=== PATIENT | female | born 1975 | race Caucasian/White ===

== ENCOUNTER 2016-04-30 14:49 | Emergency (ER) | payer MEDICARE, OTHER ==
[2016-04-30 15:16] VITALS: BP 106/59; PULSE 90; RESP 20; TEMP 98.2
[2016-04-30] MEDS ORDERED: PENICILLIN G BENZATHINE 1,200,000 UNIT/2 ML SYRINGE IM STA (15:51)
--- NOTE | 2016-04-30 15:51 | ED ---
ENT HPI - General Chief complaint: ENT Stated complaint: sore throat Time Seen by Provider: 04/30/16 15:27 Source: patient, RN notes reviewed Mode of arrival: ambulatory Limitations: no limitations - History of Present Illness Initial comments: 40 yo female presents to the ER with cc of sore throat. Patient states he had a sore throat a minimal cough for the past 2 days. Patient has depression, she just feels ill. Patient states she has history of strep throat states it feels exactly like that. Patient denies any neck pain. Patient states it hurts when she swallows. Patient states that she is not currently having any other symptoms at this time.Patient denies any recent fever, chills, shortness of breath, chest pain, back pain, abdominal pain, nausea vomiting, numbness or tingling, dysuria or hematuria, constipation or diarrhea, headaches or visual changes, or any other current symptoms. - Related Data Home Medications Medication Instructions Recorded Confirmed ARIPiprazole [Abilify] 15 mg PO DAILY 09/07/13 12/17/15 DULoxetine HCL [Cymbalta] 30 mg PO DAILY 10/16/14 12/17/15 Previous Rx's Medication Instructions Recorded levETIRAcetam [Keppra] 500 mg PO BID #28 tab 11/26/15 Naproxen 500 mg PO Q12HR 14 Days 12/17/15 Sulfamethoxazole/Trimethoprim 1 each PO Q12H 14 Days 12/17/15 [Bactrim DS 800-160 mg] Allergies Allergy/AdvReac Type Severity Reaction Status Date / Time aspirin Allergy Swelling Verified 04/30/16 15:16 Review of Systems ROS Statement: Those systems with pertinent positive or pertinent negative responses have been documented in the HPI. ROS Other: All systems not noted in ROS Statement are negative. Past Medical History Past Medical History: Seizure Disorder Additional Past Medical History / Comment(s): no meds for seziures anymore, History of Any Multi-Drug Resistant Organisms: MRSA Date of last positivie culture/infection: 2015 MDRO Source:: axilla Past Surgical History: Section Past Anesthesia/Blood Transfusion Reactions: No Reported Reaction Past Psychological History: ADD/ADHD, Anxiety, Bipolar, Depression Smoking Status: Former smoker Past Alcohol Use History: None Reported Past Drug Use History: None Reported General Exam - General Exam Comments Initial Comments: General exam: Alert, active, comfortable in no apparent distress Head: Normocephalic Eyes: Normal reaction of pupils, equal size, normal range of extraocular motion Ears: normal external ear canals, pink tympanic membranes with normal cone of light Nose: clear with pink turbinates Throat: Erythema with exudates with normal sized tonsils Neck: no masses, no nuchal rigidity Chest: no chest wall deformity Lungs: equal air entry with no crackles or wheeze CVS: S1 and S2 normal with no audible mumurs, regular rhythm Abdomen: no hepatosplenomegaly, normal bowel sounds, no guarding or rigidity Spine: no scoliosis or deformity Skin: no rashes Neurological: No focal deficits, tone is normal in all 4 extremities Limitations: no limitations Course Vital Signs 04/30/16 15:15 Temperature 98.2 F Pulse Rate 90 Respiratory 20 Rate Blood Pressure 106/59 O2 Sat by Pulse 99 Oximetry Medical Decision Making - Medical Decision Making 40-year-old female presents emergency 5 chief complaint pharyngitis. Patient does have a red erythematous throw at this time with a long history of strep pharyngitis. This we will treat her for this concern with the history. We discussed from [place] to follow. Patient states she understood all questions were answered. She'll be discharged. Disposition Clinical Impression: Pharyngitis, acute Disposition: HOME SELF-CARE Condition: Stable Instructions: Pharyngitis (ED) Additional Instructions: Please use medication as discussed. Please follow up with family doctor if symptoms have not improved over the next two days. Please return to the emergency room if your symptoms increase or worsen or for any other concerns. Referrals: Ruslan Almeida MD [Primary Care Provider] - 1-2 days Time of Disposition: 15:51
== END 2016-04-30 16:22 | disposition home or self-care (01) ==
LOC: EC 14:49
DX: J02.9 Acute pharyngitis, unspecified (principal); G40.909 Epilepsy, unspecified, not intractable, without status epilepticus; F31.9 Bipolar disorder, unspecified; F41.9 Anxiety disorder, unspecified; Z79.899 Other long term (current) drug therapy; Z86.14 Personal history of Methicillin resistant Staphylococcus aureus infection; Z88.6 Allergy status to analgesic agent; Z87.891 Personal history of nicotine dependence
CPT/HCPCS: 99282; 96372; J0561

== ENCOUNTER 2016-05-23 01:37 | Emergency (ER) | payer MEDICARE, OTHER ==
--- NOTE | 2016-05-23 01:56 | ED ---
General Adult HPI - General Chief complaint: Chest Pain Stated complaint: chest pain Time Seen by Provider: 05/23/16 01:45 Source: patient, RN notes reviewed Mode of arrival: wheelchair Limitations: no limitations - History of Present Illness Initial comments: This is a 40-year-old female presents emergency Department complaining of right- sided chest pain. Patient states that sharp in nature she states it lasts for 2 -3 seconds at a time. Patient states when she takes deep breath she can make the pain come. Patient states also moving or twisting makes the pain come. Patient denies any shortness of breath or difficulty breathing. Patient denies any chest pain when she is taking a deep breath or moving. Patient denies any recent heavy lifting or injury or any new exercises. Patient denies any nausea vomiting diarrhea. Patient denies any recent fever chills or cough. - Related Data Home Medications Medication Instructions Recorded Confirmed ARIPiprazole [Abilify] 15 mg PO DAILY 09/07/13 05/23/16 DULoxetine HCL [Cymbalta] 30 mg PO DAILY 10/16/14 05/23/16 Allergies Allergy/AdvReac Type Severity Reaction Status Date / Time aspirin Allergy Swelling Verified 05/23/16 01:44 Review of Systems ROS Statement: Those systems with pertinent positive or pertinent negative responses have been documented in the HPI. ROS Other: All systems not noted in ROS Statement are negative. Past Medical History Past Medical History: Seizure Disorder Additional Past Medical History / Comment(s): no meds for seziures anymore History of Any Multi-Drug Resistant Organisms: MRSA Date of last positivie culture/infection: 2016 MDRO Source:: axilla Past Surgical History: Section Past Anesthesia/Blood Transfusion Reactions: No Reported Reaction Past Psychological History: ADD/ADHD, Anxiety, Bipolar, Depression Smoking Status: Former smoker Past Alcohol Use History: None Reported Past Drug Use History: None Reported General Exam - General Exam Comments Initial Comments: GENERAL: Patient is well-developed and well-nourished. Patient is nontoxic and well- hydrated and is in mild distress with deep breathing ENT: Neck is soft and supple. No significant lymphadenopathy is noted. Oropharynx is clear. Moist mucous membranes. Neck has full range of motion without eliciting any pain. EYES: The sclera were anicteric and conjunctiva were pink and moist. Extraocular movements were intact and pupils were equal round and reactive to light. Eyelids were unremarkable. PULMONARY: Unlabored respirations. Good breath sounds bilaterally. No audible rales rhonchi or wheezing was noted. Patient does splint when she takes a deep breath. CARDIOVASCULAR: There is a regular rate and rhythm without any murmurs gallops or rubs. ABDOMEN: Soft and nontender with normal bowel sounds. No palpable organomegaly was noted. There is no palpable pulsatile mass. SKIN: Skin is clear with no lesions or rashes and otherwise unremarkable. NEUROLOGIC: Patient is alert and oriented x3. Cranial nerves II through XII are grossly intact. Motor and sensory are also intact. Normal speech, volume and content. Symmetrical smile. MUSCULOSKELETAL: Normal extremities with adequate strength and full range of motion. No lower extremity swelling or edema. No calf tenderness. LYMPHATICS: No significant lymphadenopathy is noted PSYCHIATRIC: Normal psychiatric evaluation. Limitations: no limitations Course Vital Signs 05/23/16 01:41 Temperature 98.5 F Pulse Rate 88 Respiratory 16 Rate Blood Pressure 118/62 O2 Sat by Pulse 100 Oximetry Medical Decision Making - Medical Decision Making EKG shows normal sinus rhythm at 83 bpm LA interval 118 QRS is 76 QT interval 356 QTC is 418. Patient's EKG shows no ST segment elevation or depression or T wave abnormalities are noted. Patient's chest x-ray shows no acute abnormality. Disposition Clinical Impression: Chest wall pain Disposition: HOME SELF-CARE Condition: Good Instructions: Chest Wall Pain (ED) Referrals: Ruslan Almeida MD [Primary Care Provider] - 1-2 days Time of Disposition: 02:18
--- NOTE | 2016-05-23 02:07 | XR ---
EXAMINATION TYPE: XR chest 2V DATE OF EXAM: 05/23/2016 2:00 AM COMPARISON: 11/14/2015 HISTORY: Chest pain difficulty in breathing. TECHNIQUE: Frontal and lateral views of the chest are obtained. FINDINGS: There is no focal air space opacity, pleural effusion, or pneumothorax seen. The cardiac silhouette size is within normal limits. The osseous structures are intact. IMPRESSION: 1. No active pulmonary infiltrates. 2. No significant interval change.
[2016-05-23] MEDS ORDERED: HYDROcodone/APAP 5-325MG 1 EACH TAB PO STA (02:17)
[2016-05-23] MEDS ORDERED: ACET/COD 300 MG/30 MG STARTER PACK 6 TAB BTL PO STA (02:18)
[2016-05-23] MEDS ORDERED: Acetaminophen-Codeine 300-30mg TAB PO STA (02:19)
[2016-05-23 03:04] VITALS: BP 128/76; PULSE 80; RESP 18; TEMP 98
== END 2016-05-23 03:04 | disposition home or self-care (01) ==
LOC: EC 01:37
DX: R07.89 Other chest pain (principal); F31.9 Bipolar disorder, unspecified; F41.9 Anxiety disorder, unspecified; Z79.899 Other long term (current) drug therapy; Z88.6 Allergy status to analgesic agent; Z87.891 Personal history of nicotine dependence
CPT/HCPCS: 71020; 93005; 99285

== ENCOUNTER 2016-10-18 20:28 | Emergency (ER) | payer MEDICARE, OTHER ==
[2016-10-18 20:40] VITALS: BP 112/68; PULSE 100; RESP 20; TEMP 98.6
[2016-10-18] MEDS ORDERED: ACETAMINOPHEN TAB 325 MG TAB PO STA (21:10)
[2016-10-18] MEDS ORDERED: DIPH,PERTUS(ACELL)TETVAC-LF 0.5 ML VIAL IM ONE (21:10)
[2016-10-18] MEDS ORDERED: CEPHALEXIN 500MG STARTER PACK 4 CAP BTL PO STA (21:10)
[2016-10-18] MEDS ORDERED: TOPICAL SKIN ADHESIVE 1 EACH AMP TOPICAL ONE (21:11)
--- NOTE | 2016-10-18 21:15 | ED ---
Wound/Laceration HPI - General Chief Complaint: Wound/Laceration Stated Complaint: Lac/Foot Time Seen by Provider: 10/18/16 20:49 Source: patient Mode of arrival: ambulatory Limitations: no limitations - History of Present Illness Initial Comments: Patient is a 40-year-old female presenting to the emergency department with complaints of laceration to the lateral plantar aspect of her left foot inferior to her big toe. Patient states there was a razor blade on the floor in her bedroom and she stepped on it. Patient currently complains of a burning pain, rated 6 out of 10, no bleeding or exacerbating factors. Patient applied a Band-Aid prior to arrival. Patient denies history of similar episode. Patient denies previous trauma or surgery to left lower extremity. Patient denies recent illness, fevers, nausea, vomiting, shortness of breath, chest pain , abdominal pain, numbness or tingling. Patient is ambulatory. - Related Data Home Medications Medication Instructions Recorded Confirmed ARIPiprazole [Abilify] 15 mg PO DAILY 09/07/13 05/23/16 DULoxetine HCL [Cymbalta] 30 mg PO DAILY 10/16/14 05/23/16 Previous Rx's Medication Instructions Recorded Cephalexin [Keflex] 500 mg PO Q6HR #28 cap 10/18/16 Allergies Allergy/AdvReac Type Severity Reaction Status Date / Time aspirin Allergy Swelling Verified 10/18/16 20:39 Review of Systems ROS Statement: Those systems with pertinent positive or pertinent negative responses have been documented in the HPI. ROS Other: All systems not noted in ROS Statement are negative. Past Medical History Past Medical History: Seizure Disorder Additional Past Medical History / Comment(s): no meds for seziures anymore History of Any Multi-Drug Resistant Organisms: MRSA Date of last positivie culture/infection: 2015 MDRO Source:: axilla Past Surgical History: Section Past Anesthesia/Blood Transfusion Reactions: No Reported Reaction Past Psychological History: ADD/ADHD, Anxiety, Bipolar, Depression Smoking Status: Former smoker Past Alcohol Use History: None Reported Past Drug Use History: None Reported General Exam - General Exam Comments Initial Comments: GENERAL: Pt awake and alert, well-appearing, well-nourished, and in no acute distress. HEAD: Atraumatic, normocephalic. EYES: Pupils equal, round, sclera anicteric, conjunctiva are normal. ENT: Moist mucous membranes. NECK: Supple without lymphadenopathy. LUNGS: Breath sounds clear to auscultation bilaterally. No wheezes, rales, or rhonchi. HEART: Heart S1, S2, no S3 or S4. Regular rate and rhythm. No murmurs, rubs or gallops. ABDOMEN: Soft, nontender, nondistended, normoactive bowel sounds. MUSCULOSKELETAL: Normal ROM to all extremities. Strength 5/5. EXTREMITIES: 2+ peripheral pulses. No edema. NEUROLOGICAL: Pt oriented x 3. No focal deficits noted. Strength and sensation grossly intact. PSYCH: Normal mood, normal affect. SKIN: Warm, dry. 1 cm superficial laceration to plantar aspect of left lateral foot inferior to great toe. Limitations: no limitations Course Vital Signs 10/18/16 20:37 Temperature 98.6 F Pulse Rate 100 Respiratory 20 Rate Blood Pressure 112/68 O2 Sat by Pulse 96 Oximetry Procedures - Laceration Laceration #1 Consent Obtained: verbal consent Indication: laceration Site: foot (Left) Size (cm): 1 Description: linear, clean Depth: simple, single layer Pre-repair: wound explored, irrigated extensively, deep structures intact Size of Sutures: other Technique: other (Dermabond applied.) Patient Tolerated Procedure: well, no complications Medical Decision Making - Medical Decision Making Laceration to left foot. Dermabond applied. Patient tolerated procedure well. Patient given prescription for Keflex. Patient instructed to follow-up with primary care physician for wound check. Patient instructed to return to the emergency department with any new or worsening symptoms. Patient agrees to treatment plan. Discharge instructions and return parameters reviewed. Disposition Clinical Impression: Laceration of plantar aspect of left foot Disposition: HOME SELF-CARE Condition: Good Instructions: Laceration (ED), Skin Adhesive Care (ED) Additional Instructions: Continue Tylenol or Motrin for pain. Avoid applying too much pressure on left foot for next 24-48 hours. Return immediately if signs of infection occur such as redness or red streaks progressing up your foot, increasing pain, swelling, or fevers. Finish oral antibiotics as prescribed. Follow-up with primary care physician as directed. Prescriptions: Cephalexin [Keflex] 500 mg PO Q6HR #28 cap Referrals: Ruslan Almeida MD [Primary Care Provider] - 1-2 days Time of Disposition: 21:15
== END 2016-10-18 21:42 | disposition home or self-care (01) ==
LOC: EC 20:28
DX: S91.312A Laceration without foreign body, left foot, initial encounter (principal); F31.9 Bipolar disorder, unspecified; F41.9 Anxiety disorder, unspecified; Z87.891 Personal history of nicotine dependence; Z79.899 Other long term (current) drug therapy; Z88.6 Allergy status to analgesic agent; Z23 Encounter for immunization; W45.8XXA Other foreign body or object entering through skin, initial encounter; Y92.003 Bedroom of unspecified non-institutional (private) residence as the place of occurrence of the external cause
CPT/HCPCS: 12001; 90471; 90715; 99282

== ENCOUNTER 2016-10-19 15:33 | Emergency (ER) | payer MEDICARE, OTHER ==
[2016-10-19 15:39] VITALS: BP 129/70; PULSE 90; RESP 20; TEMP 98.1
[2016-10-19] MEDS ORDERED: TOPICAL SKIN ADHESIVE 1 EACH AMP TOPICAL ONE (16:17)
[2016-10-19] MEDS ORDERED: GELATIN SPONGE,ABSORB (SMALL) 1 EACH SPONGE TOPICAL STA (16:18)
--- NOTE | 2016-10-19 16:24 | ED ---
General Adult HPI - General Chief complaint: Recheck/Abnormal Lab/Rx Stated complaint: L foot laceration Time Seen by Provider: 10/19/16 16:13 Source: patient, RN notes reviewed, old records reviewed Mode of arrival: ambulatory Limitations: no limitations - History of Present Illness Initial comments: This is a 40-year-old female presenting to the emergency Department chief complaint of reopening of a laceration that was glued together yesterday on her left foot. Patient reports that she stepped on a razor blade at that time. Patient states that the glue came off of her foot. She reports that it opened up and continued to bleed. Patient was restarted on antibiotics. Patient reports that she isn't taking them. She states that she is up-to-date on her tetanus shot. 20 denies any fever or chills, she denies any swelling or redness or swelling around her foot. Patient reports that it reopening she was walking on it.Patient denies any recent fever, chills, shortness of breath, chest pain, back pain, abdominal pain, nausea vomiting, numbness or tingling, dysuria or hematuria, constipation or diarrhea, headaches or visual changes, or any other current symptoms - Related Data Home Medications Medication Instructions Recorded Confirmed ARIPiprazole [Abilify] 15 mg PO DAILY 09/07/13 10/19/16 DULoxetine HCL [Cymbalta] 30 mg PO DAILY 10/16/14 10/19/16 Previous Rx's Medication Instructions Recorded Cephalexin [Keflex] 500 mg PO Q6HR #28 cap 10/18/16 Allergies Allergy/AdvReac Type Severity Reaction Status Date / Time aspirin Allergy Swelling Verified 10/19/16 16:33 Review of Systems ROS Statement: Those systems with pertinent positive or pertinent negative responses have been documented in the HPI. ROS Other: All systems not noted in ROS Statement are negative. Past Medical History Past Medical History: Seizure Disorder Additional Past Medical History / Comment(s): no meds for seziures anymore History of Any Multi-Drug Resistant Organisms: MRSA Date of last positivie culture/infection: 2015 MDRO Source:: axilla Past Surgical History: Section Past Anesthesia/Blood Transfusion Reactions: No Reported Reaction Past Psychological History: ADD/ADHD, Anxiety, Bipolar, Depression Smoking Status: Former smoker Past Alcohol Use History: None Reported Past Drug Use History: None Reported General Exam - General Exam Comments Initial Comments: Pleasant 40-year-old female. No distress. Limitations: no limitations General appearance: alert, in no apparent distress Head exam: Present: atraumatic, normocephalic, normal inspection Eye exam: Present: normal appearance, PERRL, EOMI. Absent: scleral icterus, conjunctival injection, periorbital swelling ENT exam: Present: normal exam, mucous membranes moist Neck exam: Present: normal inspection. Absent: tenderness, meningismus, lymphadenopathy Respiratory exam: Present: normal lung sounds bilaterally. Absent: respiratory distress, wheezes, rales, rhonchi, stridor Cardiovascular Exam: Present: regular rate, normal rhythm, normal heart sounds. Absent: systolic murmur, diastolic murmur, rubs, gallop, clicks GI/Abdominal exam: Present: soft, normal bowel sounds. Absent: distended, tenderness, guarding, rebound, rigid Extremities exam: Present: normal inspection, full ROM, normal capillary refill. Absent: tenderness, pedal edema, joint swelling, calf tenderness Left Upper Leg exam: Present: normal inspection, full ROM Knee exam: Present: normal inspection, full ROM Lower Leg exam: Present: normal inspection, full ROM Ankle exam: Present: normal inspection, full ROM Foot/Toe exam: Present: normal inspection, full ROM, laceration (2cm laceration on left great lateral toe) Neurovascular tendon exam: Present: no vascular compromise Gait: observed and normal Back exam: Present: normal inspection, full ROM Neurological exam: Present: alert, oriented X3, CN II-XII intact Psychiatric exam: Present: normal affect, normal mood Skin exam: Present: warm, dry, intact, normal color. Absent: rash Course Vital Signs 10/19/16 15:38 Temperature 98.1 F Pulse Rate 90 Respiratory 20 Rate Blood Pressure 129/70 O2 Sat by Pulse 98 Oximetry Medical Decision Making - Medical Decision Making This is a 40-year-old female presenting to the emergency Department chief complaint of reopening of a laceration that was glued together yesterday on her left foot. Patient reports that she stepped on a razor blade at that time. Patient states that the glue came off of her foot. She reports that it opened up and continued to bleed. Patient was restarted on antibiotics. Patient reports that she isn't taking them. She states that she is up-to-date on her tetanus shot. She denies any fever or chills, she denies any swelling or redness or swelling around her foot. Patient was given a dose of each of her foot. I then reapplied Dermabond over the area is too late to do sutures again. Discussed that she needs to minimize bearing weight over the foot until discontinued re-heal. Discussed that she can continue opening the wound with pressure in quality on her foot. Patient agrees. Discussed monitoring for any signs of infection including redness or swelling and drainage and she will also be continuing her antibiotics. Disposition Clinical Impression: Laceration of left foot Disposition: HOME SELF-CARE Condition: Good Instructions: Laceration (ED) Additional Instructions: Patient advised to be minimal weightbearing over the foot. Return to the emergency department if any alarming signs or symptoms occur. Referrals: Ruslan Almeida MD [Primary Care Provider] - 1-2 days Time of Disposition: 16:24
== END 2016-10-19 16:43 | disposition home or self-care (01) ==
LOC: EC 15:33
DX: S91.312D Laceration without foreign body, left foot, subsequent encounter (principal); F31.9 Bipolar disorder, unspecified; F41.9 Anxiety disorder, unspecified; Z87.891 Personal history of nicotine dependence; Z88.6 Allergy status to analgesic agent; Z79.899 Other long term (current) drug therapy
CPT/HCPCS: 12001; 99283

== ENCOUNTER 2016-12-27 20:19 | Emergency (ER) | payer MEDICARE, OTHER ==
[2016-12-27] MEDS ORDERED: SODIUM CHLORIDE 0.9% 1,000 ML IV STA (20:37)
[2016-12-27] MEDS ORDERED: ONDANSETRON 4 MG/2 ML VIAL IVP STA (20:37)
[2016-12-27] MEDS ORDERED: ACETAMINOPHEN TAB 500 MG TAB PO STA (20:38)
--- NOTE | 2016-12-27 20:43 | ED ---
Nausea/Vomiting/Diarrhea HPI - General Chief complaint: Nausea/Vomiting/Diarrhea Stated complaint: pain all over Time Seen by Provider: 12/27/16 20:33 Source: patient Mode of arrival: ambulatory Limitations: no limitations - History of Present Illness Initial comments: 41-year-old female patient presented to emergency department today for evaluation of general body aches, vomiting, and diarrhea. Patient states that symptoms started yesterday. Patient states that she has had 4 watery bowel movements today, and has vomited 4 times as well. Patient states that she has been having chills and general body pain as well. Patient was unaware she had a fever, however temperature is 101.1 F upon presentation. Patient states she did take Tylenol earlier but it did not improve her symptoms. Patient denies any sick contacts or recent travel. States she does feel short of breath however denies any cough, or congestion. Patient states that she has been having dysuria, hematuria, and urinary frequency for the last 2 days. Patient denies any chest pain, abdominal pain, nausea, back pain, numbness, tingling, weakness, headache, or visual changes. - Related Data Home Medications Medication Instructions Recorded Confirmed ARIPiprazole [Abilify] 15 mg PO DAILY 09/07/13 12/27/16 DULoxetine HCL [Cymbalta] 30 mg PO DAILY 10/16/14 12/27/16 Acetaminophen Tab [Tylenol Tab] 325 - 650 mg PO Q6H PRN MDD N 12/27/16 12/27/16 levETIRAcetam [Keppra] 500 mg PO BID 12/27/16 12/27/16 Previous Rx's Medication Instructions Recorded Ciprofloxacin HCl [Cipro] 500 mg PO Q12HR #20 tablet 12/28/16 Allergies Allergy/AdvReac Type Severity Reaction Status Date / Time aspirin Allergy Swelling Verified 12/27/16 20:47 Review of Systems ROS Statement: Those systems with pertinent positive or pertinent negative responses have been documented in the HPI. ROS Other: All systems not noted in ROS Statement are negative. Past Medical History Past Medical History: Seizure Disorder Additional Past Medical History / Comment(s): no meds for seziures anymore History of Any Multi-Drug Resistant Organisms: MRSA Date of last positivie culture/infection: 2015 MDRO Source:: axilla Past Surgical History: Section Past Anesthesia/Blood Transfusion Reactions: No Reported Reaction Past Psychological History: ADD/ADHD, Anxiety, Bipolar, Depression Smoking Status: Former smoker Past Alcohol Use History: None Reported Past Drug Use History: None Reported General Exam Limitations: no limitations General appearance: alert, in no apparent distress Eye exam: Present: normal appearance, PERRL, EOMI. Absent: scleral icterus, conjunctival injection, periorbital swelling ENT exam: Present: normal exam, normal oropharynx, mucous membranes moist Neck exam: Present: normal inspection, full ROM. Absent: tenderness, meningismus, lymphadenopathy Respiratory exam: Present: normal lung sounds bilaterally. Absent: respiratory distress, wheezes, rales, rhonchi, stridor Cardiovascular Exam: Present: normal rhythm, tachycardia, normal heart sounds. Absent: regular rate, systolic murmur, diastolic murmur, rubs, gallop, clicks GI/Abdominal exam: Present: soft, normal bowel sounds. Absent: distended, tenderness, guarding, rebound, rigid Extremities exam: Present: normal inspection, full ROM, normal capillary refill. Absent: tenderness, pedal edema, joint swelling, calf tenderness Back exam: Present: normal inspection, CVA tenderness (R), CVA tenderness (L) Neurological exam: Present: alert, oriented X3, CN II-XII intact Psychiatric exam: Present: normal affect, normal mood Skin exam: Present: warm, dry, intact, normal color. Absent: rash Course Vital Signs 12/27/16 12/27/16 12/27/16 20:23 20:36 21:57 Temperature 99.3 F 101.1 F H 99.0 F Pulse Rate 104 H 89 Respiratory 18 20 Rate Blood Pressure 99/49 106/51 O2 Sat by Pulse 100 99 Oximetry 12/27/16 23:57 Temperature 97.9 F Pulse Rate 84 Respiratory 16 Rate Blood Pressure 102/47 O2 Sat by Pulse 97 Oximetry Medical Decision Making - Medical Decision Making 41-year-old male patient presented to emergency department today for evaluation of vomiting and diarrhea as well as dysuria. Labs reviewed did show white blood cell count 15.4 with a neutrophil count 12.8. Urinalysis showed 1+ protein, small amount of blood, small amount of leukocyte esterase, 15 white blood cells, 8 urinary squamous epithelial cells, occasional amorphous sediment , and a few urine mucus. Lactic acid was negative. Blood cultures were sent. Urine culture was sent. CT of the abdomen and pelvis showed no acute intra- abdominal abnormalities. Patient's vital signs remained stable throughout stay. Patient will be discharged home with diagnosis of urinary tract infection given a prescription for Cipro. Patient did receive 1 g of Rocephin here in the emergency department. She is instructed to take ibuprofen and Tylenol for pain and fever control. She is instructed to follow-up with her primary care physician for recheck in 1-2 days. She is instructed to return here immediately for any new, worsening, or concerning symptoms. Patient verbalizes understanding and agrees with this plan. - Lab Data Result diagrams: 12/27/16 20:45 12/27/16 20:45 Lab Results 12/27/16 12/27/16 12/27/16 Range/Units 20:45 20:45 20:45 WBC 15.4 H (3.8-10.6) k/uL RBC 4.74 (3.80-5.40) m/uL Hgb 14.7 (11.4-16.0) gm/dL Hct 43.9 (34.0-46.0) % MCV 92.6 (80.0-100.0) fL MCH 31.1 (25.0-35.0) pg MCHC 33.6 (31.0-37.0) g/dL RDW 12.6 (11.5-15.5) % Plt Count 221 (150-450) k/uL Neutrophils % 84 % Lymphocytes % 10 % Monocytes % 4 % Eosinophils % 1 % Basophils % 0 % Neutrophils # 12.8 H (1.3-7.7) k/uL Lymphocytes # 1.5 (1.0-4.8) k/uL Monocytes # 0.7 (0-1.0) k/uL Eosinophils # 0.1 (0-0.7) k/uL Basophils # 0.1 (0-0.2) k/uL Sodium 140 (137-145) mmol/L Potassium 3.8 (3.5-5.1) mmol/L Chloride 106 (98-107) mmol/L Carbon Dioxide 22 (22-30) mmol/L Anion Gap 12 mmol/L BUN 9 (7-17) mg/dL Creatinine 1.00 (0.52-1.04) mg/dL Est GFR (MDRD) Af Amer >60 (>60 ml/min/1.73 sqM) Est GFR (MDRD) Non-Af >60 (>60 ml/min/1.73 sqM) Glucose 95 (74-99) mg/dL Plasma Lactic Acid Kyle (0.7-2.0) mmol/L Calcium 9.9 (8.4-10.2) mg/dL Total Bilirubin 0.3 (0.2-1.3) mg/dL AST 17 (14-36) U/L ALT 27 (9-52) U/L Alkaline Phosphatase 55 (38-126) U/L Total Protein 7.2 (6.3-8.2) g/dL Albumin 4.4 (3.5-5.0) g/dL Amylase 54 (30-110) U/L Lipase 178 (23-300) U/L Urine Color Yellow Urine Appearance Clear (Clear) Urine pH 5.5 (5.0-8.0) Ur Specific [place] 1.025 (1.001-1.035) Urine Protein 1+ H (Negative) Urine Glucose (UA) Negative (Negative) Urine Ketones Negative (Negative) Urine Blood Small H (Negative) Urine Nitrite Negative (Negative) Urine Bilirubin Negative (Negative) Urine Urobilinogen 2.0 (<2.0) mg/dL Ur Leukocyte Esterase Small H (Negative) Urine RBC 2 (0-5) /hpf Urine WBC 15 H (0-5) /hpf Ur Squamous Epith Cells 8 H (0-4) /hpf Amorphous Sediment Occasional H (None) /hpf Urine Mucus Few H (None) /hpf 12/27/16 Range/Units 21:47 WBC (3.8-10.6) k/uL RBC (3.80-5.40) m/uL Hgb (11.4-16.0) gm/dL Hct (34.0-46.0) % MCV (80.0-100.0) fL MCH (25.0-35.0) pg MCHC (31.0-37.0) g/dL RDW (11.5-15.5) % Plt Count (150-450) k/uL Neutrophils % % Lymphocytes % % Monocytes % % Eosinophils % % Basophils % % Neutrophils # (1.3-7.7) k/uL Lymphocytes # (1.0-4.8) k/uL Monocytes # (0-1.0) k/uL Eosinophils # (0-0.7) k/uL Basophils # (0-0.2) k/uL Sodium (137-145) mmol/L Potassium (3.5-5.1) mmol/L Chloride (98-107) mmol/L Carbon Dioxide (22-30) mmol/L Anion Gap mmol/L BUN (7-17) mg/dL Creatinine (0.52-1.04) mg/dL Est GFR (MDRD) Af Amer (>60 ml/min/1.73 sqM) Est GFR (MDRD) Non-Af (>60 ml/min/1.73 sqM) Glucose (74-99) mg/dL Plasma Lactic Acid [place] 0.8 (0.7-2.0) mmol/L Calcium (8.4-10.2) mg/dL Total Bilirubin (0.2-1.3) mg/dL AST (14-36) U/L ALT (9-52) U/L Alkaline Phosphatase (38-126) U/L Total Protein (6.3-8.2) g/dL Albumin (3.5-5.0) g/dL Amylase (30-110) U/L Lipase (23-300) U/L Urine Color Urine Appearance (Clear) Urine pH (5.0-8.0) Ur Specific [place] (1.001-1.035) Urine Protein (Negative) Urine Glucose (UA) (Negative) Urine Ketones (Negative) Urine Blood (Negative) Urine Nitrite (Negative) Urine Bilirubin (Negative) Urine Urobilinogen (<2.0) mg/dL Ur Leukocyte Esterase (Negative) Urine RBC (0-5) /hpf Urine WBC (0-5) /hpf Ur Squamous Epith Cells (0-4) /hpf Amorphous Sediment (None) /hpf Urine Mucus (None) /hpf - Radiology Data Radiology results: report reviewed, image reviewed Frontal and lateral views of the chest are obtained. There is no focal airspace opacity, pleural effusion, or pneumothorax seen. The cardiac silhouette size is within normal limits. The osseous structures are intact. Impression by Dr. Camacho shows no acute cardiopulmonary process. CT of the abdomen and pelvis report is reviewed in its entirety. Impression by Dr. Garza shows no acute intra-abdominal or pelvic abnormality is identified. Disposition Clinical Impression: Urinary tract infection Disposition: HOME SELF-CARE Condition: Good Instructions: Urinary Tract Infection in Women (ED) Additional Instructions: Increase fluids. Complete antibiotic prescription in full. Follow-up with her primary care physician for recheck in 1-2 days. Follow-up for repeat urinalysis once antibiotics are complete to ensure clearance of infection. Return here immediately for any new, worsening, or concerning symptoms. Prescriptions: Ciprofloxacin HCl [Cipro] 500 mg PO Q12HR #20 tablet Referrals: Ruslan Almeida MD [Primary Care Provider] - 1-2 days Time of Disposition: 00:23
[2016-12-27 21:01] LABS: Basophils # (A) 0.1 k/uL (0-0.2); Basophils % (A) 0 %; CH 31.2; CHCM 33.8; Eosinophils # (A) 0.1 k/uL (0-0.7); Eosinophils % (A) 1 %; HCT 43.9 % (34.0-46.0); HDW 2.33; HGB 14.7 gm/dL (11.4-16.0); Luc # (Auto) 0.21; Luc % (Auto) 1; Lymphocytes # (A) 1.5 k/uL (1.0-4.8); Lymphocytes % (A) 10 %; MCH 31.1 pg (25.0-35.0); MCHC 33.6 g/dL (31.0-37.0); MCV 92.6 fL (80.0-100.0); Mean Platelet Volume 7.5; Monocytes # (A) 0.7 k/uL (0-1.0); Monocytes % (A) 4 %; Neutrophils # (A) 12.8 k/uL (1.3-7.7); Neutrophils % (A) 84 %; RBC 4.74 m/uL (3.80-5.40); RDW 12.6 % (11.5-15.5); WBC 15.4 k/uL (3.8-10.6)
[2016-12-27 21:04] LABS: Amorphous Sediment,Urine Occasional /hpf; Appearance,Urine Clear (Clear); Bilirubin,Urine Negative (Negative); Glucose,Urine (UA) Negative (Negative); Ketones,Urine Negative (Negative); Leukocyte Esterase,Urine Small (Negative); Mucus,Urine Few /hpf; Nitrite,Urine Negative (Negative); PH, Urine 5.5 (5.0-8.0); Particle Count 6037; Protein,Urine 1+ (Negative); RBC,Urine 2 /hpf (0-5); Specific Gravity,Urine 1.025 (1.001-1.035); Squamous Epithelial Cell,Urine 8 /hpf (0-4); UA Billing (MACRO vs. MICRO) MICRO; WBC,Urine 15 /hpf (0-5)
[2016-12-27 21:11] LABS: ALT 27 U/L (9-52); AST 17 U/L (14-36); Alkaline Phosphatase 55 U/L (38-126); Amylase 54 U/L (30-110); Anion Gap 12 mmol/L; Blood Urea Nitrogen 9 mg/dL (7-17); Calcium 9.9 mg/dL (8.4-10.2); Carbon Dioxide 22 mmol/L (22-30); Chloride 106 mmol/L (98-107); Glucose 95 mg/dL (74-99); Non-African American GFR(MDRD) >60 (>60 ml/min/1.73 sqM); Potassium 3.8 mmol/L (3.5-5.1); Sodium 140 mmol/L (137-145); Total Bilirubin 0.3 mg/dL (0.2-1.3); Total Protein 7.2 g/dL (6.3-8.2)
--- NOTE | 2016-12-27 21:21 | XR ---
EXAMINATION TYPE: XR chest 2V DATE OF EXAM: 12/27/2016 COMPARISON: 05/23/2016 HISTORY: Body aches and nausea and vomiting TECHNIQUE: Frontal and lateral views of the chest are obtained. FINDINGS: There is no focal air space opacity, pleural effusion, or pneumothorax seen. The cardiac silhouette size is within normal limits. The osseous structures are intact. IMPRESSION: No acute cardiopulmonary process.
[2016-12-27] MEDS ORDERED: RX INFO: IV CONTRAST WAS GIVEN 1 EACH MISC MISCELLANE PRN (21:34)
--- NOTE | 2016-12-27 23:25 | CT ---
EXAM: CT Abdomen and Pelvis With Intravenous Contrast CLINICAL HISTORY: Reason: Nausea, vomiting, diarrhea, fever. TECHNIQUE: Axial computed tomography images of the abdomen and pelvis with intravenous contrast. CTDI is 24.42 mGy and DLP is 900 mGy-cm. This CT exam was performed using one or more of the following dose reduction techniques: automated exposure control, adjustment of the mA and/or kV according to patient size, and/or use of iterative reconstruction technique. CONTRAST: 100 mL of Omnipaque 300 administered intravenously. COMPARISON: 02/03/15 CT. FINDINGS: Lower thorax: No acute findings. ABDOMEN: Liver: Stable. No mass. Gallbladder and bile ducts: Unremarkable. No calcified stones. No ductal dilation. Pancreas: Stable. No ductal dilation. Spleen: Stable. No splenomegaly. Adrenals: Unremarkable. No mass. Kidneys and ureters: Stable. No stone or hydronephrosis. Stomach and bowel: In general bowel is slightly less well assessed in the absence of enteric contrast. Decompressed stomach. No evidence of intestinal obstruction. No localizing inflammatory changes are seen. Appendix: No findings to suggest acute appendicitis. PELVIS: Bladder: Unremarkable. No mass. Reproductive: The ovaries are both mildly prominent, each containing multiple small follicles as best depicted on the coronal reformats, which can be seen in the setting of polycystic ovarian disease. Heterogeneity of the uterus includes mild hypodensity along its posterior margin, that may represent one or more small fibroids. ABDOMEN and PELVIS: Intraperitoneal space: Trace free fluid in the cul-de-sac is within physiologic normal limits. No free air or abscess. Bones/joints: Stable, including slight leftward curvature of the lumbar spine, and hypertrophic changes at the symphysis pubis level. Soft tissues: Unremarkable. Vasculature: No abdominal aortic aneurysm. Lymph nodes: No adenopathy is seen. IMPRESSION: No new acute intra-abdominal or pelvic abnormality is identified, as above.
[2016-12-27 23:58] VITALS: BP 102/47; PULSE 84; RESP 16; TEMP 97.9
== END 2016-12-28 00:33 | disposition home or self-care (01) ==
LOC: EC 20:19
DX: N39.0 Urinary tract infection, site not specified (principal); R11.2 Nausea with vomiting, unspecified; G40.909 Epilepsy, unspecified, not intractable, without status epilepticus; F31.9 Bipolar disorder, unspecified; F41.9 Anxiety disorder, unspecified; Z86.14 Personal history of Methicillin resistant Staphylococcus aureus infection; Z87.891 Personal history of nicotine dependence; Z88.6 Allergy status to analgesic agent; Z79.899 Other long term (current) drug therapy
CPT/HCPCS: 36415; 80053; 82150; 83605; 83690; 85025; 81001; 87040; 71020; 74177; 99284; 96374; 96361; J2405; J0696; Q9967

== ENCOUNTER 2017-04-24 18:16 | Emergency (ER) | payer MEDICARE, OTHER ==
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
--- NOTE | 2017-04-24 19:38 | CT ---
EXAMINATION TYPE: CT facial bones wo con DATE OF EXAM: 04/24/2017 COMPARISON: NONE HISTORY: Facial bruising, swelling and laceration post seizure today. CT DLP: 635.1 mGycm Automated exposure control for dose reduction was used. TECHNIQUE: CT scan of the sinuses is performed without contrast, axial images are obtained, coronal r eformatted images are also reviewed. FINDINGS: There is bilateral patency of the [place] complex. There is no evidence of a blowout fra cture. Orbital margins are intact. [place] is intact. Mandibular ring is intact. Zygomatic arches bernabe ear normal. The nasal bone appears intact. There is fairly normal aeration of the paranasal sinuses. I see no bony destructive process. IMPRESSION: No fracture seen. There is soft tissue swelling over the right frontal bone and on the ri ght side of the nose. Soft tissue air bubbles are present consistent with laceration.
--- NOTE | 2017-04-24 19:43 | CT ---
EXAMINATION TYPE: CT brain regulo [place] con DATE OF EXAM: 04/24/2017 COMPARISON: 04/19/2017 HISTORY: Facial bruising, swelling and laceration post seizure today. CT DLP: 1329.7 mGycm Automated exposure control for dose reduction was used. TECHNIQUE: CT scan of the head and cervical spine are performed without contrast. FINDINGS: Ventricles and sulci appear normal. There is no mass effect nor midline shift. There is n o sign of intracranial hemorrhage. The cervical vertebra have fairly normal spacing and alignment. Posterior elements are intact. Skull base is intact. There is mild spondylosis at C5-6. Facet joints are intact. IMPRESSION: Negative CT scan of the brain. Negative CT scan of the cervical spine. No change.
[2017-04-24 23:35] VITALS: BP 116/61; PULSE 90; RESP 16; TEMP 98
== END 2017-04-24 20:57 | disposition home or self-care (01) ==
LOC: EC 18:16
DX: S01.111A Laceration without foreign body of right eyelid and periocular area, initial encounter (principal); G40.909 Epilepsy, unspecified, not intractable, without status epilepticus; F31.9 Bipolar disorder, unspecified; F41.9 Anxiety disorder, unspecified; Z87.891 Personal history of nicotine dependence; Z86.14 Personal history of Methicillin resistant Staphylococcus aureus infection; Z79.899 Other long term (current) drug therapy; Z88.6 Allergy status to analgesic agent; W01.198A Fall on same level from slipping, tripping and stumbling with subsequent striking against other object, initial encounter
CPT/HCPCS: 12013; 70450; 70486; 72125; 99283

== ENCOUNTER 2017-09-28 07:32 | Emergency (ER) | payer MEDICARE, OTHER ==
[2017-09-28] MEDS ORDERED: SODIUM CHLORIDE 0.9% 1,000 ML IV ONE (07:43)
[2017-09-28] MEDS ORDERED: LORazepam 2 MG/ML INJ IV STA (07:46)
[2017-09-28 08:33] LABS: Basophils % (A) 1 %; Eosinophils % (A) 0 %; HCT 43.6 % (34.0-46.0); HGB 14.2 gm/dL (11.4-16.0); Lymphocytes # (A) 2.5 k/uL (1.0-4.8); Lymphocytes % (A) 31 %; MCHC 32.7 g/dL (31.0-37.0); MCV 91.9 fL (80.0-100.0); Mean Platelet Volume 7.1; Monocytes # (A) 0.3 k/uL (0-1.0); Monocytes % (A) 4 %; Neutrophils % (A) 63 %; Platelet Count 263 k/uL (150-450); RBC 4.75 m/uL (3.80-5.40); RDW 13.2 % (11.5-15.5)
[2017-09-28 08:45] LABS: ALT 20 U/L (9-52); AST 18 U/L (14-36); Albumin 4.6 g/dL (3.5-5.0); Alkaline Phosphatase 41 U/L (38-126); Anion Gap 13 mmol/L; Blood Urea Nitrogen 12 mg/dL (7-17); Calcium 10.3 mg/dL (8.4-10.2); Carbon Dioxide 26 mmol/L (22-30); Chloride 105 mmol/L (98-107); Glucose 81 mg/dL (74-99); Potassium 4.4 mmol/L (3.5-5.1); Sodium 144 mmol/L (137-145); Total Bilirubin 0.5 mg/dL (0.2-1.3); Total Protein 6.9 g/dL (6.3-8.2)
[2017-09-28 08:52] LABS: Amphetamine Screen,Urine Not Detected (NotDetected); Barbiturate Screen,Urine Not Detected (NotDetected); Benzodiazepines Screen,Urine Not Detected (NotDetected); Cocaine Screen,Urine Detected (NotDetected); Methadone Screen, Urine Not Detected (NotDetected); Opiate Screen,Urine Not Detected (NotDetected); Oxycodone Screen, Urine Not Detected (NotDetected); Phencyclidine Screen,Urine Not Detected (NotDetected); Tricyclic Antidepressant,Urine Not Detected (NotDetected); Urn Cannabinoid Scrn Not Detected (NotDetected)
[2017-09-28 09:17] VITALS: PULSE 76
--- NOTE | 2017-09-28 09:49 | ED ---
Female Urogenital HPI - General Chief complaint: Vaginal Bleeding Stated complaint: Vaginal Bleeding Time Seen by Provider: 09/28/17 07:41 Source: patient Mode of arrival: ambulatory Limitations: no limitations - History of Present Illness Initial comments: 41 years O female comes in with the vaginal bleeding off-and-on for the last 3 weeks she said she has been and episode for about 13 years now she also complained that she had a seizure several days ago she said she feels his seizure frequency has increased but unfortunately he hasn't had her Keppra for quite a few months now she stated she does take her Cymbalta and Abilify regularly. His any alcohol use she said she did some cocaine last night. Denies any headaches no neck stiffness no chest pain or shortness of breath no abdominal pain no frequency urgency dysuria - Related Data Home Medications Medication Instructions Recorded Confirmed ARIPiprazole [Abilify] 15 mg PO DAILY 09/07/13 04/24/17 DULoxetine HCL [Cymbalta] 30 mg PO DAILY 10/16/14 04/24/17 Previous Rx's Medication Instructions Recorded levETIRAcetam [Keppra] 500 mg PO Q12HR #60 tab 04/19/17 levETIRAcetam [Keppra] 500 mg PO Q12HR #60 tab 09/28/17 Allergies Allergy/AdvReac Type Severity Reaction Status Date / Time aspirin Allergy Swelling Verified 09/28/17 07:36 Review of Systems ROS Statement: Those systems with pertinent positive or pertinent negative responses have been documented in the HPI. ROS Other: All systems not noted in ROS Statement are negative. Past Medical History Past Medical History: Seizure Disorder Additional Past Medical History / Comment(s): no meds for seziures anymore History of Any Multi-Drug Resistant Organisms: MRSA Date of last positivie culture/infection: 2015 MDRO Source:: axilla Past Surgical History: Section Past Anesthesia/Blood Transfusion Reactions: No Reported Reaction Past Psychological History: ADD/ADHD, Anxiety, Bipolar, Depression Smoking Status: Never smoker Past Alcohol Use History: None Reported Past Drug Use History: Methamphetamine General Exam - General Exam Comments Initial Comments: General: The patient is awake and alert, in no distress, and does not appear acutely ill. Skin: Skin is warm and dry and no rashes or lesions are noted. Eye: Pupils are equal, round and reactive to light, extra-ocular movements are intact; there is normal conjunctiva bilaterally. Ears, nose, mouth and throat: There are moist mucous membranes and no oral lesions. Neck: The neck is supple, there is no tenderness or JVD. Cardiovascular: There is a regular rate and rhythm. No murmur, rub or gallop is appreciated. Respiratory: To auscultation bilateral, no wheezing no rhonchi no distress respiratory hale noticed Gastrointestinal: Soft, non-distended, non-tender abdomen without masses or organomegaly noted. There is no rebound or guarding present. Bowel sounds are unremarkable. Pelvic exam is quite unremarkable there were no lesions noticed on the genitals , no purulent vaginal discharge noticed no cervical motion tenderness noticed there was no bleeding during the exam either Back: There is no tenderness to palpation in the midline. There is no obvious deformity. Musculoskeletal: Normal ROM, no tenderness, There is no pedal edema. There is no calf tenderness or swelling. No cords were appreciated. Neurological: CN II-XII intact, Cranial nerves III through XII are intact. There are no obvious motor or sensory deficits. Coordination appears grossly intact. Speech is normal. Psychiatric: Cooperative, appropriate mood & affect, normal judgment. Limitations: no limitations Course Vital Signs 09/28/17 09/28/17 09/28/17 07:33 08:15 09:15 Temperature 98.2 F Pulse Rate 85 82 76 Respiratory 20 18 18 Rate Blood Pressure 130/81 117/66 115/64 O2 Sat by Pulse 100 99 100 Oximetry She'll be referred to Dr. Alexander for her follow-up on her seizure disorder though she has been now noncompliant she'll get a prescription of Keppra 500 mg twice daily and she be referred to Dr. Vega surgical pathologist tax professional today for for her vaginal bleeding or template. Her hemoglobin now is quite stable beta hCG is negative. Medical Decision Making - Lab Data Result diagrams: 09/28/17 08:10 09/28/17 08:10 Lab Results 09/28/17 09/28/17 09/28/17 Range/Units 08:05 08:05 08:10 WBC 8.0 (3.8-10.6) k/uL RBC 4.75 (3.80-5.40) m/uL Hgb 14.2 (11.4-16.0) gm/dL Hct 43.6 (34.0-46.0) % MCV 91.9 (80.0-100.0) fL MCH 30.0 (25.0-35.0) pg MCHC 32.7 (31.0-37.0) g/dL RDW 13.2 (11.5-15.5) % Plt Count 263 (150-450) k/uL Neutrophils % 63 % Lymphocytes % 31 % Monocytes % 4 % Eosinophils % 0 % Basophils % 1 % Neutrophils # 5.0 (1.3-7.7) k/uL Lymphocytes # 2.5 (1.0-4.8) k/uL Monocytes # 0.3 (0-1.0) k/uL Eosinophils # 0.0 (0-0.7) k/uL Basophils # 0.0 (0-0.2) k/uL Sodium (137-145) mmol/L Potassium (3.5-5.1) mmol/L Chloride (98-107) mmol/L Carbon Dioxide (22-30) mmol/L Anion Gap mmol/L BUN (7-17) mg/dL Creatinine (0.52-1.04) mg/dL Est GFR (CKD-EPI)AfAm (>60 ml/min/1.73 sqM) Est GFR (CKD-EPI)NonAf (>60 ml/min/1.73 sqM) Glucose (74-99) mg/dL Calcium (8.4-10.2) mg/dL Total Bilirubin (0.2-1.3) mg/dL AST (14-36) U/L ALT (9-52) U/L Alkaline Phosphatase (38-126) U/L Total Protein (6.3-8.2) g/dL Albumin (3.5-5.0) g/dL Urine HCG, Qual Not Detected (Not Detectd) Urine Opiates Screen Not Detected (NotDetected) Ur Oxycodone Screen Not Detected (NotDetected) Urine Methadone Screen Not Detected (NotDetected) Ur Propoxyphene Screen Not Detected (NotDetected) Ur Barbiturates Screen Not Detected (NotDetected) U Tricyclic Antidepress Not Detected (NotDetected) Ur Phencyclidine Scrn Not Detected (NotDetected) Ur Amphetamines Screen Not Detected (NotDetected) U Methamphetamines Scrn Not Detected (NotDetected) U Benzodiazepines Scrn Not Detected (NotDetected) Urine Cocaine Screen Detected H (NotDetected) U Marijuana (THC) Screen Not Detected (NotDetected) 09/28/17 Range/Units 08:10 WBC (3.8-10.6) k/uL RBC (3.80-5.40) m/uL Hgb (11.4-16.0) gm/dL Hct (34.0-46.0) % MCV (80.0-100.0) fL MCH (25.0-35.0) pg MCHC (31.0-37.0) g/dL RDW (11.5-15.5) % Plt Count (150-450) k/uL Neutrophils % % Lymphocytes % % Monocytes % % Eosinophils % % Basophils % % Neutrophils # (1.3-7.7) k/uL Lymphocytes # (1.0-4.8) k/uL Monocytes # (0-1.0) k/uL Eosinophils # (0-0.7) k/uL Basophils # (0-0.2) k/uL Sodium 144 (137-145) mmol/L Potassium 4.4 (3.5-5.1) mmol/L Chloride 105 (98-107) mmol/L Carbon Dioxide 26 (22-30) mmol/L Anion Gap 13 mmol/L BUN 12 (7-17) mg/dL Creatinine 0.91 (0.52-1.04) mg/dL Est GFR (CKD-EPI)AfAm >90 (>60 ml/min/1.73 sqM) Est GFR (CKD-EPI)NonAf 80 (>60 ml/min/1.73 sqM) Glucose 81 (74-99) mg/dL Calcium 10.3 H (8.4-10.2) mg/dL Total Bilirubin 0.5 (0.2-1.3) mg/dL AST 18 (14-36) U/L ALT 20 (9-52) U/L Alkaline Phosphatase 41 (38-126) U/L Total Protein 6.9 (6.3-8.2) g/dL Albumin 4.6 (3.5-5.0) g/dL Urine HCG, Qual (Not Detectd) Urine Opiates Screen (NotDetected) Ur Oxycodone Screen (NotDetected) Urine Methadone Screen (NotDetected) Ur Propoxyphene Screen (NotDetected) Ur Barbiturates Screen (NotDetected) U Tricyclic Antidepress (NotDetected) Ur Phencyclidine Scrn (NotDetected) Ur Amphetamines Screen (NotDetected) U Methamphetamines Scrn (NotDetected) U Benzodiazepines Scrn (NotDetected) Urine Cocaine Screen (NotDetected) U Marijuana (THC) Screen (NotDetected) Disposition Clinical Impression: Vaginal bleeding, Seizure disorder Disposition: HOME SELF-CARE Instructions: Menstruation (ED) Prescriptions: levETIRAcetam [Keppra] 500 mg PO Q12HR #60 tab Is patient prescribed a controlled substance at d/c from ED?: No Referrals: Ruslan Almeida MD [Primary Care Provider] - 1-2 days Yola Glover DO [Doctor of Osteopathic Medicine] - 1-2 days Eyad Alexander MD [STAFF PHYSICIAN] - 1-2 days
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
[2017-09-28 11:15] VITALS: BP 102/56; RESP 16; TEMP 97.9
== END 2017-09-28 11:23 | disposition home or self-care (01) ==
LOC: EC 07:32
DX: N93.9 Abnormal uterine and vaginal bleeding, unspecified (principal); G40.909 Epilepsy, unspecified, not intractable, without status epilepticus; F12.90 Cannabis use, unspecified, uncomplicated; F31.9 Bipolar disorder, unspecified; F41.9 Anxiety disorder, unspecified; Z79.899 Other long term (current) drug therapy; Z88.6 Allergy status to analgesic agent; Z86.14 Personal history of Methicillin resistant Staphylococcus aureus infection; Z53.8 Procedure and treatment not carried out for other reasons
CPT/HCPCS: 36415; 76830; 76856; 80053; 80177; 80306; 81025; 85025; 93976; 96360; 96361; 99284

== ENCOUNTER 2017-10-01 02:35 | Emergency (ER) | payer MEDICARE, OTHER ==
[2017-10-01 03:42] LABS: Basophils % (A) 0 %; Eosinophils # (A) 0.1 k/uL (0-0.7); Eosinophils % (A) 1 %; HCT 45.6 % (34.0-46.0); HGB 14.8 gm/dL (11.4-16.0); Lymphocytes # (A) 1.9 k/uL (1.0-4.8); Lymphocytes % (A) 21 %; MCH 29.9 pg (25.0-35.0); MCHC 32.4 g/dL (31.0-37.0); MCV 92.1 fL (80.0-100.0); Mean Platelet Volume 7.1; Monocytes # (A) 0.4 k/uL (0-1.0); Monocytes % (A) 4 %; Neutrophils # (A) 6.8 k/uL (1.3-7.7); Neutrophils % (A) 73 %; Platelet Count 240 k/uL (150-450); RBC 4.95 m/uL (3.80-5.40); RDW 13.1 % (11.5-15.5); WBC 9.3 k/uL (3.8-10.6)
[2017-10-01 03:46] LABS: Appearance,Urine Cloudy (Clear); Bacteria,Urine Occasional /hpf; Bilirubin,Urine Negative (Negative); Blood,Urine Small (Negative); Color,Urine Yellow; Glucose,Urine (UA) Negative (Negative); Hyaline Casts,Urine 4 /lpf (0-2); Ketones,Urine Negative (Negative); Leukocyte Esterase,Urine Moderate (Negative); Mucus,Urine Many /hpf; Nitrite,Urine Negative (Negative); PH, Urine 5.5 (5.0-8.0); Protein,Urine Trace (Negative); RBC,Urine 2 /hpf (0-5); Specific Gravity,Urine 1.018 (1.001-1.035); Squamous Epithelial Cell,Urine 1 /hpf (0-4); WBC,Urine 16 /hpf (0-5)
[2017-10-01 03:49] LABS: Albumin 4.6 g/dL (3.5-5.0); Potassium 3.9 mmol/L (3.5-5.1); Total Bilirubin 0.4 mg/dL (0.2-1.3); Total Protein 6.9 g/dL (6.3-8.2)
[2017-10-01 03:53] LABS: Amphetamine Screen,Urine Not Detected (NotDetected); Barbiturate Screen,Urine Not Detected (NotDetected); Benzodiazepines Screen,Urine Not Detected (NotDetected); Cocaine Screen,Urine Detected (NotDetected); Methadone Screen, Urine Not Detected (NotDetected); Opiate Screen,Urine Not Detected (NotDetected); Oxycodone Screen, Urine Not Detected (NotDetected); Phencyclidine Screen,Urine Not Detected (NotDetected); Tricyclic Antidepressant,Urine Not Detected (NotDetected); Urn Cannabinoid Scrn Not Detected (NotDetected)
--- NOTE | 2017-10-01 04:27 | CT ---
EXAMINATION TYPE: CT brain regulo wo con DATE OF EXAM: 10/01/2017 COMPARISON: NONE HISTORY: seizure with head injury CT DLP: 1202.30 mGycm Automated exposure control for dose reduction was used. TECHNIQUE: CT scan of the head and cervical spine are performed without contrast. FINDINGS: Ventricles and sulci appear normal. There is no mass effect nor midline shift. There is n o sign of intracranial hemorrhage. The calvarium is intact. The cervical vertebra show normal alignment and spacing. Posterior elements are intact. Facet joints are intact. Skull base is intact. There is no evidence of a fracture. IMPRESSION: Negative CT scan of the cervical spine. Negative CT scan of the brain. There is fore head laceration of the scalp over the midline frontal marvel ne.
[2017-10-01] MEDS ORDERED: LIDOCAINE 1% INJ 10MG/ML (20 ML MDV) SQ ONE (06:34)
[2017-10-01] MEDS ORDERED: MORPHINE SULFATE 2 MG/ML SYRINGE IV STA (07:51)
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
[2017-10-01 08:51] VITALS: BP 107/51; PULSE 66; RESP 18; TEMP 97.9
== END 2017-10-01 08:52 | disposition home or self-care (01) ==
LOC: EC 02:35
DX: S09.90XA Unspecified injury of head, initial encounter (principal); F14.10 Cocaine abuse, uncomplicated; G40.909 Epilepsy, unspecified, not intractable, without status epilepticus; F31.9 Bipolar disorder, unspecified; F41.9 Anxiety disorder, unspecified; Z79.899 Other long term (current) drug therapy; Z88.6 Allergy status to analgesic agent; Z86.14 Personal history of Methicillin resistant Staphylococcus aureus infection; W22.8XXA Striking against or struck by other objects, initial encounter; Y93.89 Activity, other specified; Y92.009 Unspecified place in unspecified non-institutional (private) residence as the place of occurrence of the external cause
CPT/HCPCS: 99284; 96374; 36415; 93005; 80053; 80177; 85025; 81001; 80306; 72125; 70450; J2001; J2270

== ENCOUNTER 2017-10-28 09:52 | Emergency (ER) | payer MEDICARE, OTHER ==
[2017-10-28 10:06] VITALS: BP 92/58; PULSE 93; RESP 18; TEMP 99
--- NOTE | 2017-10-28 10:24 | ED ---
General Adult HPI - General Chief complaint: ENT Stated complaint: FB in Ear Time Seen by Provider: 10/28/17 10:00 Source: patient, RN notes reviewed Mode of arrival: ambulatory Limitations: no limitations - History of Present Illness Initial comments: This is a 41-year-old female who presents emergency Department complaining of a foreign body in the right ear patient states he end of a cotton swab fell off into her ear. Patient states she was unable to get it out. Patient states is no pain. Patient states she does not know why it broke off. Patient denies any other symptoms or problems at this time. - Related Data Home Medications Medication Instructions Recorded Confirmed ARIPiprazole [Abilify] 15 mg PO DAILY 09/07/13 10/28/17 DULoxetine HCL [Cymbalta] 30 mg PO DAILY 10/16/14 10/28/17 Previous Rx's Medication Instructions Recorded levETIRAcetam [Keppra] 500 mg PO Q12HR #60 tab 04/19/17 Allergies Allergy/AdvReac Type Severity Reaction Status Date / Time aspirin Allergy Swelling Verified 10/28/17 10:17 Review of Systems ROS Statement: Those systems with pertinent positive or pertinent negative responses have been documented in the HPI. ROS Other: All systems not noted in ROS Statement are negative. Past Medical History Past Medical History: Seizure Disorder Additional Past Medical History / Comment(s): no meds for seziures anymore History of Any Multi-Drug Resistant Organisms: MRSA Date of last positivie culture/infection: 2015 MDRO Source:: axilla Past Surgical History: Section Past Anesthesia/Blood Transfusion Reactions: No Reported Reaction Past Psychological History: ADD/ADHD, Anxiety, Bipolar, Depression Smoking Status: Never smoker Past Alcohol Use History: None Reported Past Drug Use History: Methamphetamine General Exam - General Exam Comments Initial Comments: GENERAL Patient is well-developed and well-nourished. Patient is in mild distress. EYES Patient's pupils are equal and round. Extraocular motion is intact ENT Patient has a cotton swab in her ear out of reach of her fingers. SKIN Unremarkable NEURO The patient is alert and oriented 3 PYSCH Patient has normal interpersonal interactions. Limitations: no limitations Course Vital Signs 10/28/17 10:02 Temperature 99 F Pulse Rate 93 Respiratory 18 Rate Blood Pressure 92/58 O2 Sat by Pulse 100 Oximetry Medical Decision Making - Medical Decision Making I used a pair of alligator forceps to remove the cotton swab I did this without any trauma. Disposition Clinical Impression: Foreign body in ear Disposition: HOME SELF-CARE Condition: Good Instructions: Ear Foreign Body (ED) Is patient prescribed a controlled substance at d/c from ED?: No Referrals: Ruslan Almeida MD [Primary Care Provider] - 1-2 days Time of Disposition: 10:24
== END 2017-10-28 10:29 | disposition home or self-care (01) ==
LOC: EC 09:52
DX: T16.1XXA Foreign body in right ear, initial encounter (principal); F41.9 Anxiety disorder, unspecified; F32.9 Major depressive disorder, single episode, unspecified; F90.9 Attention-deficit hyperactivity disorder, unspecified type; Z86.14 Personal history of Methicillin resistant Staphylococcus aureus infection; Z79.899 Other long term (current) drug therapy; Z88.6 Allergy status to analgesic agent
CPT/HCPCS: 69200; 99282

== ENCOUNTER 2018-01-04 13:08 | Emergency (ER) | payer MEDICARE, OTHER ==
[2018-01-04 13:15] VITALS: BP 95/51; PULSE 83; RESP 18; TEMP 97.9
[2018-01-04] MEDS ORDERED: ACETAMINOPHEN TAB 500 MG TAB PO STA (13:24)
--- NOTE | 2018-01-04 13:42 | ED ---
ENT HPI - General Chief complaint: ENT Stated complaint: Cotton stuck in ear Time Seen by Provider: 01/04/18 13:15 Source: patient, RN notes reviewed Mode of arrival: ambulatory Limitations: no limitations - History of Present Illness Initial comments: This is a pleasant 42-year-old female presents emergency [facility] complaining of foreign body to her right ear. Patient states that she had the end of a Q-tip come off within the ear. Patient states happened about 20 minutes ago. Patient denies any other cytology. Patient states she does have a little body soreness due to a seizure that she had last night. Patient has a known seizure disorder and is on Keppra. However she states she missed a few doses. Patient denies any other issues related to this other than general muscle soreness. Patient really did not present with complaint of this but states that she could use a Tylenol for the general soreness. She denies any chest pain or shortness of breath. No problems with vision or hearing. No headache. No paresthesias. No focal neurologic deficits. No chance of . - Related Data Home Medications Medication Instructions Recorded Confirmed ARIPiprazole [Abilify] 15 mg PO DAILY 09/07/13 10/28/17 DULoxetine HCL [Cymbalta] 30 mg PO DAILY 10/16/14 10/28/17 Previous Rx's Medication Instructions Recorded levETIRAcetam [Keppra] 500 mg PO Q12HR #60 tab 04/19/17 Allergies Allergy/AdvReac Type Severity Reaction Status Date / Time aspirin Allergy Swelling Verified 01/04/18 13:12 Review of Systems ROS Statement: Those systems with pertinent positive or pertinent negative responses have been documented in the HPI. ROS Other: All systems not noted in ROS Statement are negative. Past Medical History Past Medical History: Seizure Disorder Additional Past Medical History / Comment(s): no meds for seziures anymore History of Any Multi-Drug Resistant Organisms: MRSA Date of last positivie culture/infection: 2015 MDRO Source:: axilla Past Surgical History: Section Past Anesthesia/Blood Transfusion Reactions: No Reported Reaction Past Psychological History: ADD/ADHD, Anxiety, Bipolar, Depression Smoking Status: Never smoker Past Alcohol Use History: None Reported Past Drug Use History: None Reported General Exam - General Exam Comments Initial Comments: Well-developed, well-nourished 42-year-old female in no acute distress Limitations: no limitations General appearance: alert, in no apparent distress Head exam: Present: atraumatic, normocephalic, normal inspection Eye exam: Present: normal appearance, EOMI Pupils: Present: normal accommodation ENT exam: Present: normal oropharynx, TM's normal bilaterally, other (Patient has a cotton type of foreign body within the right external auditory canal. No evidence of infectious process). Absent: normal external ear exam Neck exam: Present: normal inspection. Absent: tenderness, meningismus, lymphadenopathy Respiratory exam: Present: normal lung sounds bilaterally. Absent: respiratory distress, wheezes, rales, rhonchi, stridor Cardiovascular Exam: Present: regular rate, normal rhythm, normal heart sounds. Absent: systolic murmur, diastolic murmur, rubs, gallop, clicks Extremities exam: Present: normal inspection, full ROM Neurological exam: Present: alert, oriented X3, CN II-XII intact Psychiatric exam: Present: normal affect, normal mood Skin exam: Present: warm, dry, intact Course Vital Signs 01/04/18 13:12 Temperature 97.9 F Pulse Rate 83 Respiratory 18 Rate Blood Pressure 95/51 O2 Sat by Pulse 98 Oximetry Medical Decision Making - Medical Decision Making Patient was counseled on signs and symptoms of external ear infection. Patient counseled on follow-up with her regular physician regarding her known seizure disorder. Patient counseled that she should not miss her seizure medication. Return and follow-up parameters discussed. Case was discussed with the ER attending physician who supervised care. Disposition Clinical Impression: FB ear, Acute foreign body of ear canal, History of seizure, Acute swimmer's ear Disposition: HOME SELF-CARE Condition: Good Instructions: Ear Foreign Body (ED) Additional Instructions: Return to the ER immediately if any problems or difficulties arise or any other symptoms arise. Continue your seizure medication as directed by the regular physician. Call for follow-up appointment with Dr. Almeida within the next few days. Is patient prescribed a controlled substance at d/c from ED?: No Referrals: Ruslan Almeida MD [Primary Care Provider] - 1-2 days
== END 2018-01-04 13:51 | disposition home or self-care (01) ==
LOC: EC 13:08
DX: T16.1XXA Foreign body in right ear, initial encounter (principal); H60.339 Swimmer's ear, unspecified ear; G40.909 Epilepsy, unspecified, not intractable, without status epilepticus; F31.9 Bipolar disorder, unspecified; F41.9 Anxiety disorder, unspecified; Z88.6 Allergy status to analgesic agent; Z79.899 Other long term (current) drug therapy
CPT/HCPCS: 99282

== ENCOUNTER → 2018-07-03 | Outpatient (CLI) | payer MEDICARE, OTHER ==
--- NOTE | 2018-07-03 14:52 | US ---
EXAMINATION TYPE: US pelvis complete transvag DATE OF EXAM: 07/03/2018 COMPARISON: Pelvic ultrasound September 28, 2017 CLINICAL HISTORY: N93.0 VAGINAL BLEEDING. Patient states having no period for 13 years-- last 9 month s she has been spotting. Hx of . TECHNIQUE: Transvaginal (TV) and Transabdominal (TA) . Transabdominal sonographic images of the pel vis were acquired. Transvaginal sonographic images were medically necessary to better assess the fol lowing anatomy: Ovaries Date of LMP: Unknown, EXAM MEASUREMENTS: Uterus: 6.6 x 4.5 x 3.0 cm Endometrial Stripe: 0.3 cm Right Ovary: 2.1 x 1.2 x 1.3 cm Left Ovary: 2.5 x 1.5 x 1.5 cm 1. Uterus: Anteverted Heterogenous. Left hypoechoic nonvascular lesion seen in fundal region - 1. 4 x 1.4 x 1.2 cm 2. Endometrium: Fluid seen in endometrial canal at fundal region 3. Right Ovary: follicles seen 4. Left Ovary: follicles seen 5. Bilateral Adnexa: wnl 6. Posterior cul-de-sac: no free fluid Markedly heterogeneous anteverted uterus is redemonstrated. Suspect left fundal subserosal 1.2 cm fib roid on image 20 with round slightly more hypoechoic area identified. No suspicious thickening of end ometrial stripe. Trace fluid in endometrial canal. No free fluid in pelvic cul-de-sac. Both ovaries are seen with peripheral follicles. No suspicious extraovarian adnexal masses are presen t. IMPRESSION: No suspicious new finding seen to account for patient's symptoms of spotting. Small fibro id redemonstrated.
== END ==
LOC: RADUSWWP 13:38
PROVIDERS: ATTEND Family Medicine
DX: N93.0 Postcoital and contact bleeding (principal)
CPT/HCPCS: 76830; 76856

== ENCOUNTER 2018-08-30 18:47 | Emergency (ER) | payer MEDICARE, OTHER ==
[2018-08-30 18:55] VITALS: PULSE 85
[2018-08-30] MEDS ORDERED: SODIUM CHLORIDE 0.9% 1,000 ML IV STA (19:06)
[2018-08-30 19:29] LABS: Basophils # (A) 0.1 k/uL (0-0.2); Basophils % (A) 1 %; Eosinophils # (A) 0.3 k/uL (0-0.7); Eosinophils % (A) 2 %; HCT 44.9 % (34.0-46.0); HGB 14.2 gm/dL (11.4-16.0); Lymphocytes # (A) 1.7 k/uL (1.0-4.8); Lymphocytes % (A) 12 %; MCH 29.1 pg (25.0-35.0); MCHC 31.6 g/dL (31.0-37.0); MCV 91.9 fL (80.0-100.0); Mean Platelet Volume 6.6; Monocytes # (A) 0.4 k/uL (0-1.0); Monocytes % (A) 3 %; Neutrophils # (A) 11.4 k/uL (1.3-7.7); Neutrophils % (A) 82 %; Platelet Count 318 k/uL (150-450); RBC 4.88 m/uL (3.80-5.40); RDW 12.6 % (11.5-15.5)
--- NOTE | 2018-08-30 19:36 | XR ---
EXAMINATION TYPE: XR chest 2V DATE OF EXAM: 08/30/2018 COMPARISON: 04/19/2017 HISTORY: 42-year-old female with chest pain, cough and congestion TECHNIQUE: PA and lateral views FINDINGS: The heart is normal size. Aorta and pulmonary vasculature within normal limits. Mild hyperinflation l ikely secondary to depth of inspiration. Nodular density right base. No consolidation or pleural effu franc. IMPRESSION: No acute cardiopulmonary process. Nodular density at the right base, suspect nipple shadow. Short int erval follow-up recommended in 4-6 weeks utilizing nipple markers.
[2018-08-30 19:48] LABS: D-Dimer 0.44 mg/L FEU (<0.60); INR 0.9 (<1.2); Partial Thromboplastin Time 24.7 sec (22.0-30.0)
[2018-08-30 19:58] LABS: ALT 16 U/L (9-52); AST 21 U/L (14-36); Albumin 4.4 g/dL (3.5-5.0); Alkaline Phosphatase 59 U/L (38-126); Anion Gap 10 mmol/L; Blood Urea Nitrogen 9 mg/dL (7-17); Calcium 10.3 mg/dL (8.4-10.2); Carbon Dioxide 29 mmol/L (22-30); Chloride 103 mmol/L (98-107); Glucose 85 mg/dL (74-99); Magnesium 2.1 mg/dL (1.6-2.3); Potassium 4.1 mmol/L (3.5-5.1); Sodium 142 mmol/L (137-145); Total Bilirubin 0.6 mg/dL (0.2-1.3); Total Protein 7.3 g/dL (6.3-8.2)
--- NOTE | 2018-08-30 21:44 | ED ---
General Adult HPI - General Source: patient, RN notes reviewed, old records reviewed Mode of arrival: ambulatory Limitations: no limitations <Michele Swanson - Last Filed: 08/31/18 04:29> <Rena Alarcon - Last Filed: 09/01/18 06:16> - General Chief complaint: Upper Respiratory Infection Stated complaint: cough/chest pain Time Seen by Provider: 08/30/18 19:02 - History of Present Illness Initial comments: 42-year-old female patient with past medical history of seizure disorder presents to ED with cough for 2 weeks. Patient was this a dry cough. Patient was that she has had some mild shortness of breath only while coughing. A short that she has had some mild chest pain while coughing the last 2 days. Patient denies any other complaints at this time. Systemic: Pt denies fatigue, myalgia, fever/chills, rash. Pt denies weakness, night sweats, weight loss. Neuro: Pt denies headache, visual disturbances, syncope or pre-syncope. HEENT: Pt denies ocular discharge or irritation, otalgia, rhinorrhea, pharyngitis or notable lymphadenopathy. Cardiopulmonary: Pt denies heart palpitations, dyspnea on exertion. Abdominal/GI: Pt denies abdominal pain, n/v/d. : Pt denies dysuria, burning w/ urination, frequency/urgency. Denies new onset urinary or bowel incontinence. MSK: Pt denies myalgia, loss of strength or function in extremities. Neuro: Pt denies new onset weakness, paresthesias. (Michele Swanson) - Related Data Home Medications Medication Instructions Recorded Confirmed ARIPiprazole [Abilify] 15 mg PO DAILY 09/07/13 10/28/17 DULoxetine HCL [Cymbalta] 30 mg PO DAILY 10/16/14 10/28/17 Previous Rx's Medication Instructions Recorded levETIRAcetam [Keppra] 500 mg PO Q12HR #60 tab 04/19/17 Ibuprofen [Motrin] 600 mg PO Q6HR PRN #40 day 08/30/18 predniSONE 50 mg PO DAILY #5 tab 08/30/18 Allergies Allergy/AdvReac Type Severity Reaction Status Date / Time aspirin Allergy Swelling Verified 01/04/18 13:12 Review of Systems ROS Other: All systems not noted in ROS Statement are negative. <Michele Swanson - Last Filed: 08/31/18 04:29> ROS Other: All systems not noted in ROS Statement are negative. <Rena Alarcon - Last Filed: 09/01/18 06:16> ROS Statement: Those systems with pertinent positive or pertinent negative responses have been documented in the HPI. Past Medical History Past Medical History: Seizure Disorder Additional Past Medical History / Comment(s): no meds for seziures anymore History of Any Multi-Drug Resistant Organisms: MRSA Date of last positivie culture/infection: 2016 MDRO Source:: axilla Past Surgical History: Section Past Anesthesia/Blood Transfusion Reactions: No Reported Reaction Past Psychological History: ADD/ADHD, Anxiety, Bipolar, Depression Smoking Status: Never smoker Past Alcohol Use History: None Reported Past Drug Use History: None Reported <Michele Swanson - Last Filed: 08/31/18 04:29> General Exam Limitations: no limitations <Michele Swanson - Last Filed: 08/31/18 04:29> - General Exam Comments Initial Comments: Constitutional: NAD, AOX3, Pt has pleasant affect. HEENT: NC/AT, trachea midline, neck supple, no lymphadenopathy. Posterior pharynx non erythematous, without exudates. External ears appear normal, without discharge. Mucous membranes moist. Eyes PERRLA, EOM intact. There is no scleral icterus. No pallor noted. Cardiopulmonary: RRR, no murmurs, rubs or gallops, no JVD noted. Lungs CTAB in anterior and posterior marrero. No peripheral edema. Abdominal exam: Abdomen soft and non-distended. Abdomen non-tender to palpation in all 4 quadrants. Bowel sounds active in LLQ. No hepatosplenomegaly. No ecchymosis Neuro: CN II-XII grossly intact. No nuchal rigidity. MSK: No posterior calf tenderness bilaterally, homans sign negative bilaterally. Posterior tibialis and radial pulse +2 bilaterally. Sensation intact in upper and lower extremities. Full active ROM in upper and lower extremities, 5/5 stregnth. (Michele Swanson) Course Vital Signs 08/30/18 08/30/18 18:52 21:57 Temperature 98.0 F 99.2 F Pulse Rate 85 85 Respiratory 18 16 Rate Blood Pressure 127/70 115/63 O2 Sat by Pulse 99 100 Oximetry Medical Decision Making - Lab Data Result diagrams: 08/30/18 19:18 08/30/18 19:18 <Michele Swanson - Last Filed: 08/31/18 04:29> - Lab Data Result diagrams: 08/30/18 19:18 08/30/18 19:18 <Rena Alarcon - Last Filed: 09/01/18 06:16> - Medical Decision Making 42-year-old female patient with past medical history of seizure disorder presents to ED with cough for 2 weeks. Patient was this a dry cough. Patient was that she has had some mild shortness of breath only while coughing. A short that she has had some mild chest pain while coughing the last 2 days. Patient denies any other complaints at this time. Pt VSS, afebrile. Physical exam did not display acute pathology. O2 investigations revealed mild leukocytosis of 14.0. Likely reactive. Correlation studies in the normal limits. D-dimer negative. Troponin negative. BMP within normal limits. EKG not concerning for acute ischemia. No significant change from prior EKG. Chest x-ray revealed no acute cardiopulmonary process. Nodular density at the right base likely nipple shadow. Patient will have follow-up in 4-6 weeks. Patient likely has viral syndrome and pleurisy. Patient will be discharged to follow-up with primary care provider tomorrow. Patient return to ER if condition worsens. Case discussed with Dr. Alarcon. (Michele Swanson) I was available for consultation in the emergency department. The history and physical exam were done by the midlevel provider. I was consulted for this patient's care. I reviewed the case with the midlevel provider and based on their presentation of the patient, I agree with the assessment, medical decision making and plan of care as documented. Chart was dictated using [employer] dictation software. Attempts were made to correct any dictation errors however some typographical errors may persist. (Rena Alarcon) - Lab Data Lab Results 08/30/18 08/30/18 08/30/18 Range/Units 19:18 19:18 19:18 WBC 14.0 H (3.8-10.6) k/uL RBC 4.88 (3.80-5.40) m/uL Hgb 14.2 (11.4-16.0) gm/dL Hct 44.9 (34.0-46.0) % MCV 91.9 (80.0-100.0) fL MCH 29.1 (25.0-35.0) pg MCHC 31.6 (31.0-37.0) g/dL RDW 12.6 (11.5-15.5) % Plt Count 318 (150-450) k/uL Neutrophils % 82 % Lymphocytes % 12 % Monocytes % 3 % Eosinophils % 2 % Basophils % 1 % Neutrophils # 11.4 H (1.3-7.7) k/uL Lymphocytes # 1.7 (1.0-4.8) k/uL Monocytes # 0.4 (0-1.0) k/uL Eosinophils # 0.3 (0-0.7) k/uL Basophils # 0.1 (0-0.2) k/uL PT 10.0 (9.0-12.0) sec INR 0.9 (<1.2) APTT 24.7 (22.0-30.0) sec D-Dimer 0.44 (<0.60) mg/L FEU Sodium 142 (137-145) mmol/L Potassium 4.1 (3.5-5.1) mmol/L Chloride 103 (98-107) mmol/L Carbon Dioxide 29 (22-30) mmol/L Anion Gap 10 mmol/L BUN 9 (7-17) mg/dL Creatinine 0.63 (0.52-1.04) mg/dL Est GFR (CKD-EPI)AfAm >90 (>60 ml/min/1.73 sqM) Est GFR (CKD-EPI)NonAf >90 (>60 ml/min/1.73 sqM) Glucose 85 (74-99) mg/dL Calcium 10.3 H (8.4-10.2) mg/dL Magnesium 2.1 (1.6-2.3) mg/dL Total Bilirubin 0.6 (0.2-1.3) mg/dL AST 21 (14-36) U/L ALT 16 (9-52) U/L Alkaline Phosphatase 59 (38-126) U/L Troponin I (0.000-0.034) ng/mL NT-Pro-B Natriuret Pep pg/mL Total Protein 7.3 (6.3-8.2) g/dL Albumin 4.4 (3.5-5.0) g/dL 08/30/18 08/30/18 Range/Units 19:18 19:18 WBC (3.8-10.6) k/uL RBC (3.80-5.40) m/uL Hgb (11.4-16.0) gm/dL Hct (34.0-46.0) % MCV (80.0-100.0) fL MCH (25.0-35.0) pg MCHC (31.0-37.0) g/dL RDW (11.5-15.5) % Plt Count (150-450) k/uL Neutrophils % % Lymphocytes % % Monocytes % % Eosinophils % % Basophils % % Neutrophils # (1.3-7.7) k/uL Lymphocytes # (1.0-4.8) k/uL Monocytes # (0-1.0) k/uL Eosinophils # (0-0.7) k/uL Basophils # (0-0.2) k/uL PT (9.0-12.0) sec INR (<1.2) APTT (22.0-30.0) sec D-Dimer (<0.60) mg/L FEU Sodium (137-145) mmol/L Potassium (3.5-5.1) mmol/L Chloride (98-107) mmol/L Carbon Dioxide (22-30) mmol/L Anion Gap mmol/L BUN (7-17) mg/dL Creatinine (0.52-1.04) mg/dL Est GFR (CKD-EPI)AfAm (>60 ml/min/1.73 sqM) Est GFR (CKD-EPI)NonAf (>60 ml/min/1.73 sqM) Glucose (74-99) mg/dL Calcium (8.4-10.2) mg/dL Magnesium (1.6-2.3) mg/dL Total Bilirubin (0.2-1.3) mg/dL AST (14-36) U/L ALT (9-52) U/L Alkaline Phosphatase (38-126) U/L Troponin I <0.012 (0.000-0.034) ng/mL NT-Pro-B Natriuret Pep 56 pg/mL Total Protein (6.3-8.2) g/dL Albumin (3.5-5.0) g/dL Disposition Is patient prescribed a controlled substance at d/c from ED?: No <Michele Swanson - Last Filed: 08/31/18 04:29> <Rena Alarcon - Last Filed: 09/01/18 06:16> Clinical Impression: Cough, Bronchitis Disposition: HOME SELF-CARE Condition: Stable Instructions (If sedation given, give patient instructions): Acute Bronchitis (ED), Viral Syndrome (ED) Additional Instructions: Patient to adhere to previously discussed treatment plan and will take medication(s) as directed. Patient to follow up with PCP in 1-2 days. Patient to return to ED if symptoms do not improve. Please take medication as directed. Please use nonsteroidal anti-inflammatories as needed for pain. Please follow-up with primary care provider in 1-2 days. Return to ER if condition worsens. Prescriptions: Ibuprofen [Motrin] 600 mg PO Q6HR PRN #40 day PRN Reason: Pain predniSONE 50 mg PO DAILY #5 tab Referrals: Ruslan Almeida MD [Primary Care Provider] - 1-2 days
[2018-08-30 22:00] VITALS: BP 115/63; RESP 16; TEMP 99.2
== END 2018-08-30 21:57 | disposition home or self-care (01) ==
LOC: EC 18:47
DX: J40 Bronchitis, not specified as acute or chronic (principal); D72.829 Elevated white blood cell count, unspecified; F41.9 Anxiety disorder, unspecified; F32.9 Major depressive disorder, single episode, unspecified; Z86.14 Personal history of Methicillin resistant Staphylococcus aureus infection; Z79.899 Other long term (current) drug therapy; Z88.6 Allergy status to analgesic agent
CPT/HCPCS: 36415; 71046; 80053; 83735; 83880; 84484; 85025; 85379; 85610; 85730; 93005; 96360; 99285

== ENCOUNTER 2018-10-25 15:14 | Emergency (ER) | payer MEDICARE, OTHER ==
[2018-10-25 15:20] VITALS: RESP 16
[2018-10-25] MEDS ORDERED: SODIUM CHLORIDE 0.9% 1,000 ML IV ONE (15:35)
--- NOTE | 2018-10-25 15:39 | ED ---
General Adult HPI - General Chief complaint: Seizure Stated complaint: Seizure Time Seen by Provider: 10/25/18 15:15 Source: patient, RN notes reviewed Mode of arrival: EMS Limitations: no limitations - History of Present Illness Initial comments: This is a 42-year-old female with past medical history significant for daily crack cocaine use. Patient also has a history of seizures. Patient states she's had seizures for 14 years. Patient states she thinks she may have had 3 seizures in the last 12 hours however the first seizure she never became un conscious she states she was awake the whole time and it did occur after she used cocaine. Patient states once the shakiness stopped she used crack cocaine again. Patient states the neck seizure she was lying in bed and she might have fallen asleep she doesn't really know she woke up a little confused. Patient states the last seizure she had a little shaking episode but again was never unresponsive. Patient denies any recent fever chills or cough per patient denies any recent sickness per patient denies any chest pain palpitations difficulty breathing first breath per patient denies any abdominal pain patient denies nausea vomiting diarrhea. Patient states she took 3 extra doses of Kepp ra 1 dose each after each seizure - Related Data Home Medications Medication Instructions Recorded Confirmed ARIPiprazole [Abilify] 15 mg PO DAILY 09/07/13 10/25/18 DULoxetine HCL [Cymbalta] 30 mg PO DAILY 10/16/14 10/25/18 ARIPiprazole [Abilify] 10 mg PO DAILY 10/25/18 10/25/18 levETIRAcetam [Keppra] 500 mg PO Q12H 10/25/18 10/25/18 Previous Rx's Medication Instructions Recorded Sulfamethox-Tmp 800-160Mg [Bactrim 1 each PO Q12HR #14 tab 10/25/18 DS 800-160 mg] Allergies Allergy/AdvReac Type Severity Reaction Status Date / Time aspirin Allergy Swelling Verified 10/25/18 16:09 Review of Systems ROS Statement: Those systems with pertinent positive or pertinent negative responses have been documented in the HPI. ROS Other: All systems not noted in ROS Statement are negative. Past Medical History Past Medical History: Seizure Disorder Additional Past Medical History / Comment(s): no meds for seziures anymore History of Any Multi-Drug Resistant Organisms: MRSA Date of last positivie culture/infection: 2015 MDRO Source:: axilla Past Surgical History: Section Past Anesthesia/Blood Transfusion Reactions: No Reported Reaction Past Psychological History: ADD/ADHD, Anxiety, Bipolar, Depression Smoking Status: Never smoker Past Alcohol Use History: None Reported Past Drug Use History: None Reported General Exam - General Exam Comments Initial Comments: GENERAL: Patient is well-developed and well-nourished. Patient is nontoxic and well- hydrated and is in no acute distress. ENT: Neck is soft and supple. No significant lymphadenopathy is noted. Oropharynx is clear. Moist mucous membranes. Neck has full range of motion without el iciting any pain. EYES: The sclera were anicteric and conjunctiva were pink and moist. Extraocular movements were intact and pupils were equal round and reactive to light. Eyelids were unremarkable. PULMONARY: Unlabored respirations. Good breath sounds bilaterally. No audible rales rhonchi or wheezing was noted. CARDIOVASCULAR: There is a regular rate and rhythm without any murmurs gallops or rubs. ABDOMEN: Soft and nontender with normal bowel sounds. SKIN: Skin is clear with no lesions or rashes and otherwise unremarkable. NEUROLOGIC: Patient is alert and oriented x3. Cranial nerves II through XII are grossly intact. Motor and sensory are also intact. Normal speech, volume and content. Symmetrical smile. MUSCULOSKELETAL: Normal extremities with adequate strength and full range of motion. LYMPHATICS: No significant lymphadenopathy is noted PSYCHIATRIC: Normal psychiatric evaluation. Limitations: no limitations Course Vital Signs 10/25/18 10/25/18 15:17 16:45 Temperature 98.1 F 97.8 F Pulse Rate 86 70 Respiratory 16 16 Rate Blood Pressure 115/52 127/70 O2 Sat by Pulse 100 98 Oximetry Medical Decision Making - Lab Data Result diagrams: 10/25/18 15:29 10/25/18 15:29 Lab Results 10/25/18 10/25/18 10/25/18 Range/Units 15:29 15:29 15:39 WBC 5.3 (3.8-10.6) k/uL RBC 4.83 (3.80-5.40) m/uL Hgb 14.5 (11.4-16.0) gm/dL Hct 44.3 (34.0-46.0) % MCV 91.9 (80.0-100.0) fL MCH 30.0 (25.0-35.0) pg MCHC 32.7 (31.0-37.0) g/dL RDW 13.1 (11.5-15.5) % Plt Count 262 (150-450) k/uL Neutrophils % 56 % Lymphocytes % 36 % Monocytes % 5 % Eosinophils % 2 % Basophils % 1 % Neutrophils # 3.0 (1.3-7.7) k/uL Lymphocytes # 1.9 (1.0-4.8) k/uL Monocytes # 0.2 (0-1.0) k/uL Eosinophils # 0.1 (0-0.7) k/uL Basophils # 0.0 (0-0.2) k/uL Sodium 142 (137-145) mmol/L Potassium 3.7 (3.5-5.1) mmol/L Chloride 110 H (98-107) mmol/L Carbon Dioxide 22 (22-30) mmol/L Anion Gap 10 mmol/L BUN 9 (7-17) mg/dL Creatinine 0.82 (0.52-1.04) mg/dL Est GFR (CKD-EPI)AfAm >90 (>60 ml/min/1.73 sqM) Est GFR (CKD-EPI)NonAf 90 (>60 ml/min/1.73 sqM) Glucose 167 H (74-99) mg/dL Calcium 9.6 (8.4-10.2) mg/dL Total Bilirubin 0.4 (0.2-1.3) mg/dL AST 15 (14-36) U/L ALT <6 L (9-52) U/L Alkaline Phosphatase 38 (38-126) U/L Total Protein 6.6 (6.3-8.2) g/dL Albumin 4.1 (3.5-5.0) g/dL Urine Color Yellow Urine Appearance Cloudy H (Clear) Urine pH 6.0 (5.0-8.0) Ur Specific [place] 1.026 (1.001-1.035) Urine Protein Trace H (Negative) Urine Glucose (UA) Negative (Negative) Urine Ketones Trace H (Negative) Urine Blood Trace H (Negative) Urine Nitrite Positive H (Negative) Urine Bilirubin Negative (Negative) Urine Urobilinogen 3.0 (<2.0) mg/dL Ur Leukocyte Esterase Moderate H (Negative) Urine RBC 3 (0-5) /hpf Urine WBC 32 H (0-5) /hpf Ur Squamous Epith Cells 7 H (0-4) /hpf Urine Bacteria Many H (None) /hpf Urine Mucus Many H (None) /hpf Urine Opiates Screen Detected H (NotDetected) Ur Oxycodone Screen Not Detected (NotDetected) Urine Methadone Screen Not Detected (NotDetected) Ur Propoxyphene Screen Not Detected (NotDetected) Ur Barbiturates Screen Not Detected (NotDetected) U Tricyclic Antidepress Not Detected (NotDetected) Ur Phencyclidine Scrn Not Detected (NotDetected) Ur Amphetamines Screen Not Detected (NotDetected) U Methamphetamines Scrn Not Detected (NotDetected) U Benzodiazepines Scrn Not Detected (NotDetected) Urine Cocaine Screen Detected H (NotDetected) U Marijuana (THC) Screen Not Detected (NotDetected) Disposition Clinical Impression: Urinary tract infection, Seizure, Cocaine abuse Disposition: HOME SELF-CARE Condition: Good Instructions (If sedation given, give patient instructions): Cocaine Abuse (ED), Recurrent Seizures in Adults (ED) Prescriptions: Sulfamethox-Tmp 800-160Mg [Bactrim DS 800-160 mg] 1 each PO Q12HR #14 tab Is patient prescribed a controlled substance at d/c from ED?: No Referrals: Ruslan Almeida MD [Primary Care Provider] - 1-2 days Time of Disposition: 16:12
[2018-10-25 15:46] LABS: Basophils % (A) 1 %; Eosinophils # (A) 0.1 k/uL (0-0.7); Eosinophils % (A) 2 %; HCT 44.3 % (34.0-46.0); HGB 14.5 gm/dL (11.4-16.0); Lymphocytes # (A) 1.9 k/uL (1.0-4.8); Lymphocytes % (A) 36 %; MCHC 32.7 g/dL (31.0-37.0); MCV 91.9 fL (80.0-100.0); Monocytes # (A) 0.2 k/uL (0-1.0); Monocytes % (A) 5 %; Neutrophils % (A) 56 %; Platelet Count 262 k/uL (150-450); RBC 4.83 m/uL (3.80-5.40); RDW 13.1 % (11.5-15.5); WBC 5.3 k/uL (3.8-10.6)
[2018-10-25 16:04] LABS: Appearance,Urine Cloudy (Clear); Bacteria,Urine Many /hpf; Bilirubin,Urine Negative (Negative); Blood,Urine Trace (Negative); Color,Urine Yellow; Glucose,Urine (UA) Negative (Negative); Ketones,Urine Trace (Negative); Leukocyte Esterase,Urine Moderate (Negative); Mucus,Urine Many /hpf; Nitrite,Urine Positive (Negative); Protein,Urine Trace (Negative); RBC,Urine 3 /hpf (0-5); Specific Gravity,Urine 1.026 (1.001-1.035); Squamous Epithelial Cell,Urine 7 /hpf (0-4); WBC,Urine 32 /hpf (0-5)
[2018-10-25] MEDS ORDERED: cefTRIAXone IN SWFI 1,000 MG/10 ML SYRINGE IVP STA (16:06)
[2018-10-25 16:07] LABS: ALT <6 U/L (9-52); AST 15 U/L (14-36); African American GFR (CKD) >90 (>60 ml/min/1.73 sqM); Albumin 4.1 g/dL (3.5-5.0); Alkaline Phosphatase 38 U/L (38-126); Anion Gap 10 mmol/L; Blood Urea Nitrogen 9 mg/dL (7-17); Calcium 9.6 mg/dL (8.4-10.2); Carbon Dioxide 22 mmol/L (22-30); Chloride 110 mmol/L (98-107); Glucose 167 mg/dL (74-99); Potassium 3.7 mmol/L (3.5-5.1); Sodium 142 mmol/L (137-145); Total Bilirubin 0.4 mg/dL (0.2-1.3); Total Protein 6.6 g/dL (6.3-8.2)
[2018-10-25 16:09] LABS: Amphetamine Screen,Urine Not Detected (NotDetected); Barbiturate Screen,Urine Not Detected (NotDetected); Benzodiazepines Screen,Urine Not Detected (NotDetected); Cocaine Screen,Urine Detected (NotDetected); Methadone Screen, Urine Not Detected (NotDetected); Opiate Screen,Urine Detected (NotDetected); Oxycodone Screen, Urine Not Detected (NotDetected); Phencyclidine Screen,Urine Not Detected (NotDetected); Tricyclic Antidepressant,Urine Not Detected (NotDetected); Urn Cannabinoid Scrn Not Detected (NotDetected)
[2018-10-25 16:47] VITALS: BP 127/70; PULSE 70; TEMP 97.8
== END 2018-10-25 16:45 | disposition home or self-care (01) ==
LOC: EC 15:14
DX: N39.0 Urinary tract infection, site not specified (principal); G40.909 Epilepsy, unspecified, not intractable, without status epilepticus; F14.10 Cocaine abuse, uncomplicated; F31.9 Bipolar disorder, unspecified; F90.9 Attention-deficit hyperactivity disorder, unspecified type; F41.9 Anxiety disorder, unspecified; Z86.14 Personal history of Methicillin resistant Staphylococcus aureus infection; Z79.899 Other long term (current) drug therapy; Z88.6 Allergy status to analgesic agent
CPT/HCPCS: 99284 ×2; 96374 ×2; 96361 ×2; 36415; 80053; 80177; 85025; 81001; 80306; J0696

== ENCOUNTER 2018-11-14 17:50 | Emergency (ER) | payer MEDICARE, OTHER ==
[2018-11-14 18:29] VITALS: BP 106/68; PULSE 80; RESP 18; TEMP 98.5
--- NOTE | 2018-11-14 19:05 | XR ---
PROCEDURE: XR wrist complete LT - 3V DATE AND TIME: 11/14/2018 6:39 PM CLINICAL INDICATION: PHH; Pain TECHNIQUE: Department protocol COMPARISON: None FINDINGS: There is no fracture or malalignment. The soft tissues are unremarkable. IMPRESSION: NO ACUTE PROCESS.
--- NOTE | 2018-11-14 19:33 | ED ---
General Adult HPI - General Chief complaint: Extremity Injury, Upper Stated complaint: Wrist injury Time Seen by Provider: 11/14/18 18:01 Source: patient Mode of arrival: ambulatory Limitations: no limitations - History of Present Illness Initial comments: Patient is a 42-year-old female presenting to emergency Department with right wrist pain. Patient reports falling on outstretched hand approximately one week ago and the pain has not resolved since. Patient reports pain with wrist flexion and extension that is alleviated at rest. Patient also reports limited range of motion due to pain. Patient denies any numbness or tingling. Patient denies taking medication to alleviate the symptoms. Patient denies any erythema or edema or skin discoloration. - Related Data Home Medications Medication Instructions Recorded Confirmed ARIPiprazole [Abilify] 15 mg PO DAILY 09/07/13 10/25/18 DULoxetine HCL [Cymbalta] 30 mg PO DAILY 10/16/14 10/25/18 ARIPiprazole [Abilify] 10 mg PO DAILY 10/25/18 10/25/18 levETIRAcetam [Keppra] 500 mg PO Q12H 10/25/18 10/25/18 Previous Rx's Medication Instructions Recorded Sulfamethox-Tmp 800-160Mg [Bactrim 1 each PO Q12HR #14 tab 10/25/18 DS 800-160 mg] Allergies Allergy/AdvReac Type Severity Reaction Status Date / Time aspirin Allergy Swelling Verified 10/25/18 16:09 Review of Systems ROS Statement: Those systems with pertinent positive or pertinent negative responses have been documented in the HPI. ROS Other: All systems not noted in ROS Statement are negative. Past Medical History Past Medical History: Seizure Disorder Additional Past Medical History / Comment(s): no meds for seziures anymore History of Any Multi-Drug Resistant Organisms: MRSA Date of last positivie culture/infection: 2015 MDRO Source:: axilla Past Surgical History: Section Past Anesthesia/Blood Transfusion Reactions: No Reported Reaction Past Psychological History: ADD/ADHD, Anxiety, Bipolar, Depression Smoking Status: Never smoker Past Alcohol Use History: None Reported Past Drug Use History: None Reported General Exam - General Exam Comments Initial Comments: General: Well-developed well-nourished distress HEENT: Normocephalic/atraumatic, PERLL, pharynx erythema, swallowing well, EAC no erythema, no exudates, TM clear, no cervical lymph nodes Neck: Supple, nontender, trachea midline Chest/Lungs: Normal respirations, no signs of respiratory distress clear to auscultation bilaterally no wheezes, rales, rhonchi Cardiac: Regular rate and rhythm, normal S1-S2, no murmurs rubs or gallops Abdomen/GI: Soft nontender, bowel sounds equal or quadrant x4, no guarding, no rebound no CVA tenderness Musculoskeletal: Tenderness along the right wrist, limited range of motion due to pain. Tenderness with flexion and extension, no edema or erythema or skin discoloration Skin: Warmth, no rashes or lesions, no cyanosis or diaphoresis Neurologic: AAO x 3, CN 2-12 intact, Psychiatric: Mood and affect normal, judgment normal Limitations: no limitations Course Vital Signs 11/14/18 18:25 Temperature 98.5 F Pulse Rate 80 Respiratory 18 Rate Blood Pressure 106/68 O2 Sat by Pulse 100 Oximetry Medical Decision Making - Medical Decision Making Patient is a 6-year-old female presenting to emergency Department with right wrist pain. X-ray of the right wrist is unremarkable. When I returned to inform the patient of the x-ray results she had already left the patient room. Patient did not inform anybody that she is going to leave. At this point patient will sign out as AGAINST MEDICAL ADVICE. Case discussed with physician. Disposition Clinical Impression: Wrist sprain Disposition: Left Against Medical Advice Condition: Stable Instructions (If sedation given, give patient instructions): Wrist Sprain (ED) Additional Instructions: Please follow with orthopedics. Please return to emergency department if symptoms worsen. Alternate between Tylenol and ibuprofen for pain control. Apply ice compress to minimize symptoms. Is patient prescribed a controlled substance at d/c from ED?: No Referrals: Ruslan Almeida MD [Primary Care Provider] - 1-2 days Charles Vallejo DO [Doctor of Osteopathic Medicine] - 1-2 days Time of Disposition: 19:33
== END 2018-11-14 19:44 | disposition left against medical advice (07) ==
LOC: EC 17:50
DX: S63.501A Unspecified sprain of right wrist, initial encounter (principal); G40.909 Epilepsy, unspecified, not intractable, without status epilepticus; F41.9 Anxiety disorder, unspecified; F31.9 Bipolar disorder, unspecified; Z88.6 Allergy status to analgesic agent; W19.XXXA Unspecified fall, initial encounter; Y92.009 Unspecified place in unspecified non-institutional (private) residence as the place of occurrence of the external cause
CPT/HCPCS: 99283

== ENCOUNTER 2019-02-10 20:05 | Emergency (ER) | payer MEDICARE, OTHER ==
[2019-02-10] MEDS ORDERED: SODIUM CHLORIDE 0.9% 500 ML 500 ML IV STA (21:17)
[2019-02-10] MEDS ORDERED: levETIRAcetam 500 MG TAB PO STA (21:20)
[2019-02-10] MEDS ORDERED: ACETAMINOPHEN TAB 325 MG TAB PO STA (21:38)
--- NOTE | 2019-02-10 22:03 | ED ---
General Adult HPI - General Chief complaint: Seizure Stated complaint: Seizure Time Seen by Provider: 02/10/19 20:52 Source: patient, RN notes reviewed, old records reviewed Mode of arrival: ambulatory Limitations: no limitations - History of Present Illness Initial comments: 43-year-old female patient past history of seizure disorder presents to the chief complaint of possible breakthrough seizures. Patient reports that the last 2 days she woke up one time each day slightly disoriented. Did not know what she was previously doing. Believing that she may have had a seizure. Was not witnessed by anybody. Patient points that she has not been taking her complications directed. Reports that she takes Keppra 500 mg twice a day however has only been dosing once today because she forgets. Declines any other complaints at this time. Systemic: Pt denies fatigue, fever/chills, rash. Pt denies weakness, night sweats, weight loss. Neuro: Pt denies headache, visual disturbances, syncope or pre-syncope. HEENT: Pt denies ocular discharge or irritation, otalgia, rhinorrhea, pharyngitis or notable lymphadenopathy. Cardiopulmonary: Pt denies chest pain, SOB, heart palpitations, dyspnea on exertion. Abdominal/GI: Pt denies abdominal pain, n/v/d. : Pt denies dysuria, burning w/ urination, frequency/urgency. Denies new onset urinary or bowel incontinence. MSK: Pt denies myalgia, loss of strength or function in extremities. Neuro: Pt denies new onset weakness, paresthesias. - Related Data Home Medications Medication Instructions Recorded Confirmed ARIPiprazole [Abilify] 15 mg PO DAILY 09/07/13 02/10/19 DULoxetine HCL [Cymbalta] 30 mg PO DAILY 10/16/14 02/10/19 ARIPiprazole [Abilify] 10 mg PO DAILY 10/25/18 02/10/19 levETIRAcetam [Keppra] 500 mg PO Q12H 10/25/18 02/10/19 Allergies Allergy/AdvReac Type Severity Reaction Status Date / Time aspirin Allergy Swelling Verified 02/10/19 21:25 Review of Systems ROS Statement: Those systems with pertinent positive or pertinent negative responses have been documented in the HPI. ROS Other: All systems not noted in ROS Statement are negative. Past Medical History Past Medical History: Seizure Disorder Additional Past Medical History / Comment(s): no meds for seziures anymore History of Any Multi-Drug Resistant Organisms: MRSA Date of last positivie culture/infection: 2015 MDRO Source:: axilla Past Surgical History: Section Past Anesthesia/Blood Transfusion Reactions: No Reported Reaction Past Psychological History: ADD/ADHD, Anxiety, Bipolar, Depression Smoking Status: Never smoker Past Alcohol Use History: None Reported Past Drug Use History: None Reported General Exam - General Exam Comments Initial Comments: Constitutional: NAD, AOX3, Pt has pleasant affect. HEENT: NC/AT, trachea midline, neck supple, no lymphadenopathy. Posterior ph arynx non erythematous, without exudates. External ears appear normal, without discharge. Mucous membranes moist. Eyes PERRLA, EOM intact. There is no scleral icterus. No pallor noted. Cardiopulmonary: RRR, no murmurs, rubs or gallops, no JVD noted. Lungs CTAB in anterior and posterior marrero. No peripheral edema. Abdominal exam: Abdomen soft and non-distended. Abdomen non-tender to palpation in all 4 quadrants. Bowel sounds active in LLQ. No hepatosplenomegaly. No ecchymosis Neuro: CN II-XII intact. No nuchal rigidity. No raccon eyes, no jim sign, no hemotympanum. No cervical spinal tenderness. MSK: No posterior calf tenderness bilaterally, homans sign negative bilaterally. Posterior tibialis and radial pulse +2 bilaterally. Sensation intact in upper and lower extremities. Full active ROM in upper and lower extremities, 5/5 stregnth. Limitations: no limitations Course Vital Signs 02/10/19 20:30 Temperature 98.5 F Pulse Rate 79 Respiratory 20 Rate Blood Pressure 102/59 O2 Sat by Pulse 100 Oximetry Medical Decision Making - Medical Decision Making 43-year-old female patient is a chief complaint possible seizure. Patient vital signs stable, afebrile. Physical exam densely acute pathology. Neurologic exam within normal limits. His routine revealed the patient has not been properly dosing her Keppra. Patient was administered a home dose today. Patient be discharged, follow up with primary care provider who manages her seizure medications. Patient also be referred to neurology. Case discussed with Dr. Vasquez. - Lab Data Result diagrams: 02/10/19 21:35 02/10/19 21:35 Lab Results 1002/10/19 02/10/19 Range/Units 21:35 21:35 21:35 WBC 7.4 (3.8-10.6) k/uL RBC 4.64 (3.80-5.40) m/uL Hgb 14.6 (11.4-16.0) gm/dL Hct 43.7 (34.0-46.0) % MCV 94.2 (80.0-100.0) fL MCH 31.5 (25.0-35.0) pg MCHC 33.5 (31.0-37.0) g/dL RDW 12.1 (11.5-15.5) % Plt Count 271 (150-450) k/uL Neutrophils % 62 % Lymphocytes % 31 % Monocytes % 5 % Eosinophils % 1 % Basophils % 1 % Neutrophils # 4.6 (1.3-7.7) k/uL Lymphocytes # 2.3 (1.0-4.8) k/uL Monocytes # 0.3 (0-1.0) k/uL Eosinophils # 0.1 (0-0.7) k/uL Basophils # 0.1 (0-0.2) k/uL Sodium 141 (137-145) mmol/L Potassium 4.0 (3.5-5.1) mmol/L Chloride 107 (98-107) mmol/L Carbon Dioxide 27 (22-30) mmol/L Anion Gap 7 mmol/L BUN 10 (7-17) mg/dL Creatinine 0.83 (0.52-1.04) mg/dL Est GFR (CKD-EPI)AfAm >90 (>60 ml/min/1.73 sqM) Est GFR (CKD-EPI)NonAf 88 (>60 ml/min/1.73 sqM) Glucose 74 (74-99) mg/dL Plasma Lactic Acid Kyle 0.7 (0.7-2.0) mmol/L Calcium 9.8 (8.4-10.2) mg/dL Total Bilirubin 0.5 (0.2-1.3) mg/dL AST 17 (14-36) U/L ALT 14 (9-52) U/L Alkaline Phosphatase 39 (38-126) U/L Total Protein 7.1 (6.3-8.2) g/dL Albumin 4.3 (3.5-5.0) g/dL Disposition Clinical Impression: Seizure disorder Disposition: HOME SELF-CARE Condition: Stable Instructions (If sedation given, give patient instructions): Recurrent Seizures in Adults (ED) Additional Instructions: Patient to adhere to previously discussed treatment plan and will take medication(s) as directed. Patient to follow up with PCP in 1-2 days. Patient to return to ED if symptoms do not improve. No driving for 6 months or until cleared by neurologist. Take Keppra has prescribed. Follow-up with primary care provider and neurologist tomorrow. Return to ER if condition worsens. Is patient prescribed a controlled substance at d/c from ED?: No Referrals: Ruslan Almeida MD [Primary Care Provider] - 1-2 days Xin Shelton MD [STAFF PHYSICIAN] - 1-2 days
[2019-02-10 22:15] LABS: Basophils # (A) 0.1 k/uL (0-0.2); Basophils % (A) 1 %; Eosinophils # (A) 0.1 k/uL (0-0.7); Eosinophils % (A) 1 %; HCT 43.7 % (34.0-46.0); HGB 14.6 gm/dL (11.4-16.0); Lymphocytes # (A) 2.3 k/uL (1.0-4.8); Lymphocytes % (A) 31 %; MCH 31.5 pg (25.0-35.0); MCHC 33.5 g/dL (31.0-37.0); MCV 94.2 fL (80.0-100.0); Mean Platelet Volume 6.2; Monocytes # (A) 0.3 k/uL (0-1.0); Monocytes % (A) 5 %; Neutrophils # (A) 4.6 k/uL (1.3-7.7); Neutrophils % (A) 62 %; Platelet Count 271 k/uL (150-450); RBC 4.64 m/uL (3.80-5.40); RDW 12.1 % (11.5-15.5); WBC 7.4 k/uL (3.8-10.6)
[2019-02-10 22:18] LABS: ALT 14 U/L (9-52); AST 17 U/L (14-36); African American GFR (CKD) >90 (>60 ml/min/1.73 sqM); Albumin 4.3 g/dL (3.5-5.0); Alkaline Phosphatase 39 U/L (38-126); Anion Gap 7 mmol/L; Blood Urea Nitrogen 10 mg/dL (7-17); Calcium 9.8 mg/dL (8.4-10.2); Carbon Dioxide 27 mmol/L (22-30); Chloride 107 mmol/L (98-107); Glucose 74 mg/dL (74-99); Sodium 141 mmol/L (137-145); Total Bilirubin 0.5 mg/dL (0.2-1.3); Total Protein 7.1 g/dL (6.3-8.2)
[2019-02-10 23:03] VITALS: BP 122/65; PULSE 92; RESP 16; TEMP 98.7
--- NOTE | 2019-02-10 23:59 | ED ---
Medical Decision Making - Lab Data Result diagrams: 02/10/19 21:35 02/10/19 21:35 Lab Results 02/10/19 02/10/19 02/10/19 Range/Units 21:35 21:35 21:35 WBC 7.4 (3.8-10.6) k/uL RBC 4.64 (3.80-5.40) m/uL Hgb 14.6 (11.4-16.0) gm/dL Hct 43.7 (34.0-46.0) % MCV 94.2 (80.0-100.0) fL MCH 31.5 (25.0-35.0) pg MCHC 33.5 (31.0-37.0) g/dL RDW 12.1 (11.5-15.5) % Plt Count 271 (150-450) k/uL Neutrophils % 62 % Lymphocytes % 31 % Monocytes % 5 % Eosinophils % 1 % Basophils % 1 % Neutrophils # 4.6 (1.3-7.7) k/uL Lymphocytes # 2.3 (1.0-4.8) k/uL Monocytes # 0.3 (0-1.0) k/uL Eosinophils # 0.1 (0-0.7) k/uL Basophils # 0.1 (0-0.2) k/uL Sodium 141 (137-145) mmol/L Potassium 4.0 (3.5-5.1) mmol/L Chloride 107 (98-107) mmol/L Carbon Dioxide 27 (22-30) mmol/L Anion Gap 7 mmol/L BUN 10 (7-17) mg/dL Creatinine 0.83 (0.52-1.04) mg/dL Est GFR (CKD-EPI)AfAm >90 (>60 ml/min/1.73 sqM) Est GFR (CKD-EPI)NonAf 88 (>60 ml/min/1.73 sqM) Glucose 74 (74-99) mg/dL Plasma Lactic Acid Kyle 0.7 (0.7-2.0) mmol/L Calcium 9.8 (8.4-10.2) mg/dL Total Bilirubin 0.5 (0.2-1.3) mg/dL AST 17 (14-36) U/L ALT 14 (9-52) U/L Alkaline Phosphatase 39 (38-126) U/L Total Protein 7.1 (6.3-8.2) g/dL Albumin 4.3 (3.5-5.0) g/dL - EKG Data -: EKG Interpreted by Me EKG Comments: Films as showing, rhinorrhea axis, early fall, an EKG, no significant change from prior. No concern for acute ischemia. Disposition Clinical Impression: Seizure disorder Disposition: HOME SELF-CARE Condition: Stable Instructions (If sedation given, give patient instructions): Recurrent Seizures in Adults (ED) Additional Instructions: Patient to adhere to previously discussed treatment plan and will take medication(s) as directed. Patient to follow up with PCP in 1-2 days. Patient to return to ED if symptoms do not improve. No driving for 6 months or until cleared by neurologist. Take Keppra has prescribed. Follow-up with primary care provider and neurologist tomorrow. Return to ER if condition worsens. Is patient prescribed a controlled substance at d/c from ED?: No Referrals: Xin Shelton MD [STAFF PHYSICIAN] - 1-2 days Ruslan Almeida MD [Primary Care Provider] - 1-2 days
== END 2019-02-10 23:00 | disposition home or self-care (01) ==
LOC: EC 20:05
DX: G40.909 Epilepsy, unspecified, not intractable, without status epilepticus (principal); F41.9 Anxiety disorder, unspecified; F31.9 Bipolar disorder, unspecified; Z79.899 Other long term (current) drug therapy; Z88.6 Allergy status to analgesic agent; Z86.14 Personal history of Methicillin resistant Staphylococcus aureus infection
CPT/HCPCS: 36415; 80053; 80177; 83605; 85025; 96360; 99284

== ENCOUNTER → 2019-03-17 | Outpatient (CLI) | payer MEDICARE, OTHER ==
--- NOTE | 2019-03-17 18:52 | MR ---
MR brain without contrast HISTORY: Seizures, history head injury Multiplanar multisequence imaging through the brain and correlated to CT brain 10/01/2017 There is no restricted diffusion. There is no hemorrhage or hydrocephalus. Corpus callosum, pituitary , cervical medullary junction, cerebellopontine angles are within normal limits. The orbits are symme tric. There are normal vascular flow voids. Asymmetry of the ventricles is a stable finding. The para nasal sinuses are well aerated. There is some motion on the exam. Some scattered periventricular hype rintensities on inversion recovery T2-weighted sequences within the periventricular matter, approxima tely 3-5 lesions are noted. IMPRESSION: Nonspecific white matter demyelination of questionable clinical significance. No acute br ain abnormality.
== END ==
LOC: RADMRIMAIN 16:22
PROVIDERS: ATTEND Psychiatry & Neurology Neurology
DX: G37.9 Demyelinating disease of central nervous system, unspecified (principal)
CPT/HCPCS: 36415; 70551; 80177

== ENCOUNTER 2019-09-05 15:28 | Emergency (ER) | payer MEDICARE, OTHER ==
[2019-09-05 15:34] VITALS: RESP 18; TEMP 98
[2019-09-05] MEDS ORDERED: LIDOCAINE 1% INJ 10MG/ML (20 ML MDV) SQ ONE (16:10)
--- NOTE | 2019-09-05 17:03 | ED ---
Skin/Abscess/FB HPI - General Chief complaint: Skin/Abscess/Foreign Body Stated complaint: lump on vaginal area Time Seen by Provider: 09/05/19 15:35 Source: patient Mode of arrival: ambulatory Limitations: no limitations - History of Present Illness Initial comments: 43-year-old female presenting today for chief complaint of abscess of labia. Patient states noticed bump approximately began 1-2 days. Patient denies fevers, chills, general malaise or night sweats. Denies concern for STD. Denies vaginal discharge or odors. Patient denies abdominal or pelvic pain. History of MRSA. Patient has no additional complaints. Upon arrival appears well, nontoxic. - Related Data Home Medications Medication Instructions Recorded Confirmed ARIPiprazole [Abilify] 15 mg PO DAILY 09/07/13 02/10/19 DULoxetine HCL [Cymbalta] 30 mg PO DAILY 10/16/14 02/10/19 ARIPiprazole [Abilify] 10 mg PO DAILY 10/25/18 02/10/19 levETIRAcetam [Keppra] 500 mg PO Q12H 10/25/18 02/10/19 Previous Rx's Medication Instructions Recorded Cephalexin [Keflex] 500 mg PO Q6HR 7 Days #28 cap 09/05/19 Sulfamethox-Tmp 800-160Mg [Bactrim 1 tab PO Q12HR 7 Days #14 tab 09/05/19 DS 800-160 mg] Allergies Allergy/AdvReac Type Severity Reaction Status Date / Time aspirin Allergy Swelling Verified 09/05/19 15:34 Review of Systems ROS Statement: Those systems with pertinent positive or pertinent negative responses have been documented in the HPI. ROS Other: All systems not noted in ROS Statement are negative. Past Medical History Past Medical History: Seizure Disorder Additional Past Medical History / Comment(s): no meds for seziures anymore History of Any Multi-Drug Resistant Organisms: MRSA Date of last positivie culture/infection: 2015 MDRO Source:: axilla Past Surgical History: Section Past Anesthesia/Blood Transfusion Reactions: No Reported Reaction Past Psychological History: ADD/ADHD, Anxiety, Bipolar, Depression Smoking Status: Never smoker Past Alcohol Use History: None Reported Past Drug Use History: None Reported General Exam - General Exam Comments Initial Comments: General: The patient is awake and alert, in no distress, and does not appear acutely ill. Eye: Pupils are equal, round and reactive to light, extra-ocular movements are intact. No nystagmus. There is normal conjunctiva bilaterally. No signs of icterus. Gastrointestinal: Soft, non-distended, non-tender abdomen without masses or organomegaly noted. There is no rebound or guarding present. Labia majora lesions, no redness, round tender, fluctuant approximately 2 cm. No spontaneous drainage not palpable or visible from internal aspect Musculoskeletal: Normal ROM, no tenderness. Strength 5/5. Sensation intact. Pulses equal bilaterally 2+. Neurological: A&O x 3. CN II-XII intact grossly, There are no obvious motor or sensory deficits. Coordination appears grossly intact. Speech is normal. Skin: Skin is warm and dry and no rashes or lesions are noted. Psychiatric: Cooperative, appropriate mood & affect, normal judgment. Limitations: no limitations Course Vital Signs 09/05/19 09/05/19 15:31 17:04 Temperature 98 F Pulse Rate 112 H 88 Respiratory 18 18 Rate Blood Pressure 125/82 122/78 O2 Sat by Pulse 98 98 Oximetry Procedures - Incision & Drainage Consent Obtained: verbal consent, written consent Indication: labial abscess Site: vulva/vagina Size (cm): 2 Anesthetic Used: lidocaine 1% Amount (mLs): 1 I&D Cleaning Method: Iodine Sterile Field Used?: No Scalpel Used: #11 Needle Aspiration Performed?: Yes (some purulent drainage) I&D Drainage Obtained: Pus (small amount), Blood (<2cc) Culture Obtained?: No Patient Tolerated Procedure: well, no complications Medical Decision Making - Medical Decision Making Abscess drained. Antibiotics prescribed. Pt does not appear toxic. Pt tolerated procedure well. Return parameters and importance of f/u discussed. Patient discharged appearing well after discussing case wt Dr. Person Disposition Clinical Impression: Abscess Disposition: HOME SELF-CARE Condition: Good Instructions (If sedation given, give patient instructions): Abscess Incision and Drainage (ED) Additional Instructions: Please use medication as discussed. Please follow-up with OBGYN in the next 2-4 days. Please return to emergency room if the symptoms increase or worsen or for any other concerns. Prescriptions: Sulfamethox-Tmp 800-160Mg [Bactrim DS 800-160 mg] 1 tab PO Q12HR 7 Days #14 tab Cephalexin [Keflex] 500 mg PO Q6HR 7 Days #28 cap Is patient prescribed a controlled substance at d/c from ED?: No Referrals: Ruslan Almeida MD [Primary Care Provider] - 1-2 days Time of Disposition: 17:02
[2019-09-05 17:05] VITALS: BP 122/78; PULSE 88
== END 2019-09-05 17:04 | disposition home or self-care (01) ==
LOC: EC 15:28
DX: N76.4 Abscess of vulva (principal); G40.909 Epilepsy, unspecified, not intractable, without status epilepticus; F41.9 Anxiety disorder, unspecified; F32.9 Major depressive disorder, single episode, unspecified; Z86.14 Personal history of Methicillin resistant Staphylococcus aureus infection; Z88.6 Allergy status to analgesic agent; Z79.899 Other long term (current) drug therapy
CPT/HCPCS: 99283; 56405; J2001

== ENCOUNTER 2019-10-17 16:59 | Emergency (ER) | payer MEDICARE, OTHER ==
[2019-10-17] MEDS ORDERED: SODIUM CHLORIDE 0.9% 500 ML 500 ML IV STA (17:26)
[2019-10-17] MEDS ORDERED: SODIUM CHLORIDE 0.9% 1,000 ML IV STA (17:26)
--- NOTE | 2019-10-17 17:29 | ED ---
General Adult HPI - General Chief complaint: Dizziness Stated complaint: Dizzy Time Seen by Provider: 10/17/19 17:19 Source: patient Mode of arrival: ambulatory Limitations: no limitations - History of Present Illness Initial comments: 43-year-old female patient presents to the emergency department today for evaluation of dizziness and hot flashes. Patient states starting early this morning she has been having episodes of dizziness and feeling hot and flushed. Patient states when the feeling comes on she feels woozy, wavy, and her vision goes black. States she does feel like she is going to pass out. She does get sweating when these episodes occur. She denies any chest pain or shortness of breath. Denies any headache, blurred vision, or double vision. Denies any weakness, numbness, tingling to her extremities. Denies nausea, vomiting, c onstipation, or diarrhea. She denies alcohol use. Does admit to using cocaine. Does have a history of seizures, believes her last seizure was 3-4 months ago. Patient denies any recent rash, fever, chills, cough, back pain, numbness, tingling, hematuria, dysuria, urinary urgency, urinary frequency, headache, visual changes, or any other complaints. - Related Data Home Medications Medication Instructions Recorded Confirmed ARIPiprazole [Abilify] 15 mg PO DAILY 09/07/13 02/10/19 DULoxetine HCL [Cymbalta] 30 mg PO DAILY 10/16/14 02/10/19 ARIPiprazole [Abilify] 10 mg PO DAILY 10/25/18 02/10/19 levETIRAcetam [Keppra] 500 mg PO Q12H 10/25/18 02/10/19 Previous Rx's Medication Instructions Recorded Cephalexin [Keflex] 500 mg PO Q6HR 7 Days #28 cap 09/05/19 Sulfamethox-Tmp 800-160Mg [Bactrim 1 tab PO Q12HR 7 Days #14 tab 09/05/19 DS 800-160 mg] Meclizine [Antivert] 25 mg PO TID #15 tab 10/17/19 Allergies Allergy/AdvReac Type Severity Reaction Status Date / Time aspirin Allergy Swelling Verified 10/17/19 17:19 Review of Systems ROS Statement: Those systems with pertinent positive or pertinent negative responses have been documented in the HPI. ROS Other: All systems not noted in ROS Statement are negative. Past Medical History Past Medical History: Seizure Disorder Additional Past Medical History / Comment(s): no meds for seziures anymore History of Any Multi-Drug Resistant Organisms: MRSA Date of last positivie culture/infection: 2015 MDRO Source:: axilla Past Surgical History: Section Past Anesthesia/Blood Transfusion Reactions: No Reported Reaction Past Psychological History: ADD/ADHD, Anxiety, Bipolar, Depression Smoking Status: Never smoker Past Alcohol Use History: None Reported Past Drug Use History: None Reported General Exam Limitations: no limitations General appearance: alert, in no apparent distress, other (This is a well- developed, well-nourished adult female patient in no acute distress. Vital signs upon presentation are temperature 98.1F, pulse 84, respirations 18, blood pressure 111/66, pulse ox 98% on room air.) Eye exam: Present: normal appearance, PERRL, EOMI. Absent: scleral icterus, conjunctival injection, nystagmus, periorbital swelling ENT exam: Present: normal exam, normal oropharynx, mucous membranes moist Respiratory exam: Present: normal lung sounds bilaterally. Absent: respiratory distress, wheezes, rales, rhonchi, stridor Cardiovascular Exam: Present: regular rate, normal rhythm, normal heart sounds. Absent: systolic murmur, diastolic murmur, rubs, gallop, clicks GI/Abdominal exam: Present: soft, normal bowel sounds. Absent: distended, tenderness, guarding, rebound, rigid Neurological exam: Present: alert, oriented X3, CN II-XII intact Psychiatric exam: Present: normal affect, normal mood Skin exam: Present: warm, dry, intact, normal color. Absent: rash Course Vital Signs 10/17/19 10/17/19 17:16 17:37 Temperature 98.1 F Pulse Rate 84 Respiratory 18 Rate Blood Pressure 111/66 Blood Pressure 107/65 [Right Arm Sitting] Blood Pressure 109/72 [Right Arm Standing] Blood Pressure 108/64 [Right Arm Supine] O2 Sat by Pulse 98 Oximetry EKG Findings - EKG Comments: EKG Findings:: EKG obtained at 1749 shows normal sinus rhythm with a ventricular rate of 73, ND interval 116, QRS duration 80, QT 378, QTC 416. No evidence of ST elevation or depression. Medical Decision Making - Medical Decision Making 43-year-old female patient presents to the emergency department today for evaluation of dizziness. Physical examination is unremarkable. She is ne urologically intact with no focal deficits. Labs reviewed and are unremarkable. EKG was obtained and shows no acute abnormalities. We will start meclizine. She'll be discharged follow-up with the primary care physician for recheck in 1- 2 days. Return parameters were discussed in detail. She verbalizes understanding and agrees with this plan. - Lab Data Result diagrams: 10/17/19 18:03 10/17/19 17:41 Lab Results 10/17/19 10/17/19 10/17/19 Range/Units 17:41 17:41 17:41 WBC (3.8-10.6) k/uL RBC (3.80-5.40) m/uL Hgb (11.4-16.0) gm/dL Hct (34.0-46.0) % MCV (80.0-100.0) fL MCH (25.0-35.0) pg MCHC (31.0-37.0) g/dL RDW (11.5-15.5) % Plt Count (150-450) k/uL Neutrophils % % Lymphocytes % % Monocytes % % Eosinophils % % Basophils % % Neutrophils # (1.3-7.7) k/uL Lymphocytes # (1.0-4.8) k/uL Monocytes # (0-1.0) k/uL Eosinophils # (0-0.7) k/uL Basophils # (0-0.2) k/uL Sodium 139 (137-145) mmol/L Potassium 3.5 (3.5-5.1) mmol/L Chloride 108 H (98-107) mmol/L Carbon Dioxide 21 L (22-30) mmol/L Anion Gap 10 mmol/L BUN 12 (7-17) mg/dL Creatinine 0.81 (0.52-1.04) mg/dL Est GFR (CKD-EPI)AfAm >90 (>60 ml/min/1.73 sqM) Est GFR (CKD-EPI)NonAf >90 (>60 ml/min/1.73 sqM) Glucose 90 (74-99) mg/dL Plasma Lactic Acid Kyle 1.4 (0.7-2.0) mmol/L Calcium 9.0 (8.4-10.2) mg/dL Total Bilirubin 0.2 (0.2-1.3) mg/dL AST 41 H (14-36) U/L ALT 9 (4-34) U/L Alkaline Phosphatase 47 (38-126) U/L Troponin I <0.012 (0.000-0.034) ng/mL Total Protein 6.4 (6.3-8.2) g/dL Albumin 3.9 (3.5-5.0) g/dL 10/17/19 Range/Units 18:03 WBC 7.6 (3.8-10.6) k/uL RBC 4.41 (3.80-5.40) m/uL Hgb 13.7 (11.4-16.0) gm/dL Hct 41.8 (34.0-46.0) % MCV 94.7 (80.0-100.0) fL MCH 31.1 (25.0-35.0) pg MCHC 32.8 (31.0-37.0) g/dL RDW 12.8 (11.5-15.5) % Plt Count 248 (150-450) k/uL Neutrophils % 53 % Lymphocytes % 37 % Monocytes % 4 % Eosinophils % 2 % Basophils % 1 % Neutrophils # 4.1 (1.3-7.7) k/uL Lymphocytes # 2.8 (1.0-4.8) k/uL Monocytes # 0.3 (0-1.0) k/uL Eosinophils # 0.2 (0-0.7) k/uL Basophils # 0.1 (0-0.2) k/uL Sodium (137-145) mmol/L Potassium (3.5-5.1) mmol/L Chloride (98-107) mmol/L Carbon Dioxide (22-30) mmol/L Anion Gap mmol/L BUN (7-17) mg/dL Creatinine (0.52-1.04) mg/dL Est GFR (CKD-EPI)AfAm (>60 ml/min/1.73 sqM) Est GFR (CKD-EPI)NonAf (>60 ml/min/1.73 sqM) Glucose (74-99) mg/dL Plasma Lactic Acid Kyle (0.7-2.0) mmol/L Calcium (8.4-10.2) mg/dL Total Bilirubin (0.2-1.3) mg/dL AST (14-36) U/L ALT (4-34) U/L Alkaline Phosphatase (38-126) U/L Troponin I (0.000-0.034) ng/mL Total Protein (6.3-8.2) g/dL Albumin (3.5-5.0) g/dL Disposition Clinical Impression: Dizziness, Cocaine use Disposition: HOME SELF-CARE Condition: Good Instructions (If sedation given, give patient instructions): Dizziness (ED) Additional Instructions: Increase fluids. Rest. Take medications as directed. Follow-up with your primary care physician for recheck in 1-2 days. Return to the emergency department immediately for any new, worsening, or concerning symptoms. Prescriptions: Meclizine [Antivert] 25 mg PO TID #15 tab Is patient prescribed a controlled substance at d/c from ED?: No Referrals: Ruslan Almeida MD [Primary Care Provider] - 1-2 days Time of Disposition: 18:54
[2019-10-17 18:11] LABS: Basophils # (A) 0.1 k/uL (0-0.2); Basophils % (A) 1 %; Eosinophils # (A) 0.2 k/uL (0-0.7); Eosinophils % (A) 2 %; HCT 41.8 % (34.0-46.0); HGB 13.7 gm/dL (11.4-16.0); Lymphocytes # (A) 2.8 k/uL (1.0-4.8); Lymphocytes % (A) 37 %; MCH 31.1 pg (25.0-35.0); MCHC 32.8 g/dL (31.0-37.0); MCV 94.7 fL (80.0-100.0); Mean Platelet Volume 7.4; Monocytes # (A) 0.3 k/uL (0-1.0); Monocytes % (A) 4 %; Neutrophils # (A) 4.1 k/uL (1.3-7.7); Neutrophils % (A) 53 %; Platelet Count 248 k/uL (150-450); RBC 4.41 m/uL (3.80-5.40); RDW 12.8 % (11.5-15.5); WBC 7.6 k/uL (3.8-10.6)
[2019-10-17 18:28] LABS: ALT 9 U/L (4-34); AST 41 U/L (14-36); African American GFR (CKD) >90 (>60 ml/min/1.73 sqM); Albumin 3.9 g/dL (3.5-5.0); Alkaline Phosphatase 47 U/L (38-126); Anion Gap 10 mmol/L; Blood Urea Nitrogen 12 mg/dL (7-17); Carbon Dioxide 21 mmol/L (22-30); Chloride 108 mmol/L (98-107); Glucose 90 mg/dL (74-99); Non-African American GFR(CKD) >90 (>60 ml/min/1.73 sqM); Potassium 3.5 mmol/L (3.5-5.1); Sodium 139 mmol/L (137-145); Total Bilirubin 0.2 mg/dL (0.2-1.3); Total Protein 6.4 g/dL (6.3-8.2)
--- NOTE | 2019-10-17 18:40 | XR ---
EXAMINATION TYPE: XR chest 2V DATE OF EXAM: 10/17/2019 COMPARISON: 08/30/2018 HISTORY: Cough and congestion. Syncope. Dizziness. TECHNIQUE: FINDINGS: Heart and mediastinum are normal. Lungs are clear. Diaphragm is normal. There is slight tho racolumbar dextroscoliosis. Pulmonary vascularity is normal. IMPRESSION: No cardiopulmonary disease. Normal heart. No adverse change.
[2019-10-17] MEDS ORDERED: MECLIZINE 12.5 MG TAB PO STA (18:52)
[2019-10-17 19:15] LABS: Appearance,Urine Clear (Clear); Bilirubin,Urine Negative (Negative); Blood,Urine Negative (Negative); Color,Urine Light Yellow; Glucose,Urine (UA) Negative (Negative); Ketones,Urine Negative (Negative); Leukocyte Esterase,Urine Small (Negative); Mucus,Urine Rare /hpf; Nitrite,Urine Negative (Negative); Protein,Urine Negative (Negative); Specific Gravity,Urine 1.014 (1.001-1.035); Squamous Epithelial Cell,Urine 2 /hpf (0-4); Urobilinogen,Urine <2.0 mg/dL (<2.0); WBC,Urine 8 /hpf (0-5)
[2019-10-17 19:17] LABS: Amphetamine Screen,Urine Not Detected (NotDetected); Barbiturate Screen,Urine Not Detected (NotDetected); Benzodiazepines Screen,Urine Not Detected (NotDetected); Cocaine Screen,Urine Detected (NotDetected); Methadone Screen, Urine Not Detected (NotDetected); Opiate Screen,Urine Not Detected (NotDetected); Oxycodone Screen, Urine Not Detected (NotDetected); Phencyclidine Screen,Urine Not Detected (NotDetected); Tricyclic Antidepressant,Urine Not Detected (NotDetected); Urn Cannabinoid Scrn Not Detected (NotDetected)
[2019-10-17 20:14] VITALS: BP 111/72; PULSE 80; RESP 16; TEMP 97.9
== END 2019-10-17 20:15 | disposition home or self-care (01) ==
LOC: EC 16:59
DX: R42 Dizziness and giddiness (principal); F14.90 Cocaine use, unspecified, uncomplicated; G40.909 Epilepsy, unspecified, not intractable, without status epilepticus; F41.9 Anxiety disorder, unspecified; F31.9 Bipolar disorder, unspecified; Z79.899 Other long term (current) drug therapy; Z88.6 Allergy status to analgesic agent; Z86.14 Personal history of Methicillin resistant Staphylococcus aureus infection
CPT/HCPCS: 36415; 71046; 80053; 80306; 81001; 83605; 84484; 85025; 93005; 96360; 99284

== ENCOUNTER 2020-01-13 01:55 | Emergency (ER) | payer MEDICARE, OTHER ==
[2020-01-13 02:01] VITALS: BP 119/80; PULSE 102; RESP 18; TEMP 98.1
[2020-01-13] MEDS ORDERED: LIDOCAINE 1% INJ 10MG/ML (20 ML MDV) SQ ONE (02:23)
[2020-01-13] MEDS ORDERED: HYDROcodone/APAP 5-325MG 1 EACH TAB PO STA (02:23)
[2020-01-13] MEDS ORDERED: SULFAMETHOX-TMP 800-160MG 1 EACH TAB PO STA (02:24)
--- NOTE | 2020-01-13 02:42 | ED ---
Female Urogenital HPI <Fatuma Gonzalez - Last Filed: 01/13/20 03:43> - General Source: patient Mode of arrival: ambulatory Limitations: no limitations - History of Present Illness MD Complaint: other Onset/Timin -: days(s) Location: labia (left) Radiation: non-radiating Severity: moderate Quality: dull Consistency: constant Improves with: none Worsens with: other (palpation) Patient : No <Dion Cantu - Last Filed: 01/13/20 03:49> - General Chief complaint: Urogenital Stated complaint: MRSA Time Seen by Provider: 01/13/20 02:03 - Related Data Home Medications Medication Instructions Recorded Confirmed ARIPiprazole [Abilify] 15 mg PO DAILY 09/07/13 02/10/19 DULoxetine HCL [Cymbalta] 30 mg PO DAILY 10/16/14 02/10/19 ARIPiprazole [Abilify] 10 mg PO DAILY 10/25/18 02/10/19 levETIRAcetam [Keppra] 500 mg PO Q12H 10/25/18 02/10/19 Previous Rx's Medication Instructions Recorded Cephalexin [Keflex] 500 mg PO Q6HR 7 Days #28 cap 09/05/19 Sulfamethox-Tmp 800-160Mg [Bactrim 1 tab PO Q12HR 7 Days #14 tab 09/05/19 DS 800-160 mg] Meclizine [Antivert] 25 mg PO TID #15 tab 10/17/19 Sulfamethox-Tmp 800-160Mg [Bactrim 1 each PO Q12HR #14 tab 01/13/20 Ds] Allergies Allergy/AdvReac Type Severity Reaction Status Date / Time aspirin Allergy Swelling Verified 01/13/20 02:01 Review of Systems ROS Other: All systems not noted in ROS Statement are negative. <Fatuma Gonzalez - Last Filed: 01/13/20 03:43> ROS Other: All systems not noted in ROS Statement are negative. Constitutional: Denies: fever, chills Respiratory: Denies: cough, dyspnea Cardiovascular: Denies: chest pain Gastrointestinal: Denies: abdominal pain, vomiting, diarrhea Genitourinary: Denies: dysuria, frequency, hematuria Skin: Reports: as per HPI Hematological/Lymphatic: Denies: easy bleeding <Dion Cantu Last Filed: 01/13/20 03:49> ROS Statement: Those systems with pertinent positive or pertinent negative responses have been documented in the HPI. Past Medical History Past Medical History: Seizure Disorder Additional Past Medical History / Comment(s): no meds for seziures anymore History of Any Multi-Drug Resistant Organisms: MRSA Date of last positivie culture/infection: 2016 MDRO Source:: axilla Past Surgical History: Section Past Anesthesia/Blood Transfusion Reactions: No Reported Reaction Past Psychological History: ADD/ADHD, Anxiety, Bipolar, Depression Smoking Status: Former smoker Past Alcohol Use History: None Reported Past Drug Use History: None Reported <Dion Cantu - Last Filed: 01/13/20 03:49> General Exam Limitations: no limitations General appearance: alert, in no apparent distress Head exam: Present: atraumatic, normocephalic Respiratory exam: Present: normal lung sounds bilaterally. Absent: respiratory distress, wheezes, rales, rhonchi, stridor Cardiovascular Exam: Present: regular rate, normal rhythm, normal heart sounds. Absent: systolic murmur, diastolic murmur, rubs, gallop GI/Abdominal exam: Present: soft. Absent: distended, tenderness, guarding, rebound, rigid External exam: Present: lesions, other (There is an approximately 1.5 cm diameter left labial lesion consistent with or swelling cyst. Mild tenderness.). Absent: erythema, lacerations, ecchymosis Skin exam: Present: warm, dry, intact, normal color. 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: Identity, Site, Procedure, Consent Site: Left labia Site Marked: Yes Site Verified With Patient/Guardian: Yes Final Confirmation: Procedure, Site, Laterality, Patient Position - Incision & Drainage Consent Obtained: verbal consent Indication: Bartholin abscess Site: vulva/vagina (Left labia) Size (cm): 2 Anesthetic Used: lidocaine 1% Amount (mLs): 3 I&D Cleaning Method: Betadine Sterile Field Used?: No Scalpel Used: #11 I&D Drainage Obtained: Pus, Blood Culture Obtained?: Yes Patient Tolerated Procedure: well, no complications <Fatuma Gonzalez - Last Filed: 01/13/20 03:43> Disposition <Fatuma Gonzalez - Last Filed: 01/13/20 03:43> Is patient prescribed a controlled substance at d/c from ED?: No <Dion Cantu - Last Filed: 01/13/20 03:49> Clinical Impression: Cyst of Bartholin's gland duct Disposition: HOME SELF-CARE Condition: Good Instructions (If sedation given, give patient instructions): Bartholin Cyst (ED) Prescriptions: Sulfamethox-Tmp 800-160Mg [Bactrim Ds] 1 each PO Q12HR #14 tab Referrals: Ruslan Almeida MD [Primary Care Provider] - 1-2 days
== END 2020-01-13 04:19 | disposition home or self-care (01) ==
LOC: EC 01:55
DX: N75.0 Cyst of Bartholin's gland (principal); G40.909 Epilepsy, unspecified, not intractable, without status epilepticus; F31.9 Bipolar disorder, unspecified; F41.9 Anxiety disorder, unspecified; Z79.899 Other long term (current) drug therapy; Z88.6 Allergy status to analgesic agent; Z87.891 Personal history of nicotine dependence
CPT/HCPCS: 99283; 56420; J2001

== ENCOUNTER 2020-01-20 15:05 | Emergency (ER) | payer MEDICARE, OTHER ==
[2020-01-20] MEDS ORDERED: CEPHALEXIN 500MG STARTER PACK 4 CAP BTL PO STA (16:02)
[2020-01-20] MEDS ORDERED: CEPHALEXIN 500 MG CAP PO STA (16:02)
[2020-01-20] MEDS ORDERED: SULFAMETH-TMP DS STARTER PACK 2 TAB BTL PO STA (16:02)
[2020-01-20] MEDS ORDERED: FAMOTIDINE 20 MG TAB PO STA (16:02)
[2020-01-20] MEDS ORDERED: hydrOXYzine HCL 25 MG TAB PO STA (16:02)
[2020-01-20] MEDS ORDERED: DEXAMETHASONE SOD PHOSPHATE 10 MG/ML 1 ML VIAL IM STA (16:02)
[2020-01-20] MEDS ORDERED: PERMETHRIN 5% CREAM 60 GM TUBE TOPICAL ONE (16:02)
[2020-01-20] MEDS ORDERED: SULFAMETHOX-TMP 800-160MG 1 EACH TAB PO STA (16:02)
--- NOTE | 2020-01-20 16:04 | ED ---
Skin/Abscess/FB HPI - General Chief complaint: Skin/Abscess/Foreign Body Stated complaint: Rash Time Seen by Provider: 01/20/20 15:29 Source: patient, RN notes reviewed, old records reviewed Mode of arrival: ambulatory Limitations: no limitations - History of Present Illness Initial comments: This is a 44-year-old female to the ER for evaluation patient has significant rash over arms and legs be, rashes very itchy in nature No other significant complaints. No known exposures. No fevers MD complaint: insect bite/sting -: days(s) Location: generalized, LUE, RUE, L hand, R hand, LLE, RLE, L foot, R foot Severity scale (1-10): 7 Consistency: constant Improves with: none Worsens with: none Context: none Associated symptoms: denies other symptoms Treatments Prior to Arrival: none - Related Data Home Medications Medication Instructions Recorded Confirmed ARIPiprazole [Abilify] 15 mg PO DAILY 09/07/13 02/10/19 DULoxetine HCL [Cymbalta] 30 mg PO DAILY 10/16/14 02/10/19 ARIPiprazole [Abilify] 10 mg PO DAILY 10/25/18 02/10/19 levETIRAcetam [Keppra] 500 mg PO Q12H 10/25/18 02/10/19 Previous Rx's Medication Instructions Recorded Cephalexin [Keflex] 500 mg PO Q6HR 7 Days #28 cap 09/05/19 Sulfamethox-Tmp 800-160Mg [Bactrim 1 tab PO Q12HR 7 Days #14 tab 09/05/19 DS 800-160 mg] Meclizine [Antivert] 25 mg PO TID #15 tab 10/17/19 Sulfamethox-Tmp 800-160Mg [Bactrim 1 each PO Q12HR #14 tab 01/13/20 Ds] Cephalexin [Keflex] 500 mg PO Q6HR #40 cap 01/20/20 Famotidine [Pepcid] 20 mg PO BID #28 tablet 01/20/20 Sulfamethox-Tmp 800-160Mg [Bactrim 2 tab PO BID #40 tab 01/20/20 DS 800-160 mg] hydrOXYzine HCL [Atarax] 25 mg PO TID PRN #15 tab 01/20/20 Allergies Allergy/AdvReac Type Severity Reaction Status Date / Time aspirin Allergy Swelling Verified 01/20/20 15:08 Review of Systems ROS Statement: Those systems with pertinent positive or pertinent negative responses have been documented in the HPI. ROS Other: All systems not noted in ROS Statement are negative. Past Medical History Past Medical History: Seizure Disorder Additional Past Medical History / Comment(s): no meds for seziures anymore History of Any Multi-Drug Resistant Organisms: MRSA Date of last positivie culture/infection: 2019 MDRO Source:: labia Past Surgical History: Section Past Anesthesia/Blood Transfusion Reactions: No Reported Reaction Past Psychological History: ADD/ADHD, Anxiety, Bipolar, Depression Smoking Status: Former smoker Past Alcohol Use History: None Reported Past Drug Use History: None Reported General Exam - General Exam Comments Initial Comments: Diffuse scabies-like. Rash Limitations: no limitations General appearance: alert, in no apparent distress Head exam: Present: atraumatic, normocephalic, normal inspection Eye exam: Present: normal appearance, PERRL, EOMI. Absent: scleral icterus, conjunctival injection, periorbital swelling ENT exam: Present: normal exam, mucous membranes moist Neck exam: Present: normal inspection. Absent: tenderness, meningismus, lymphadenopathy Respiratory exam: Present: normal lung sounds bilaterally. Absent: respiratory distress, wheezes, rales, rhonchi, stridor Cardiovascular Exam: Present: regular rate, normal rhythm, normal heart sounds. Absent: systolic murmur, diastolic murmur, rubs, gallop, clicks GI/Abdominal exam: Present: soft, normal bowel sounds. Absent: distended, tenderness, guarding, rebound, rigid Extremities exam: Present: normal inspection, full ROM, normal capillary refill. Absent: tenderness, pedal edema, joint swelling, calf tenderness Back exam: Present: normal inspection Neurological exam: Present: alert, oriented X3, CN II-XII intact Psychiatric exam: Present: normal affect, normal mood Skin exam: Present: warm, dry, intact, normal color. Absent: rash Course Vital Signs 01/20/20 01/20/20 15:06 16:43 Temperature 98.5 F 98.4 F Pulse Rate 112 H 79 Respiratory 22 18 Rate Blood Pressure 108/74 105/46 O2 Sat by Pulse 96 100 Oximetry - Reevaluation(s) Reevaluation #1: Medical record is reviewed Patient is seen and reevaluated with no worsening symptoms, symptoms are improving. Patient informed of findings, questions answered Patient feels good for discharge home Medical Decision Making - Medical Decision Making Auty 4 female DF for evaluation of rash. Patient does appear to have bug bite rash could be scabies in nature, will treat appropriately discharged home Disposition Clinical Impression: Bug bites Disposition: HOME SELF-CARE Condition: Good Instructions (If sedation given, give patient instructions): Insect Bite or Sting (ED) Prescriptions: hydrOXYzine HCL [Atarax] 25 mg PO TID PRN #15 tab PRN Reason: Itching Sulfamethox-Tmp 800-160Mg [Bactrim DS 800-160 mg] 2 tab PO BID #40 tab Cephalexin [Keflex] 500 mg PO Q6HR #40 cap Famotidine [Pepcid] 20 mg PO BID #28 tablet Is patient prescribed a controlled substance at d/c from ED?: No Referrals: Ruslan Almeida MD [Primary Care Provider] - 1-2 days
[2020-01-20 16:43] VITALS: BP 105/46; PULSE 79; RESP 18; TEMP 98.4
== END 2020-01-20 16:49 | disposition home or self-care (01) ==
LOC: EC 15:05
DX: S60.562A Insect bite (nonvenomous) of left hand, initial encounter (principal); S60.561A Insect bite (nonvenomous) of right hand, initial encounter; S50.862A Insect bite (nonvenomous) of left forearm, initial encounter; S50.861A Insect bite (nonvenomous) of right forearm, initial encounter; S90.862A Insect bite (nonvenomous), left foot, initial encounter; S90.861A Insect bite (nonvenomous), right foot, initial encounter; F31.9 Bipolar disorder, unspecified; F41.9 Anxiety disorder, unspecified; G40.909 Epilepsy, unspecified, not intractable, without status epilepticus; Z79.899 Other long term (current) drug therapy; Z88.6 Allergy status to analgesic agent; Z87.891 Personal history of nicotine dependence; W57.XXXA Bitten or stung by nonvenomous insect and other nonvenomous arthropods, initial encounter
CPT/HCPCS: 99283; 96372; J1100

== ENCOUNTER 2020-05-26 17:14 | Observation (INO) | payer MEDICARE, OTHER ==
[2020-05-26] MEDS ORDERED: MORPHINE SULFATE 2 MG/ML SYRINGE IVP STA (17:28)
[2020-05-26] MEDS ORDERED: SODIUM CHLORIDE 0.9% 500 ML 500 ML IV STA (17:28)
[2020-05-26] MEDS ORDERED: LORazepam 2 MG/ML INJ IV STA (17:29)
--- NOTE | 2020-05-26 17:34 | ED ---
General Adult HPI - General Stated complaint: Chest Pain Time Seen by Provider: 05/26/20 17:18 Source: patient, RN notes reviewed, old records reviewed - History of Present Illness Initial comments: 44-year-old female presenting for evaluation of left-sided chest pain. Pain began about 4 hours prior to arrival. Nonradiating with some associated dyspnea. Patient does admit to doing crack cocaine earlier in the day. Additionally she states the pain began shortly after having a seizure. She has a seizure history and states this is not abnormal for her to have a seizure but states that the pain after seizure is normal. Uncertain if there was trauma to the chest associated with the seizure. She denies vomiting. Denies abdominal pain. Denies cough or fever. - Related Data Home Medications Medication Instructions Recorded Confirmed ARIPiprazole [Abilify] 15 mg PO DAILY 09/07/13 02/10/19 DULoxetine HCL [Cymbalta] 30 mg PO DAILY 10/16/14 02/10/19 ARIPiprazole [Abilify] 10 mg PO DAILY 10/25/18 02/10/19 levETIRAcetam [Keppra] 500 mg PO Q12H 10/25/18 02/10/19 Previous Rx's Medication Instructions Recorded Cephalexin [Keflex] 500 mg PO Q6HR 7 Days #28 cap 09/05/19 Sulfamethox-Tmp 800-160Mg [Bactrim 1 tab PO Q12HR 7 Days #14 tab 09/05/19 DS 800-160 mg] Meclizine [Antivert] 25 mg PO TID #15 tab 10/17/19 Sulfamethox-Tmp 800-160Mg [Bactrim 1 each PO Q12HR #14 tab 01/13/20 Ds] Cephalexin [Keflex] 500 mg PO Q6HR #40 cap 01/20/20 Famotidine [Pepcid] 20 mg PO BID #28 tablet 01/20/20 Sulfamethox-Tmp 800-160Mg [Bactrim 2 tab PO BID #40 tab 01/20/20 DS 800-160 mg] hydrOXYzine HCL [Atarax] 25 mg PO TID PRN #15 tab 01/20/20 Allergies Allergy/AdvReac Type Severity Reaction Status Date / Time aspirin Allergy Swelling Verified 05/26/20 17:32 Review of Systems ROS Statement: Those systems with pertinent positive or pertinent negative responses have been documented in the HPI. ROS Other: All systems not noted in ROS Statement are negative. Past Medical History Past Medical History: Seizure Disorder Additional Past Medical History / Comment(s): no meds for seziures anymore History of Any Multi-Drug Resistant Organisms: MRSA Date of last positivie culture/infection: 2019 MDRO Source:: labia Past Surgical History: Section Past Anesthesia/Blood Transfusion Reactions: No Reported Reaction Past Psychological History: ADD/ADHD, Anxiety, Bipolar, Depression Smoking Status: Former smoker Past Alcohol Use History: None Reported Past Drug Use History: None Reported General Exam General appearance: alert, in no apparent distress Head exam: Present: atraumatic, normocephalic Eye exam: Present: normal appearance, PERRL ENT exam: Present: normal exam Neck exam: Present: normal inspection. Absent: tenderness, meningismus Respiratory exam: Present: normal lung sounds bilaterally. Absent: respiratory distress, wheezes Cardiovascular Exam: Present: regular rate, normal rhythm GI/Abdominal exam: Present: soft. Absent: distended, tenderness, guarding Extremities exam: Present: normal inspection, normal capillary refill. Absent: pedal edema Neurological exam: Present: alert, oriented X3, CN II-XII intact. Absent: motor sensory deficit Psychiatric exam: Present: anxious Skin exam: Present: warm, dry, intact. Absent: cyanosis, diaphoretic Course Vital Signs 05/26/20 05/26/20 05/26/20 17:21 17:26 19:17 Temperature 98.5 F Pulse Rate 94 87 Pulse Rate [ 89 Solutions Analyst ] Respiratory 18 17 Rate Blood Pressure 117/58 116/70 O2 Sat by Pulse 100 100 Oximetry - Reevaluation(s) Reevaluation #1: 05/26/20 19:30 CT does demonstrate pneumothorax, no other acute findings. CTs anterior to the hard measuring between 5 and 10%. Pneumothorax not visualized on chest x-ray. Patient hemodynamically stable, normal blood pressure, normal oxygenation on room air, no tachypnea or tachycardia. 05/26/20 19:30 EKG Findings - EKG Comments: EKG Findings:: EKG: Sinus rhythm, ventricular rate of 90, AR interval 110, QRS duration 82, QTC 445, no ST segment elevation. Medical Decision Making - Medical Decision Making 44-year-old female presenting with chest pain after using crack cocaine. Initial concern was for vasospasm and cocaine chest pain. Workup reveals EKG was sinus rhythm, no definitive ischemic changes. Chest x-ray negative for acute cardio pulmonary disease, normal CBC, normal CMP negative troponin. D- dimer was elevated and therefore CT angiography was performed. This was negative for pulmonary embolism but does show an left-sided spontaneous pneumothorax. Patient is placed on a nonrebreather. I discussed case both with Dr. Almeida and Dr. Chang. The patient will be admitted, repeat chest x-ray ordered for 12 hours from now. Patient will be maintained on a nonrebreather and monitored on telemetry. - Lab Data Result diagrams: 05/26/20 17:38 05/26/20 17:38 Lab Results 05/26/20 05/26/20 05/26/20 Range/Units 17:38 17:38 17:38 WBC 11.7 H (3.8-10.6) k/uL RBC 4.76 (3.80-5.40) m/uL Hgb 14.8 (11.4-16.0) gm/dL Hct 44.1 (34.0-46.0) % MCV 92.8 (80.0-100.0) fL MCH 31.2 (25.0-35.0) pg MCHC 33.6 (31.0-37.0) g/dL RDW 12.3 (11.5-15.5) % Plt Count 256 (150-450) k/uL MPV 7.3 Neutrophils % 78 % Lymphocytes % 17 % Monocytes % 4 % Eosinophils % 1 % Basophils % 0 % Neutrophils # 9.1 H (1.3-7.7) k/uL Lymphocytes # 2.0 (1.0-4.8) k/uL Monocytes # 0.4 (0-1.0) k/uL Eosinophils # 0.1 (0-0.7) k/uL Basophils # 0.1 (0-0.2) k/uL PT 10.6 (9.0-12.0) sec INR 1.0 (<1.2) APTT 22.3 (22.0-30.0) sec D-Dimer 1.23 H (<0.60) mg/L FEU Sodium 137 (137-145) mmol/L Potassium 3.8 (3.5-5.1) mmol/L Chloride 104 (98-107) mmol/L Carbon Dioxide 25 (22-30) mmol/L Anion Gap 8 mmol/L BUN 7 (7-17) mg/dL Creatinine 0.86 (0.52-1.04) mg/dL Est GFR (CKD-EPI)AfAm >90 (>60 ml/min/1.73 sqM) Est GFR (CKD-EPI)NonAf 84 (>60 ml/min/1.73 sqM) Glucose 95 (74-99) mg/dL Calcium 9.7 (8.4-10.2) mg/dL Magnesium 2.2 (1.6-2.3) mg/dL Total Bilirubin 0.6 (0.2-1.3) mg/dL AST 22 (14-36) U/L ALT 6 (4-34) U/L Alkaline Phosphatase 51 (38-126) U/L Troponin I (0.000-0.034) ng/mL Total Protein 7.4 (6.3-8.2) g/dL Albumin 4.6 (3.5-5.0) g/dL Urine Color Urine Appearance (Clear) Urine pH (5.0-8.0) Ur Specific Hope (1.001-1.035) Urine Protein (Negative) Urine Glucose (UA) (Negative) Urine Ketones (Negative) Urine Blood (Negative) Urine Nitrite (Negative) Urine Bilirubin (Negative) Urine Urobilinogen (<2.0) mg/dL Ur Leukocyte Esterase (Negative) Urine RBC (0-5) /hpf Urine WBC (0-5) /hpf Ur Squamous Epith Cells (0-4) /hpf Urine Bacteria (None) /hpf Urine Mucus (None) /hpf Urine HCG, Qual (Not Detectd) Urine Opiates Screen (NotDetected) Ur Oxycodone Screen (NotDetected) Urine Methadone Screen (NotDetected) Ur Propoxyphene Screen (NotDetected) Ur Barbiturates Screen (NotDetected) U Tricyclic Antidepress (NotDetected) Ur Phencyclidine Scrn (NotDetected) Ur Amphetamines Screen (NotDetected) U Methamphetamines Scrn (NotDetected) U Benzodiazepines Scrn (NotDetected) Urine Cocaine Screen (NotDetected) U Marijuana (THC) Screen (NotDetected) 05/26/20 05/26/20 05/26/20 Range/Units 17:38 17:38 17:38 WBC (3.8-10.6) k/uL RBC (3.80-5.40) m/uL Hgb (11.4-16.0) gm/dL Hct (34.0-46.0) % MCV (80.0-100.0) fL MCH (25.0-35.0) pg MCHC (31.0-37.0) g/dL RDW (11.5-15.5) % Plt Count (150-450) k/uL MPV Neutrophils % % Lymphocytes % % Monocytes % % Eosinophils % % Basophils % % Neutrophils # (1.3-7.7) k/uL Lymphocytes # (1.0-4.8) k/uL Monocytes # (0-1.0) k/uL Eosinophils # (0-0.7) k/uL Basophils # (0-0.2) k/uL PT (9.0-12.0) sec INR (<1.2) APTT (22.0-30.0) sec D-Dimer (<0.60) mg/L FEU Sodium (137-145) mmol/L Potassium (3.5-5.1) mmol/L Chloride (98-107) mmol/L Carbon Dioxide (22-30) mmol/L Anion Gap mmol/L BUN (7-17) mg/dL Creatinine (0.52-1.04) mg/dL Est GFR (CKD-EPI)AfAm (>60 ml/min/1.73 sqM) Est GFR (CKD-EPI)NonAf (>60 ml/min/1.73 sqM) Glucose (74-99) mg/dL Calcium (8.4-10.2) mg/dL Magnesium (1.6-2.3) mg/dL Total Bilirubin (0.2-1.3) mg/dL AST (14-36) U/L ALT (4-34) U/L Alkaline Phosphatase (38-126) U/L Troponin I <0.012 (0.000-0.034) ng/mL Total Protein (6.3-8.2) g/dL Albumin (3.5-5.0) g/dL Urine Color Light Yellow Urine Appearance Clear (Clear) Urine pH 6.0 (5.0-8.0) Ur Specific Hope 1.009 (1.001-1.035) Urine Protein Negative (Negative) Urine Glucose (UA) Negative (Negative) Urine Ketones Negative (Negative) Urine Blood Negative (Negative) Urine Nitrite Negative (Negative) Urine Bilirubin Negative (Negative) Urine Urobilinogen 2.0 (<2.0) mg/dL Ur Leukocyte Esterase Trace H (Negative) Urine RBC 1 (0-5) /hpf Urine WBC 2 (0-5) /hpf Ur Squamous Epith Cells 1 (0-4) /hpf Urine Bacteria Occasional H (None) /hpf Urine Mucus Rare H (None) /hpf Urine HCG, Qual Not Detected (Not Detectd) Urine Opiates Screen (NotDetected) Ur Oxycodone Screen (NotDetected) Urine Methadone Screen (NotDetected) Ur Propoxyphene Screen (NotDetected) Ur Barbiturates Screen (NotDetected) U Tricyclic Antidepress (NotDetected) Ur Phencyclidine Scrn (NotDetected) Ur Amphetamines Screen (NotDetected) U Methamphetamines Scrn (NotDetected) U Benzodiazepines Scrn (NotDetected) Urine Cocaine Screen (NotDetected) U Marijuana (THC) Screen (NotDetected) 05/26/20 Range/Units 17:38 WBC (3.8-10.6) k/uL RBC (3.80-5.40) m/uL Hgb (11.4-16.0) gm/dL Hct (34.0-46.0) % MCV (80.0-100.0) fL MCH (25.0-35.0) pg MCHC (31.0-37.0) g/dL RDW (11.5-15.5) % Plt Count (150-450) k/uL MPV Neutrophils % % Lymphocytes % % Monocytes % % Eosinophils % % Basophils % % Neutrophils # (1.3-7.7) k/uL Lymphocytes # (1.0-4.8) k/uL Monocytes # (0-1.0) k/uL Eosinophils # (0-0.7) k/uL Basophils # (0-0.2) k/uL PT (9.0-12.0) sec INR (<1.2) APTT (22.0-30.0) sec D-Dimer (<0.60) mg/L FEU Sodium (137-145) mmol/L Potassium (3.5-5.1) mmol/L Chloride (98-107) mmol/L Carbon Dioxide (22-30) mmol/L Anion Gap mmol/L BUN (7-17) mg/dL Creatinine (0.52-1.04) mg/dL Est GFR (CKD-EPI)AfAm (>60 ml/min/1.73 sqM) Est GFR (CKD-EPI)NonAf (>60 ml/min/1.73 sqM) Glucose (74-99) mg/dL Calcium (8.4-10.2) mg/dL Magnesium (1.6-2.3) mg/dL Total Bilirubin (0.2-1.3) mg/dL AST (14-36) U/L ALT (4-34) U/L Alkaline Phosphatase (38-126) U/L Troponin I (0.000-0.034) ng/mL Total Protein (6.3-8.2) g/dL Albumin (3.5-5.0) g/dL Urine Color Urine Appearance (Clear) Urine pH (5.0-8.0) Ur Specific Hope (1.001-1.035) Urine Protein (Negative) Urine Glucose (UA) (Negative) Urine Ketones (Negative) Urine Blood (Negative) Urine Nitrite (Negative) Urine Bilirubin (Negative) Urine Urobilinogen (<2.0) mg/dL Ur Leukocyte Esterase (Negative) Urine RBC (0-5) /hpf Urine WBC (0-5) /hpf Ur Squamous Epith Cells (0-4) /hpf Urine Bacteria (None) /hpf Urine Mucus (None) /hpf Urine HCG, Qual (Not Detectd) Urine Opiates Screen Detected H (NotDetected) Ur Oxycodone Screen Not Detected (NotDetected) Urine Methadone Screen Not Detected (NotDetected) Ur Propoxyphene Screen Not Detected (NotDetected) Ur Barbiturates Screen Not Detected (NotDetected) U Tricyclic Antidepress Not Detected (NotDetected) Ur Phencyclidine Scrn Not Detected (NotDetected) Ur Amphetamines Screen Not Detected (NotDetected) U Methamphetamines Scrn Not Detected (NotDetected) U Benzodiazepines Scrn Not Detected (NotDetected) Urine Cocaine Screen Detected H (NotDetected) U Marijuana (THC) Screen Not Detected (NotDetected) Disposition Clinical Impression: Spontaneous pneumothorax Disposition: ADMITTED IP TO THIS [facility] Condition: Stable Is patient prescribed a controlled substance at d/c from ED?: No Referrals: Ruslan Almeida MD [Primary Care Provider] - 1-2 days Decision to Admit Reason: Admit from EC Decision Date: 05/26/20 Decision Time: 19:33
[2020-05-26 17:48] LABS: Basophils # (A) 0.1 k/uL (0-0.2); Basophils % (A) 0 %; Eosinophils # (A) 0.1 k/uL (0-0.7); Eosinophils % (A) 1 %; HCT 44.1 % (34.0-46.0); HGB 14.8 gm/dL (11.4-16.0); Lymphocytes % (A) 17 %; MCH 31.2 pg (25.0-35.0); MCHC 33.6 g/dL (31.0-37.0); MCV 92.8 fL (80.0-100.0); Mean Platelet Volume 7.3; Monocytes # (A) 0.4 k/uL (0-1.0); Monocytes % (A) 4 %; Neutrophils # (A) 9.1 k/uL (1.3-7.7); Neutrophils % (A) 78 %; Platelet Count 256 k/uL (150-450); RBC 4.76 m/uL (3.80-5.40); RDW 12.3 % (11.5-15.5); WBC 11.7 k/uL (3.8-10.6)
[2020-05-26 17:59] LABS: ALT 6 U/L (4-34); AST 22 U/L (14-36); African American GFR (CKD) >90 (>60 ml/min/1.73 sqM); Albumin 4.6 g/dL (3.5-5.0); Alkaline Phosphatase 51 U/L (38-126); Anion Gap 8 mmol/L; Blood Urea Nitrogen 7 mg/dL (7-17); Calcium 9.7 mg/dL (8.4-10.2); Carbon Dioxide 25 mmol/L (22-30); Chloride 104 mmol/L (98-107); Glucose 95 mg/dL (74-99); Magnesium 2.2 mg/dL (1.6-2.3); Non-African American GFR(CKD) 84 (>60 ml/min/1.73 sqM); Potassium 3.8 mmol/L (3.5-5.1); Sodium 137 mmol/L (137-145); Total Bilirubin 0.6 mg/dL (0.2-1.3); Total Protein 7.4 g/dL (6.3-8.2)
[2020-05-26 18:05] LABS: Partial Thromboplastin Time 22.3 sec (22.0-30.0); Prothrombin Time 10.6 sec (9.0-12.0)
[2020-05-26 18:10] LABS: D-Dimer 1.23 mg/L FEU (<0.60)
--- NOTE | 2020-05-26 18:44 | XR ---
EXAMINATION TYPE: XR chest 2V DATE OF EXAM: 05/26/2020 COMPARISON: 10/17/2019 HISTORY: Dizziness TECHNIQUE: 2 views FINDINGS: Heart and mediastinum are normal. Lungs are clear of infiltrate. There is no heart failure. There are no hilar masses. There are chest leads. There is slight thoracic dextroscoliosis. IMPRESSION: No active cardiopulmonary disease. Normal heart. No adverse change.
[2020-05-26 18:51] LABS: Appearance,Urine Clear (Clear); Bacteria,Urine Occasional /hpf; Bilirubin,Urine Negative (Negative); Blood,Urine Negative (Negative); Color,Urine Light Yellow; Glucose,Urine (UA) Negative (Negative); Ketones,Urine Negative (Negative); Leukocyte Esterase,Urine Trace (Negative); Mucus,Urine Rare /hpf; Nitrite,Urine Negative (Negative); Protein,Urine Negative (Negative); RBC,Urine 1 /hpf (0-5); Specific Gravity,Urine 1.009 (1.001-1.035); Squamous Epithelial Cell,Urine 1 /hpf (0-4); WBC,Urine 2 /hpf (0-5)
--- NOTE | 2020-05-26 19:17 | CT ---
EXAMINATION TYPE: CT angio chest DATE OF EXAM: 05/26/2020 COMPARISON: 12/05/2011 HISTORY: Elevated d-dimer. chest pain CT DLP: 157.2 mGycm Automated exposure control for dose reduction was used. CONTRAST: Performed with IV Contrast, patient injected with 80 mL of Isovue 370. There are 3-D post processed images. There is a mild left side pneumothorax. This is seen on the left cardiac border. Pneumothorax is appr oximately 5%. There is some mild subsegmental atelectasis at the left lung base. There is no evidence of a pulmonary mass. There is no pulmonary consolidation. There is no mediastinal adenopathy. There are no hilar masses. Thoracic aorta is intact. Ascending ao rta measures 3.2 cm. There is no aneurysm or dissection. There is normal contrast opacification of the pulmonary arteries. There are no filling defects. Thoracic spine is intact. There is no compression fracture. Sternum is intact. Upper abdominal soft t issues are intact. IMPRESSION: No evidence of pulmonary embolism. There is approximate 5% left side pneumothorax which is a change compared to old exam. There is some interstitial infiltrate and subsegmental atelectasis left lung base. This exam was discussed with Dr. Santos at 7:15 PM.
[2020-05-26 19:20] LABS: Amphetamine Screen,Urine Not Detected (NotDetected); Barbiturate Screen,Urine Not Detected (NotDetected); Benzodiazepines Screen,Urine Not Detected (NotDetected); Cocaine Screen,Urine Detected (NotDetected); Methadone Screen, Urine Not Detected (NotDetected); Opiate Screen,Urine Detected (NotDetected); Oxycodone Screen, Urine Not Detected (NotDetected); Phencyclidine Screen,Urine Not Detected (NotDetected); Tricyclic Antidepressant,Urine Not Detected (NotDetected); Urn Cannabinoid Scrn Not Detected (NotDetected)
[2020-05-26] MEDS ORDERED: NALOXONE 0.4 MG/ML 1 ML VIAL IV PRN (19:23)
[2020-05-26] MEDS ORDERED: ACETAMINOPHEN TAB 325 MG TAB PO PRN (19:23)
[2020-05-26] MEDS: MORPHINE SULFATE 4 MG/ML SYRINGE IV PRN ×2 (20:08→23:16)
[2020-05-27] MEDS ORDERED: levETIRAcetam 500 MG TAB PO SCH
[2020-05-27] MEDS: MORPHINE SULFATE 4 MG/ML SYRINGE IV PRN ×2 (04:02→09:19)
--- NOTE | 2020-05-27 07:32 | XR ---
EXAMINATION TYPE: XR chest 2V DATE OF EXAM: 05/27/2020 COMPARISON: CTA chest and chest x-ray from yesterday and older x-rays. HISTORY: History of pneumothorax. TECHNIQUE: Frontal and lateral views of the chest are obtained. FINDINGS: There is new small left pleural fluid collection. Suspected tiny lateral basilar left pleu ral air collection correlating with anterior visualized pneumothorax on CT. The cardiac silhouette si ze remains within normal limits. Underlying scoliosis redemonstrated. Right lung remains clear. IMPRESSION: New small left pleural fluid collection and associated left basilar atelectasis and/or i nfiltrate. Tiny left-sided pneumothorax estimated under 5% likely improving, not as well-seen on plai n films versus CT.
[2020-05-27 07:56] LABS: ALT <6 U/L (4-34); AST 16 U/L (14-36); African American GFR (CKD) >90 (>60 ml/min/1.73 sqM); Alkaline Phosphatase 47 U/L (38-126); Anion Gap 8 mmol/L; Blood Urea Nitrogen 4 mg/dL (7-17); Calcium 9.5 mg/dL (8.4-10.2); Carbon Dioxide 26 mmol/L (22-30); Chloride 104 mmol/L (98-107); Glucose 85 mg/dL (74-99); Non-African American GFR(CKD) 88 (>60 ml/min/1.73 sqM); Potassium 3.3 mmol/L (3.5-5.1); Sodium 138 mmol/L (137-145); Total Protein 6.5 g/dL (6.3-8.2)
[2020-05-27 08:30] VITALS: TEMP 99.1
[2020-05-27] MEDS ORDERED: Potassium Replacement Protocol 1 EACH MISC MISCELLANE PRN (08:49)
[2020-05-27] MEDS ORDERED: ARIPiprazole 15 MG TAB PO SCH (09:00)
[2020-05-27] MEDS ORDERED: ARIPiprazole 10 MG TAB PO SCH (09:00)
[2020-05-27] MEDS ORDERED: MECLIZINE 25 MG TAB PO SCH (09:00)
[2020-05-27] MEDS ORDERED: hydrOXYzine HCL 25 MG TAB PO PRN (09:00)
[2020-05-27] MEDS ORDERED: FAMOTIDINE 20 MG TAB PO SCH (09:00)
[2020-05-27] MEDS ORDERED: DULoxetine HCL 30 MG CAPSULE.DR PO SCH (09:00)
[2020-05-27] MEDS: POTASSIUM CHLORIDE ER 20 MEQ TAB.ER PO SCH ×2 (09:18→12:26)
--- NOTE | 2020-05-27 09:43 | P.DS ---
Providers Date of admission: 05/26/20 19:23 Attending physician: Ruslan Almeida Consults: 05/26/20 19:24 Consult Physician Urgent Consulting Provider: Kevin Chang Consult Reason/Comments: spontaneous pneumothorax Do you want consulting provider notified?: Already Contacted Primary care physician: Ruslan Almeida Hospital Course: The patient Is here related to spontaneous pneumothorax with cocaine use. The patient was stabilized and had no withdrawal. The patient will follow up with me in 3 days. Sent prior to discharge about helping her with her substance abuse. Patient Condition at Discharge: Stable Plan - Discharge Summary Discharge Rx Participant: Yes New Discharge Prescriptions: Continue ARIPiprazole [Abilify] 15 mg PO DAILY DULoxetine HCL [Cymbalta] 30 mg PO DAILY ARIPiprazole [Abilify] 10 mg PO DAILY levETIRAcetam [Keppra] 750 mg PO BID Discharge Medication List ARIPiprazole [Abilify] 15 mg PO DAILY 09/07/13 [History] DULoxetine HCL [Cymbalta] 30 mg PO DAILY 10/16/14 [History] ARIPiprazole [Abilify] 10 mg PO DAILY 10/25/18 [History] levETIRAcetam [Keppra] 750 mg PO BID 05/27/20 [History] Follow up Appointment(s)/Referral(s): Ruslan Almeida MD [Primary Care Provider] - 1-2 days
--- NOTE | 2020-05-27 11:49 | P.CNPUL ---
History of Present Illness Consult date: 05/27/20 Requesting physician: Ruslan Almeida Reason for consult: dyspnea, chest pain, pneumothorax, abnormal CXR/CT Chief complaint: Chest pain and shortness of breath. History of present illness: This is a 44-year-old female who presented to the emergency department with complaints of left-sided chest pain, and shortness of breath. She went to the emergency room on May 26, at 1714, but apparently 4 hours prior, started having shortness of breath and left-sided chest pain. She apparently did smoke crack cocaine earlier that same day. She was evaluated in the emergency department and was found to have a small less than 5% pneumothorax on the left. It was not seen on chest x-ray but only on the CAT scan. No interventions were contemplated. She apparently does have a history of chronic seizure disorder, and had a seizure earlier that same day. Currently, her only complaint is chest pain on the left side. She's on room air, and her saturations are 99%. Her follow-up chest x-ray still does not reveal any pneumothorax. From my perspective, the patient could be considered for discharge home. She's currently not on any oxygen. She denies any fever or chills. She also denies any cough or phlegm production. There is no nausea, vomiting, diarrhea or abdominal pain. Review of Systems REVIEW OF SYSTEMS: CONSTITUTIONAL: [Negative.] NEUROLOGIC: [ Negative.] HEENT: [ Negative.] CARDIAC: Sharp left-sided chest pain. PULMONARY: Shortness of breath. GI: [Negative.] : [Negative.] RHEUMATOLOGIC: [ Negative.] IMMUNOLOGIC: [ Negative.] ENDOCRINE: [Negative. ] DERMATOLOGIC: [Negative.] Past Medical History Past Medical History: Seizure Disorder Additional Past Medical History / Comment(s): no meds for seziures anymore History of Any Multi-Drug Resistant Organisms: MRSA Date of last positivie culture/infection: 2019 MDRO Source:: labia Past Surgical History: Section Past Anesthesia/Blood Transfusion Reactions: No Reported Reaction Past Psychological History: ADD/ADHD, Anxiety, Bipolar, Depression Smoking Status: Former smoker Past Alcohol Use History: None Reported Past Drug Use History: None Reported Medications and Allergies Home Medications Medication Instructions Recorded Confirmed Type ARIPiprazole [Abilify] 15 mg PO DAILY 09/07/13 05/26/20 History DULoxetine HCL [Cymbalta] 30 mg PO DAILY 10/16/14 05/26/20 History ARIPiprazole [Abilify] 10 mg PO DAILY 10/25/18 05/26/20 History levETIRAcetam [Keppra] 750 mg PO BID 05/27/20 05/27/20 History Allergies Allergy/AdvReac Type Severity Reaction Status Date / Time aspirin Allergy Swelling Verified 05/26/20 17:32 Physical Exam Osteopathic Statement: *. No significant issues noted on an osteopathic structural exam other than those noted in the History and Physical/Consult. Vitals: Vital Signs Temp Pulse Pulse Resp BP BP Pulse Ox 05/27/20 08:30 99.1 F 76 18 114/56 97 05/27/20 04:00 97.7 F 71 20 105/53 99 05/27/20 00:00 97.6 F 83 18 104/57 100 05/26/20 20:20 98.3 F 91 22 115/58 100 05/26/20 19:53 100 19 108/58 99 05/26/20 19:17 87 17 116/70 100 05/26/20 17:26 89 05/26/20 17:21 98.5 F 94 18 117/58 100 Intake and Output 05/26/20 05/27/20 05/27/20 22:59 06:59 14:59 Intake Total 950 0 0 Balance 950 0 0 Intake: Oral 950 0 0 Other: Voiding Method Bedside Commode Bedside Commode Bedside Commode Bedpan Bedpan Bedpan # Voids 1 Weight 54.431 kg 60.5 kg No acute distress, oriented 3. No supplemental oxygen. HEENT examination is grossly unremarkable. Mucous membranes are moist. No oral lesions. Neck supple. Full range of motion. No adenopathy thyromegaly or neck vein distention. Cardiovascular examination reveals regular rhythm rate. S1-S2 normal. No S3 or S4. No discernible murmur noted. Heart rate is 76 bpm. Lungs reveal clear breath sounds. Her sounds are equal bilaterally. No adventitious lung sounds including wheezes rhonchi or crackles. Abdomen soft bowel sounds are heard. No masses or tenderness. Extremities are intact. No cyanosis clubbing or edema. Skin is without rash or lesion. Neurologic examination is brief but nonfocal. Results - Laboratory Findings CBC and BMP: 05/26/20 17:38 05/27/20 07:13 PT/INR, D-dimer PT 10.6 sec (9.0-12.0) 05/26/20 17:38 INR 1.0 (<1.2) 05/26/20 17:38 D-Dimer 1.23 mg/L FEU (<0.60) H 05/26/20 17:38 Abnormal lab findings: Abnormal Labs 05/26/20 05/26/20 05/26/20 17:38 17:38 17:38 WBC 11.7 H Neutrophils # 9.1 H D-Dimer 1.23 H Potassium BUN Ur Leukocyte Esterase Trace H Urine Bacteria Occasional H Urine Mucus Rare H Urine Opiates Screen Urine Cocaine Screen 05/26/20 05/27/20 17:38 07:13 WBC Neutrophils # D-Dimer Potassium 3.3 L BUN 4 L Ur Leukocyte Esterase Urine Bacteria Urine Mucus Urine Opiates Screen Detected H Urine Cocaine Screen Detected H - Diagnostic Findings Chest x-ray: image reviewed CT scan - chest: image reviewed Assessment and Plan Assessment: Status post small, less than 5%, left-sided pneumothorax. History of chronic seizure disorder. History of crack cocaine use. History of ADHD. Former tobacco use. History of anxiety/depression. Plan: Plan dated 05/27/2020. Currently, the patient is stable. From the pulmonary perspective, she could be discharged home. The patient should have a follow-up chest x-ray with her primary care provider. This can be done on Saturday. She she developed worsening shortness of breath or chest pain, she should come back to the emergency room for further evaluation. She is encouraged not to smoke cigarettes, or crackles anymore. White count 11.7, hemoglobin 14.8, hematocrit 44.1, and platelet count 256,000. D-dimer is 1.23, and PT, INR, and PTT are all normal. Sodium is 138, potassium 3.3, chlorides 104, CO2 26, anion gap 8, BUN 4, creatinine 0.83. Her drug screen was positive for opiates, and cocaine. Prognosis is guarded. We'll continue to follow. Additional recommendations and suggestions are forthcoming. Time with Patient: Greater than 30
[2020-05-27 12:26] VITALS: BP 92/49; PULSE 84; RESP 16
--- NOTE | 2020-05-27 12:53 | P.HPIM ---
History of Present Illness H&P Date: 05/27/20 Chief Complaint: Pneumothorax. History and physical on a 44-year-old black female with known history of bipolar depression who struggles with cocaine usage. We had a long discussion regarding appropriate social support systems that could help her stay away from the illicit substances. She has struggled with depression and bipolar disorder for quite some time however. She complains of back pain. She is essentially admitted because CT scan of the chest which was done because of elevated d-dimer showed pneumothorax. Review of Systems Constitutional: Denies chills, Denies fever Eyes: denies blurred vision, denies pain Cardiovascular: Denies chest pain, Denies shortness of breath Respiratory: Denies cough Musculoskeletal: Denies myalgias Past Medical History Past Medical History: Seizure Disorder Additional Past Medical History / Comment(s): no meds for seziures anymore History of Any Multi-Drug Resistant Organisms: MRSA Date of last positivie culture/infection: 2019 MDRO Source:: labia Past Surgical History: Section Past Anesthesia/Blood Transfusion Reactions: No Reported Reaction Past Psychological History: ADD/ADHD, Anxiety, Bipolar, Depression Smoking Status: Former smoker Past Alcohol Use History: None Reported Past Drug Use History: None Reported Medications and Allergies Home Medications Medication Instructions Recorded Confirmed Type ARIPiprazole [Abilify] 15 mg PO DAILY 09/07/13 05/26/20 History DULoxetine HCL [Cymbalta] 30 mg PO DAILY 10/16/14 05/26/20 History ARIPiprazole [Abilify] 10 mg PO DAILY 10/25/18 05/26/20 History levETIRAcetam [Keppra] 750 mg PO BID 05/27/20 05/27/20 History Allergies Allergy/AdvReac Type Severity Reaction Status Date / Time aspirin Allergy Swelling Verified 05/26/20 17:32 Physical Exam Vitals: Vital Signs Temp Pulse Pulse Resp BP BP Pulse Ox 05/27/20 12:24 84 16 92/49 100 05/27/20 08:30 99.1 F 76 18 114/56 97 05/27/20 04:00 97.7 F 71 20 105/53 99 05/27/20 00:00 97.6 F 83 18 104/57 100 05/26/20 20:20 98.3 F 91 22 115/58 100 05/26/20 19:53 100 19 108/58 99 05/26/20 19:17 87 17 116/70 100 05/26/20 17:26 89 05/26/20 17:21 98.5 F 94 18 117/58 100 Intake and Output 05/26/20 05/27/20 05/27/20 22:59 06:59 14:59 Intake Total 950 0 0 Balance 950 0 0 Intake: Oral 950 0 0 Other: Voiding Method Bedside Commode Bedside Commode Bedside Commode Bedpan Bedpan Bedpan # Voids 1 Weight 54.431 kg 60.5 kg - Constitutional General appearance: no acute distress - EENT Eyes: EOMI - Neck Neck: no lymphadenopathy - Respiratory Respiratory: bilateral: CTA - Cardiovascular Rhythm: regular Heart sounds: normal: S1, S2 Abnormal Heart Sounds: no S3 Gallop - Gastrointestinal General gastrointestinal: soft, no tenderness Results CBC & Chem 7: 05/26/20 17:38 05/27/20 07:13 Labs: Abnormal Lab Results - Last 24 Hours (Table) 05/26/20 05/26/20 05/26/20 Range/Units 17:38 17:38 17:38 WBC 11.7 H (3.8-10.6) k/uL Neutrophils # 9.1 H (1.3-7.7) k/uL D-Dimer 1.23 H (<0.60) mg/L FEU Potassium (3.5-5.1) mmol/L BUN (7-17) mg/dL Ur Leukocyte Esterase Trace H (Negative) Urine Bacteria Occasional H (None) /hpf Urine Mucus Rare H (None) /hpf Urine Opiates Screen (NotDetected) Urine Cocaine Screen (NotDetected) 05/26/20 05/27/20 Range/Units 17:38 07:13 WBC (3.8-10.6) k/uL Neutrophils # (1.3-7.7) k/uL D-Dimer (<0.60) mg/L FEU Potassium 3.3 L (3.5-5.1) mmol/L BUN 4 L (7-17) mg/dL Ur Leukocyte Esterase (Negative) Urine Bacteria (None) /hpf Urine Mucus (None) /hpf Urine Opiates Screen Detected H (NotDetected) Urine Cocaine Screen Detected H (NotDetected) Assessment and Plan (1) Spontaneous pneumothorax Current Visit: Yes Status: Acute Code(s): J93.83 - OTHER PNEUMOTHORAX SNOMED Code(s): 97703077 (2) Chest pain Current Visit: No Status: Acute Code(s): R07.9 - CHEST PAIN, UNSPECIFIED SNOMED Code(s): 20124552 (3) Cocaine abuse Current Visit: Yes Status: Acute Code(s): F14.10 - COCAINE ABUSE, UNCOMPLICATED SNOMED Code(s): 25101944 Plan: I do anticipate discharge once cleared by consultants. Reconcile medications. Prognosis is guarded secondary to her lifestyle. Follow up in 7 days Time with Patient: Greater than 30
== END 2020-05-27 13:54 | disposition home or self-care (01) ==
LOC: EC 17:14 → 3SCARD 19:23
PROVIDERS: ADMIT Family Medicine; ATTEND Family Medicine
DX: J93.83 Other pneumothorax (principal); F90.9 Attention-deficit hyperactivity disorder, unspecified type; F41.9 Anxiety disorder, unspecified; F31.30 Bipolar disorder, current episode depressed, mild or moderate severity, unspecified; M54.9 Dorsalgia, unspecified; R79.89 Other specified abnormal findings of blood chemistry; F14.10 Cocaine abuse, uncomplicated; G40.909 Epilepsy, unspecified, not intractable, without status epilepticus; Z79.899 Other long term (current) drug therapy; Z88.6 Allergy status to analgesic agent; Z86.14 Personal history of Methicillin resistant Staphylococcus aureus infection; Z87.891 Personal history of nicotine dependence
CPT/HCPCS: 96376 ×3; 96361; 96374; 96375; 99285; 36415; 93005; 85379; 80053 ×2; 83735; 84484; 85025; 85610; 85730; 81001; 81025; 80306; 71046 ×2; 71275; G0378 ×2; J2060; J2270 ×3; Q9967

== ENCOUNTER 2020-11-14 08:50 | Emergency (ER) | payer MEDICARE, OTHER ==
[2020-11-14 08:53] VITALS: BP 121/77; PULSE 86; RESP 16; TEMP 98.2
--- NOTE | 2020-11-14 09:19 | ED ---
Skin/Abscess/FB HPI - General Chief complaint: Skin/Abscess/Foreign Body Stated complaint: MRSA Time Seen by Provider: 11/14/20 09:00 Source: patient, RN notes reviewed Mode of arrival: ambulatory Limitations: no limitations - History of Present Illness Initial comments: This a 44-year-old female presents emergency from chief complaint of concerns of possible MRSA infection. Patient does have history of MRSA patient states she woke up a small abscess on the left side of her groin. Patient states she started shaving or some purulent drainage. No fevers or chills. Patient states that she has no others rashes or concerns. - Related Data Home Medications Medication Instructions Recorded Confirmed ARIPiprazole [Abilify] 15 mg PO DAILY 09/07/13 05/26/20 DULoxetine HCL [Cymbalta] 30 mg PO DAILY 10/16/14 05/26/20 ARIPiprazole [Abilify] 10 mg PO DAILY 10/25/18 05/26/20 levETIRAcetam [Keppra] 750 mg PO BID 05/27/20 05/27/20 Previous Rx's Medication Instructions Recorded Sulfamethox-Tmp 800-160Mg [Bactrim 1 each PO Q12HR #20 tab 11/14/20 Ds] Allergies Allergy/AdvReac Type Severity Reaction Status Date / Time aspirin Allergy Swelling Verified 11/14/20 08:53 Review of Systems ROS Statement: Those systems with pertinent positive or pertinent negative responses have been documented in the HPI. ROS Other: All systems not noted in ROS Statement are negative. Past Medical History Past Medical History: Seizure Disorder Additional Past Medical History / Comment(s): no meds for seziures anymore History of Any Multi-Drug Resistant Organisms: MRSA Date of last positivie culture/infection: 2019 MDRO Source:: labia Past Surgical History: Section Past Anesthesia/Blood Transfusion Reactions: No Reported Reaction Past Psychological History: ADD/ADHD, Anxiety, Bipolar, Depression Smoking Status: Former smoker Past Alcohol Use History: None Reported Past Drug Use History: None Reported General Exam Limitations: no limitations General appearance: alert, in no apparent distress Head exam: Present: atraumatic, normocephalic, normal inspection Respiratory exam: Present: normal lung sounds bilaterally. Absent: respiratory distress, wheezes, rales, rhonchi, stridor Cardiovascular Exam: Present: regular rate, normal rhythm, normal heart sounds. Absent: systolic murmur, diastolic murmur, rubs, gallop, clicks Skin exam: Present: other (Left groin there is a small 5 mm abscess with mild erythema, small opening noted) Course Vital Signs 11/14/20 08:51 Temperature 98.2 F Pulse Rate 86 Respiratory 16 Rate Blood Pressure 121/77 O2 Sat by Pulse 97 Oximetry Medical Decision Making - Medical Decision Making Patient has a very early abscess, ingrown hair on the left groin. She has concerns for MRSA patient be given Bactrim, warm compresses return parameters were discussed. Disposition Clinical Impression: Abscess of left groin Disposition: HOME SELF-CARE Condition: Stable Instructions (If sedation given, give patient instructions): Abscess (ED) Additional Instructions: Please return to the Emergency Department if symptoms worsen or any other concerns. Prescriptions: Sulfamethox-Tmp 800-160Mg [Bactrim Ds] 1 each PO Q12HR #20 tab Is patient prescribed a controlled substance at d/c from ED?: No Referrals: Ruslan Almeida MD [Primary Care Provider] - 1-2 days Time of Disposition: 09:19
== END 2020-11-14 09:40 | disposition home or self-care (01) ==
LOC: EC 08:50
DX: L02.214 Cutaneous abscess of groin (principal); G40.909 Epilepsy, unspecified, not intractable, without status epilepticus; Z87.891 Personal history of nicotine dependence; Z86.14 Personal history of Methicillin resistant Staphylococcus aureus infection
CPT/HCPCS: 99282

== ENCOUNTER 2021-04-05 09:54 | Emergency (ER) | payer MEDICARE, OTHER ==
[2021-04-05 10:15] VITALS: BP 99/59; PULSE 87; RESP 18; TEMP 98
--- NOTE | 2021-04-05 11:26 | ED ---
General Adult HPI - General Chief complaint: Skin/Abscess/Foreign Body Stated complaint: bump on chin Time Seen by Provider: 04/05/21 10:49 Source: patient, RN notes reviewed Mode of arrival: ambulatory Limitations: no limitations - History of Present Illness Initial comments: 45-year-old female presented from chief complaint of a lump on her chin. [place] ent states that she had a seizure here chin had a laceration which was repaired. Patient states that is not red, irritated. Patient states it is painful over the site. No fevers or chills noted with swallowing or difficulty breathing no other complaints. - Related Data Home Medications Medication Instructions Recorded Confirmed ARIPiprazole [Abilify] 15 mg PO DAILY 09/07/13 05/26/20 DULoxetine HCL [Cymbalta] 30 mg PO DAILY 10/16/14 05/26/20 ARIPiprazole [Abilify] 10 mg PO DAILY 10/25/18 05/26/20 levETIRAcetam [Keppra] 750 mg PO BID 05/27/20 05/27/20 Previous Rx's Medication Instructions Recorded Sulfamethox-Tmp 800-160Mg [Bactrim 1 each PO Q12HR #20 tab 04/05/21 Ds] Allergies Allergy/AdvReac Type Severity Reaction Status Date / Time aspirin Allergy Swelling Verified 04/05/21 10:12 Review of Systems ROS Statement: Those systems with pertinent positive or pertinent negative responses have been documented in the HPI. ROS Other: All systems not noted in ROS Statement are negative. Past Medical History Past Medical History: Seizure Disorder Additional Past Medical History / Comment(s): no meds for seziures anymore History of Any Multi-Drug Resistant Organisms: MRSA Date of last positivie culture/infection: 2019 MDRO Source:: labia Past Surgical History: Section Past Anesthesia/Blood Transfusion Reactions: No Reported Reaction Past Psychological History: ADD/ADHD, Anxiety, Bipolar, Depression Smoking Status: Former smoker Past Alcohol Use History: None Reported Past Drug Use History: Cocaine General Exam Limitations: no limitations General appearance: alert, in no apparent distress Head exam: Present: atraumatic, normocephalic, normal inspection Eye exam: Present: normal appearance, PERRL, EOMI. Absent: scleral icterus, conjunctival injection, periorbital swelling ENT exam: Present: normal oropharynx, mucous membranes moist, other (Swelling of the anterior chin with mild erythema). Absent: normal exam Course Vital Signs 04/05/21 10:12 Temperature 98 F Pulse Rate 87 Respiratory 18 Rate Blood Pressure 99/59 O2 Sat by Pulse 100 Oximetry Medical Decision Making - Medical Decision Making Patient has a small nonfluctuant abscess of the [place] placed on oral antibiotics return parameters were discussed. Disposition Clinical Impression: Abscess of chin Disposition: HOME SELF-CARE Condition: Stable Instructions (If sedation given, give patient instructions): Abscess (ED) Additional Instructions: Please return to the Emergency Department if symptoms worsen or any other concerns. Prescriptions: Sulfamethox-Tmp 800-160Mg [Bactrim Ds] 1 each PO Q12HR #20 tab Is patient prescribed a controlled substance at d/c from ED?: No Referrals: Ruslan Almeida MD [Primary Care Provider] - 1-2 days Time of Disposition: 11:26
== END 2021-04-05 12:01 | disposition home or self-care (01) ==
LOC: EC 09:54
DX: L02.01 Cutaneous abscess of face (principal); F90.9 Attention-deficit hyperactivity disorder, unspecified type; F41.9 Anxiety disorder, unspecified; F31.9 Bipolar disorder, unspecified; Z87.891 Personal history of nicotine dependence
CPT/HCPCS: 99283

== ENCOUNTER 2021-04-19 04:30 | Emergency (ER) | payer MEDICARE, OTHER ==
[2021-04-19 04:35] VITALS: BP 102/62; PULSE 98; RESP 16; TEMP 98.2
--- NOTE | 2021-04-19 04:43 | ED ---
Skin/Abscess/FB HPI - General Chief complaint: Skin/Abscess/Foreign Body Stated complaint: Abcess on chin Time Seen by Provider: 04/19/21 04:31 Source: patient, RN notes reviewed, old records reviewed Mode of arrival: ambulatory Limitations: no limitations - History of Present Illness Initial comments: This is a 45-year-old female DF for evaluation patient presents today for evaluation of chin pain swelling abscess or cellulitis patient states she's had a draining abscess prior a week was here place on antibiotics which gave her a yeast infection stop taking antibiotics and the symptoms are worsened increased swelling and pain to her chin area. No other infection or complaint. No fevers MD complaint: abscess/boil -: days(s) Tetanus Up to Date: yes Location: face Severity: mild Severity scale (1-10): 3 Quality: aching Consistency: constant Improves with: none Worsens with: none Context: none Associated symptoms: denies other symptoms - Related Data Home Medications Medication Instructions Recorded Confirmed ARIPiprazole [Abilify] 15 mg PO DAILY 09/07/13 05/26/20 DULoxetine HCL [Cymbalta] 30 mg PO DAILY 10/16/14 05/26/20 ARIPiprazole [Abilify] 10 mg PO DAILY 10/25/18 05/26/20 levETIRAcetam [Keppra] 750 mg PO BID 05/27/20 05/27/20 Previous Rx's Medication Instructions Recorded Sulfamethox-Tmp 800-160Mg [Bactrim 1 each PO Q12HR #20 tab 04/05/21 Ds] clindamycin HCL [Cleocin] 300 mg PO Q6HR #40 cap 04/19/21 Allergies Allergy/AdvReac Type Severity Reaction Status Date / Time aspirin Allergy Swelling Verified 04/19/21 04:35 Review of Systems ROS Statement: Those systems with pertinent positive or pertinent negative responses have been documented in the HPI. ROS Other: All systems not noted in ROS Statement are negative. Past Medical History Past Medical History: Seizure Disorder Additional Past Medical History / Comment(s): no meds for seziures anymore History of Any Multi-Drug Resistant Organisms: MRSA Date of last positivie culture/infection: 2019 MDRO Source:: labia Past Surgical History: Section Past Anesthesia/Blood Transfusion Reactions: No Reported Reaction Past Psychological History: ADD/ADHD, Anxiety, Bipolar, Depression Smoking Status: Former smoker Past Alcohol Use History: None Reported Past Drug Use History: Cocaine General Exam Limitations: no limitations General appearance: alert, in no apparent distress Head exam: Present: atraumatic, normocephalic, normal inspection, other (Chin does have significant swelling and redness) Eye exam: Present: normal appearance, PERRL, EOMI. Absent: scleral icterus, conjunctival injection, periorbital swelling ENT exam: Present: normal exam, mucous membranes moist Neck exam: Present: normal inspection. Absent: tenderness, meningismus, lymphadenopathy Respiratory exam: Present: normal lung sounds bilaterally. Absent: respiratory distress, wheezes, rales, rhonchi, stridor Cardiovascular Exam: Present: regular rate, normal rhythm, normal heart sounds. Absent: systolic murmur, diastolic murmur, rubs, gallop, clicks GI/Abdominal exam: Present: soft, normal bowel sounds. Absent: distended, tenderness, guarding, rebound, rigid Extremities exam: Present: normal inspection, full ROM, normal capillary refill. Absent: tenderness, pedal edema, joint swelling, calf tenderness Back exam: Present: normal inspection Neurological exam: Present: alert, oriented X3, CN II-XII intact Psychiatric exam: Present: normal affect, normal mood Skin exam: Present: warm, dry, intact, normal color. Absent: rash Course Vital Signs 04/19/21 04:33 Temperature 98.2 F Pulse Rate 98 Respiratory 16 Rate Blood Pressure 102/62 O2 Sat by Pulse 99 Oximetry - Reevaluation(s) Reevaluation #1: 04/19/21 07:18 Medical record is reviewed Reevaluation #2: 04/19/21 07:18 There is no drainable fluctuant abscess on palpation area of concern has Wendy been draining Medical Decision Making - Medical Decision Making 45 female to the ER today for evaluation patient has cellulitis and prior abscess infection we'll replace antibiotics and patient can be discharged home Disposition Clinical Impression: Cellulitis of chin Disposition: HOME SELF-CARE Condition: Fair Instructions (If sedation given, give patient instructions): Cellulitis (ED) Prescriptions: clindamycin HCL [Cleocin] 300 mg PO Q6HR #40 cap Is patient prescribed a controlled substance at d/c from ED?: No Referrals: Ruslan Almeida MD [Primary Care Provider] - 1-2 days
[2021-04-19] MEDS ORDERED: CLINDAMYCIN 150 MG CAP PO STA (04:44)
[2021-04-19] MEDS ORDERED: FLUCONAZOLE 150 MG TAB PO STA (04:44)
[2021-04-19] MEDS ORDERED: AMOXIC-POT CLAV 875-125MG 1 EACH TAB PO STA (04:44)
== END 2021-04-19 04:52 | disposition home or self-care (01) ==
LOC: EC 04:30
DX: L03.211 Cellulitis of face (principal); G40.909 Epilepsy, unspecified, not intractable, without status epilepticus; F90.9 Attention-deficit hyperactivity disorder, unspecified type; F41.9 Anxiety disorder, unspecified; F31.9 Bipolar disorder, unspecified; Z87.891 Personal history of nicotine dependence
CPT/HCPCS: 99283

== ENCOUNTER 2021-07-18 20:45 | Emergency (ER) | payer MEDICARE, OTHER ==
[2021-07-18 20:50] VITALS: BP 125/54; PULSE 111; RESP 18; TEMP 98.5
[2021-07-18 22:23] LABS: Appearance,Urine Cloudy (Clear); Bacteria,Urine Rare /hpf; Bilirubin,Urine Negative (Negative); Blood,Urine Moderate (Negative); Color,Urine Yellow; Glucose,Urine (UA) Negative (Negative); Ketones,Urine Negative (Negative); Leukocyte Esterase,Urine Large (Negative); Mucus,Urine Many /hpf; Nitrite,Urine Positive (Negative); PH, Urine 5.5 (5.0-8.0); Protein,Urine 2+ (Negative); RBC,Urine 66 /hpf (0-5); Specific Gravity,Urine 1.021 (1.001-1.035); Squamous Epithelial Cell,Urine 1 /hpf (0-4); Urobilinogen,Urine <2.0 mg/dL (<2.0); WBC,Urine >182 /hpf (0-5)
== END 2021-07-18 21:19 | disposition left against medical advice (07) ==
LOC: EC 20:45
DX: Z53.21 Procedure and treatment not carried out due to patient leaving prior to being seen by health care provider (principal)
CPT/HCPCS: 81001; 87077; 87086; 87186; 99499

== ENCOUNTER 2024-01-03 22:34 | Emergency (ER) | payer MEDICARE, OTHER ==
[2024-01-03 22:50] VITALS: RESP 16; TEMP 97.9
[2024-01-03] MEDS: SODIUM CHLORIDE 0.9% 1,000 ML IV STA (23:52)
[2024-01-03] MEDS: KETOROLAC 15 MG/ML 1 ML VIAL IVP STA (23:52)
[2024-01-04 00:17] LABS: Basophils % (A) 0 %; Eosinophils # (A) 0.1 k/uL (0-0.7); Eosinophils % (A) 1 %; HCT 43.1 % (34.0-46.0); HGB 13.9 gm/dL (11.4-16.0); Lymphocytes # (A) 2.2 k/uL (1.0-4.8); Lymphocytes % (A) 23 %; MCHC 32.3 g/dL (31.0-37.0); MCV 92.8 fL (80.0-100.0); Mean Platelet Volume 7.9; Monocytes # (A) 0.4 k/uL (0-1.0); Monocytes % (A) 5 %; Neutrophils # (A) 6.8 k/uL (1.3-7.7); Neutrophils % (A) 71 %; Platelet Count 252 k/uL (150-450); RBC 4.64 m/uL (3.80-5.40); RDW 12.9 % (11.5-15.5); WBC 9.6 k/uL (3.8-10.6)
[2024-01-04 00:31] LABS: ALT 6 U/L (4-34); African American GFR (CKD) >90 (>60 ml/min/1.73 sqM); Anion Gap 7 mmol/L; Blood Urea Nitrogen 11 mg/dL (7-17); Calcium 9.4 mg/dL (8.4-10.2); Carbon Dioxide 23 mmol/L (22-30); Chloride 107 mmol/L (98-107); Glucose 75 mg/dL (74-99); Non-African American GFR(CKD) 89 (>60 ml/min/1.73 sqM); Sodium 137 mmol/L (137-145)
[2024-01-04 00:37] LABS: AST 29 U/L (14-36); Albumin 4.2 g/dL (3.5-5.0); Alkaline Phosphatase 50 U/L (38-126); Potassium 4.5 mmol/L (3.5-5.1); Total Bilirubin 1.1 mg/dL (0.2-1.3); Total Protein 6.9 g/dL (6.3-8.2)
[2024-01-04 00:47] LABS: Appearance,Urine Clear (Clear); Bilirubin,Urine Negative (Negative); Blood,Urine Negative (Negative); Color,Urine Colorless; Glucose,Urine (UA) Negative (Negative); Ketones,Urine Negative (Negative); Leukocyte Esterase,Urine Negative (Negative); Nitrite,Urine Negative (Negative); PH, Urine 6.5 (5.0-8.0); Protein,Urine Negative (Negative); Specific Gravity,Urine 1.004 (1.001-1.035); Urobilinogen,Urine <2.0 mg/dL (<2.0)
[2024-01-04 01:00] LABS: Amphetamine Screen,Urine Not Detected (NotDetected); Barbiturate Screen,Urine Not Detected (NotDetected); Benzodiazepines Screen,Urine Not Detected (NotDetected); Cocaine Screen,Urine Detected (NotDetected); Methadone Screen, Urine Not Detected (NotDetected); Opiate Screen,Urine Not Detected (NotDetected); Oxycodone Screen, Urine Not Detected (NotDetected); Phencyclidine Screen,Urine Not Detected (NotDetected); Tricyclic Antidepressant,Urine Not Detected (NotDetected); Urn Cannabinoid Scrn Not Detected (NotDetected)
--- NOTE | 2024-01-04 01:30 | XR ---
EXAM: XR Cervical Spine, 4 or 5 Views CLINICAL HISTORY: ITS.REASON XR Reason: neck pain, possible trauma during seizure TECHNIQUE: Frontal, lateral and bilateral oblique views of the cervical spine. COMPARISON: No previous studies. FINDINGS: Vertebrae: There is a normal relationship of C1 and C2. No acute fracture. Normal alignment of the cervical spine. Disc spaces: Mild to moderate degenerative disc disease. Soft tissues: Unremarkable. IMPRESSION: 1. Mild to moderate degenerative disc disease. 2. Normal alignment.
--- NOTE | 2024-01-04 01:48 | ED ---
Seizure HPI - General Chief Complaint: Seizure Stated Complaint: Seizure Time Seen by Provider: 01/03/24 22:43 Source: EMS Mode of arrival: EMS - History of Present Illness Initial Comments: 48-year-old female with history of seizure disorder who presents emergency depa rtment thinking she had a seizure. Patient believes this was around 6 PM. States that she woke up on the floor complaining of neck pain. She last had a seizure 2 weeks ago. Patient does take Keppra for seizures but only takes it once a day. Thinks that twice a day is "too much". Patient also admits to doing cocaine today. Patient denies hitting her head. No headache or visual changes. No numbness, tingling or weakness in her extremities. No other alleviating, precipitating modifying factors - Related Data Home Medications Medication Instructions Recorded Confirmed ARIPiprazole [Abilify] 15 mg PO DAILY 09/07/13 05/26/20 DULoxetine HCL [Cymbalta] 30 mg PO DAILY 10/16/14 05/26/20 ARIPiprazole [Abilify] 10 mg PO DAILY 10/25/18 05/26/20 levETIRAcetam [Keppra] 750 mg PO BID 05/27/20 05/27/20 Previous Rx's Medication Instructions Recorded Sulfamethox-Tmp 800-160Mg [Bactrim 1 each PO Q12HR #20 tab 04/05/21 Ds] clindamycin HCL [Cleocin] 300 mg PO Q6HR #40 cap 04/19/21 Sulfamethox-Tmp 800-160Mg [Bactrim 1 each PO Q12HR #14 tab 06/01/22 Ds] Nitrofurantoin Monohyd/M-Cryst 100 mg PO Q12HR #14 cap 08/28/22 [Macrobid] Acetaminophen Tab [Tylenol Tab] 500 mg PO Q4H PRN #30 tablet 10/26/22 Cephalexin [Keflex] 500 mg PO Q6HR #28 cap 10/26/22 Sulfamethox-Tmp 800-160Mg [Bactrim 1 each PO Q12HR #14 tab 10/26/22 Ds] Allergies Allergy/AdvReac Type Severity Reaction Status Date / Time aspirin Allergy Swelling Verified 08/28/22 18:46 Review of Systems ROS Statement: Those systems with pertinent positive or pertinent negative responses have been documented in the HPI. ROS Other: All systems not noted in ROS Statement are negative. Past Medical History Past Medical History: Seizure Disorder Additional Past Medical History / Comment(s): no meds for seziures anymore History of Any Multi-Drug Resistant Organisms: MRSA Date of last positivie culture/infection: 2019 MDRO Source:: labia Past Surgical History: Section Past Anesthesia/Blood Transfusion Reactions: No Reported Reaction Past Psychological History: ADD/ADHD, Anxiety, Bipolar, Depression Smoking Status: Former smoker Past Alcohol Use History: None Reported Past Drug Use History: Cocaine General Exam General appearance: alert, in no apparent distress Head exam: Present: atraumatic, normocephalic, normal inspection Eye exam: Present: normal appearance, PERRL, EOMI. Absent: scleral icterus, conjunctival injection, periorbital swelling ENT exam: Present: normal exam, mucous membranes moist Neck exam: Present: normal inspection. Absent: tenderness, meningismus, ly mphadenopathy Respiratory exam: Present: normal lung sounds bilaterally. Absent: respiratory distress, wheezes, rales, rhonchi, stridor Cardiovascular Exam: Present: regular rate, normal rhythm, normal heart sounds. Absent: systolic murmur, diastolic murmur, rubs, gallop, clicks GI/Abdominal exam: Present: soft, normal bowel sounds. Absent: distended, tenderness, guarding, rebound, rigid Extremities exam: Present: normal inspection, full ROM, normal capillary refill. Absent: tenderness, pedal edema, joint swelling, calf tenderness Back exam: Present: normal inspection Neurological exam: Present: alert, oriented X3, CN II-XII intact Psychiatric exam: Present: normal affect, normal mood Skin exam: Present: warm, dry, intact, normal color. Absent: rash Course Vital Signs 01/03/24 01/04/24 22:41 01:58 Temperature 97.9 F Pulse Rate 91 80 Respiratory 16 16 Rate Blood Pressure 129/83 O2 Sat by Pulse 98 97 Oximetry Medical Decision Making - Medical Decision Making Was pt. sent in by a medical professional or institution (, PA, FRONT OFFICE SPEC, urgent care, hospital, or care home...) When possible be specific @ -No Did you speak to anyone other than the patient for history (EMS, parent, family, police, friend...)? What history was obtained from this source @ -Spoke with EMS for history Did you review nursing and triage notes (agree or disagree)? Why? @ -I reviewed and agree with nursing and triage notes Were old charts reviewed (outside hosp., previous admission, EMS record, old EKG, old radiological studies, urgent care reports/EKG's, care home records)? Report findings @ -No old charts were reviewed Differential Diagnosis (chest pain, altered mental status, abdominal pain women, abdominal pain men, vaginal bleeding, weakness, fever, dyspnea, syncope, headache, dizziness, GI bleed, back pain, seizure, CVA, palpatations, mental health, musculoskeletal)? @ -Differential Seizure: Recurrent seizure disorder, febrile seizure, alcohol withdrawal, stimulants, meningitis, encephalitis, intercranial hemorrhage, intracranial tumor, stroke, eclampsia, thyrotoxicosis, hypocalcemia, hyponatremia, hypernatremia, hypomagnesemia, psychogenic, this is not meant to be an all-inclusive list. EKG interpreted by me (3pts min.). @ -yes and demonstrate sinus rhythm with a rate of 90. WA interval 127. QRS 82. QTc of 414. No acute ST segment elevations or depressions X-rays interpreted by me (1pt min.). @ -Yes and does not demonstrate any acute trauma to the neck CT interpreted by me (1pt min.). @ -None done U/S interpreted by me (1pt. min.). @ -None done What testing was considered but not performed or refused? (CT, X-rays, U/S, labs)? Why? @ -None What meds were considered but not given or refused? Why? @ -None Did you discuss the management of the patient with other professionals (professionals i.e. , PA, FRONT OFFICE SPEC, lab, RT, psych nurse, community mental health social worker, level vial grinder, teacher, credit or loans officer, child support case officer)? Give summary @ -No Was smoking cessation discussed for >3mins.? @ -No Was critical care preformed (if so, how long)? @ -No Were there social determinants of health that impacted care today? How? (Homelessness, low income, unemployed, alcoholism, drug addiction, transportation, low edu. Level, literacy, decrease access to med. care, alf, rehab)? @ -No Was there de-escalation of care discussed even if they declined (Discuss DNR or withdrawal of care, Hospice)? DNR status @ -No What co-morbidities impacted this encounter? (DM, HTN, Smoking, COPD, CAD, Cancer, CVA, ARF, Chemo, Hep., AIDS, mental health diagnosis, sleep apnea, morbid obesity)? @ -Seizure disorder Was patient admitted / discharged? Hospital course, mention meds given and route, prescriptions, significant lab abnormalities, going to OR and other pertinent info. @ -Upon arrival patient seen and evaluated in room 12. Thorough history and physical exam was performed. Laboratory studies are conducted. X-ray of the neck was performed. Patient insistent that she does not need a CT of her head. Upon return the results they are discussed with patient. I did recommend that she take her medications as they are prescribed. She needs to follow-up with h er neurologist and return for any new or worsening symptoms. Patient agreeable plan was discharged in stable condition Undiagnosed new problem with uncertain prognosis? @ -No Drug Therapy requiring intensive monitoring for toxicity (Heparin, Nitro, Insulin, Cardizem)? @ -No Were any procedures done? @ -No Diagnosis/symptom? @ -Acute breakthrough seizure, history of seizure disorder, acute neck pain Acute, or Chronic, or Acute on Chronic? @ -Acute Uncomplicated (without systemic symptoms) or Complicated (systemic symptoms)? @ -Complicated Side effects of treatment? @ -No Exacerbation, Progression, or Severe Exacerbation? @ -No Poses a threat to life or bodily function? How? (Chest pain, [place], [place], pneumonia, PE, COPD, DKA, ARF, appy, cholecystitis, CVA, Diverticulitis, Homicidal, Susan cidal, threat to staff... and all critical care pts) @ -No - Lab Data Result diagrams: 01/03/24 23:56 01/03/24 23:56 Lab Results 01/03/24 01/03/24 01/03/24 Range/Units 23:56 23:56 23:56 WBC 9.6 (3.8-10.6) k/uL RBC 4.64 (3.80-5.40) m/uL Hgb 13.9 (11.4-16.0) gm/dL Hct 43.1 (34.0-46.0) % MCV 92.8 (80.0-100.0) fL MCH 30.0 (25.0-35.0) pg MCHC 32.3 (31.0-37.0) g/dL RDW 12.9 (11.5-15.5) % Plt Count 252 (150-450) k/uL MPV 7.9 Neutrophils % 71 % Lymphocytes % 23 % Monocytes % 5 % Eosinophils % 1 % Basophils % 0 % Neutrophils # 6.8 (1.3-7.7) k/uL Lymphocytes # 2.2 (1.0-4.8) k/uL Monocytes # 0.4 (0-1.0) k/uL Eosinophils # 0.1 (0-0.7) k/uL Basophils # 0.0 (0-0.2) k/uL Sodium 137 (137-145) mmol/L Potassium 4.5 (3.5-5.1) mmol/L Chloride 107 (98-107) mmol/L Carbon Dioxide 23 (22-30) mmol/L Anion Gap 7 mmol/L BUN 11 (7-17) mg/dL Creatinine 0.80 (0.52-1.04) mg/dL Est GFR (CKD-EPI)AfAm >90 (>60 ml/min/1.73 sqM) Est GFR (CKD-EPI)NonAf 89 (>60 ml/min/1.73 sqM) Glucose 75 (74-99) mg/dL Calcium 9.4 (8.4-10.2) mg/dL Total Bilirubin 1.1 (0.2-1.3) mg/dL AST 29 (14-36) U/L ALT 6 (4-34) U/L Alkaline Phosphatase 50 (38-126) U/L Total Protein 6.9 (6.3-8.2) g/dL Albumin 4.2 (3.5-5.0) g/dL Urine Color Urine Appearance (Clear) Urine pH (5.0-8.0) Ur Specific [place] (1.001-1.035) Urine Protein (Negative) Urine Glucose (UA) (Negative) Urine Ketones (Negative) Urine Blood (Negative) Urine Nitrite (Negative) Urine Bilirubin (Negative) Urine Urobilinogen (<2.0) mg/dL Ur Leukocyte Esterase (Negative) Urine Opiates Screen (NotDetected) Ur Oxycodone Screen (NotDetected) Urine Methadone Screen (NotDetected) Ur Barbiturates Screen (NotDetected) U Tricyclic Antidepress (NotDetected) Levetiracetam 32.1 (3.0-60.0) ug/mL Ur Phencyclidine Scrn (NotDetected) Ur Amphetamines Screen (NotDetected) U Methamphetamines Scrn (NotDetected) U Benzodiazepines Scrn (NotDetected) Urine Cocaine Screen (NotDetected) U Marijuana (THC) Screen (NotDetected) 01/04/24 Range/Units 00:42 WBC (3.8-10.6) k/uL RBC (3.80-5.40) m/uL Hgb (11.4-16.0) gm/dL Hct (34.0-46.0) % MCV (80.0-100.0) fL MCH (25.0-35.0) pg MCHC (31.0-37.0) g/dL RDW (11.5-15.5) % Plt Count (150-450) k/uL MPV Neutrophils % % Lymphocytes % % Monocytes % % Eosinophils % % Basophils % % Neutrophils # (1.3-7.7) k/uL Lymphocytes # (1.0-4.8) k/uL Monocytes # (0-1.0) k/uL Eosinophils # (0-0.7) k/uL Basophils # (0-0.2) k/uL Sodium (137-145) mmol/L Potassium (3.5-5.1) mmol/L Chloride (98-107) mmol/L Carbon Dioxide (22-30) mmol/L Anion Gap mmol/L BUN (7-17) mg/dL Creatinine (0.52-1.04) mg/dL Est GFR (CKD-EPI)AfAm (>60 ml/min/1.73 sqM) Est GFR (CKD-EPI)NonAf (>60 ml/min/1.73 sqM) Glucose (74-99) mg/dL Calcium (8.4-10.2) mg/dL Total Bilirubin (0.2-1.3) mg/dL AST (14-36) U/L ALT (4-34) U/L Alkaline Phosphatase (38-126) U/L Total Protein (6.3-8.2) g/dL Albumin (3.5-5.0) g/dL Urine Color Colorless Urine Appearance Clear (Clear) Urine pH 6.5 (5.0-8.0) Ur Specific [place] 1.004 (1.001-1.035) Urine Protein Negative (Negative) Urine Glucose (UA) Negative (Negative) Urine Ketones Negative (Negative) Urine Blood Negative (Negative) Urine Nitrite Negative (Negative) Urine Bilirubin Negative (Negative) Urine Urobilinogen <2.0 (<2.0) mg/dL Ur Leukocyte Esterase Negative (Negative) Urine Opiates Screen Not Detected (NotDetected) Ur Oxycodone Screen Not Detected (NotDetected) Urine Methadone Screen Not Detected (NotDetected) Ur Barbiturates Screen Not Detected (NotDetected) U Tricyclic Antidepress Not Detected (NotDetected) Levetiracetam (3.0-60.0) ug/mL Ur Phencyclidine Scrn Not Detected (NotDetected) Ur Amphetamines Screen Not Detected (NotDetected) U Methamphetamines Scrn Not Detected (NotDetected) U Benzodiazepines Scrn Not Detected (NotDetected) Urine Cocaine Screen Detected H (NotDetected) U Marijuana (THC) Screen Not Detected (NotDetected) Disposition Clinical Impression: Cocaine abuse, Breakthrough seizure Disposition: HOME SELF-CARE Condition: Stable Instructions (If sedation given, give patient instructions): Seizure/Epilepsy Discharge Instructions & Follow-Up, Recurrent Seizures in Adults (ED) Additional Instructions: Please follow-up with your neurologist within 1 week. I recommend that you take your Keppra twice a day. Return for any new or worsening symptoms Is patient prescribed a controlled substance at d/c from ED?: No Referrals: Ruslan Almeida MD [Primary Care Provider] - 1-2 days Time of Disposition: 01:48
[2024-01-04 02:00] VITALS: BP 129/83; PULSE 80
== END 2024-01-04 02:00 | disposition home or self-care (01) ==
LOC: EC 22:34
DX: R56.9 Unspecified convulsions
CPT/HCPCS: 36415; 72050; 80053; 80177; 80306; 81003; 85025; 96361; 96374; 99285

== ENCOUNTER → 2024-02-28 | Outpatient (CLI) | payer MEDICARE ==
--- NOTE | 2024-02-29 20:12 | US ---
EXAMINATION TYPE: US pelvic complete DATE OF EXAM: 02/28/2024 COMPARISON: NONE CLINICAL INDICATION: Female, 48 years old with history of N93.9 ABNORMAL UTERINE AND VAGINAL BLEEDING ; spotting TECHNIQUE: Transabdominal (TA). Transabdominal grayscale sonographic images of the pelvis were acquired. FINDINGS: Date of LMP: 17 years ago, spotting EXAM MEASUREMENTS: Uterus: 7.4x3.7x5.7 cm Endometrial Stripe: 0.6 cm Right Ovary: 2.8x1.9x1.7 cm Left Ovary: 4.4x2.4x1.8 cm 1. Uterus: Anteverted wnl 2. Endometrium: wnl 3. Right Ovary: wnl 4. Left Ovary: wnl Spectral, color and waveform doppler imaging shows good arterial and venous flow within the ovaries ; there is no evidence for ovarian torsion. 5. Bilateral Adnexa: Obscured by overlying bowel gas 6. Posterior cul-de-sac: wnl IMPRESSION: No discrete abnormality present. [facility], , 02/29/2024 8:10 PM
== END | disposition home or self-care (01) ==
LOC: RADUSWWP 16:22
PROVIDERS: ATTEND Family Medicine
DX: N93.9 Abnormal uterine and vaginal bleeding, unspecified (principal)
CPT/HCPCS: 76856; 93975

== ENCOUNTER 2024-11-10 04:43 | Emergency (ER) | payer MEDICARE, OTHER ==
--- NOTE | 2024-11-10 05:18 | ED ---
Skin/Abscess/FB HPI <Dion Cantu - Last Filed: 11/10/24 05:25> - General Source: patient Mode of arrival: ambulatory <PeterRena - Last Filed: 11/10/24 21:23> - General Chief complaint: Skin/Abscess/Foreign Body Stated complaint: Rash on Neck - History of Present Illness Initial comments: 48F here for evaluation of rash. Patient reported that she began to have a rash on the right side of her neck that is puritic and erythematous within the past day. She denied fever, chills, nausea, vomiting, diarrhea, chest pain, palpitations, abdominal pain, any known allergy. (Rena Green) - Related Data Home Medications Medication Instructions Recorded Confirmed ARIPiprazole [Abilify] 15 mg PO DAILY 09/07/13 05/26/20 DULoxetine HCL [Cymbalta] 30 mg PO DAILY 10/16/14 05/26/20 ARIPiprazole [Abilify] 10 mg PO DAILY 10/25/18 05/26/20 levETIRAcetam [Keppra] 750 mg PO BID 05/27/20 05/27/20 Previous Rx's Medication Instructions Recorded Sulfamethox-Tmp 800-160Mg [Bactrim 1 each PO Q12HR #20 tab 04/05/21 Ds] clindamycin HCL [Cleocin] 300 mg PO Q6HR #40 cap 04/19/21 Sulfamethox-Tmp 800-160Mg [Bactrim 1 each PO Q12HR #14 tab 06/01/22 Ds] Nitrofurantoin Monohyd/M-Cryst 100 mg PO Q12HR #14 cap 08/28/22 [Macrobid] Acetaminophen Tab [Tylenol Tab] 500 mg PO Q4H PRN #30 tablet 10/26/22 Cephalexin [Keflex] 500 mg PO Q6HR #28 cap 10/26/22 Sulfamethox-Tmp 800-160Mg [Bactrim 1 each PO Q12HR #14 tab 10/26/22 Ds] Triamcinolone 0.1% Cream [Kenalog 1 applicatio TOPICAL BID #15 gm 11/10/24 0.1% Cream] Allergies Allergy/AdvReac Type Severity Reaction Status Date / Time aspirin Allergy Swelling Verified 11/10/24 04:48 Review of Systems ROS Other: All systems not noted in ROS Statement are negative. <Dion Cantu - Last Filed: 11/10/24 05:25> ROS Other: All systems not noted in ROS Statement are negative. <Rena Green - Last Filed: 11/10/24 21:23> ROS Statement: Those systems with pertinent positive or pertinent negative responses have been documented in the HPI. Past Medical History Past Medical History: Seizure Disorder Additional Past Medical History / Comment(s): no meds for seziures anymore History of Any Multi-Drug Resistant Organisms: MRSA Date of last positivie culture/infection: 2019 MDRO Source:: labia Past Surgical History: Section Past Anesthesia/Blood Transfusion Reactions: No Reported Reaction Past Psychological History: ADD/ADHD, Anxiety, Bipolar, Depression Smoking Status: Former smoker Past Alcohol Use History: None Reported Past Drug Use History: Cocaine <Rena Green - Last Filed: 11/10/24 21:23> General Exam <Rena Green - Last Filed: 11/10/24 21:23> - General Exam Comments Initial Comments: Physical examination: Vital signs reviewed General: non toxic, no distress, appears at stated age Skin: erythematous maculopapular area noted on right side of neck without discharge, bleeding or foul odor Head: atraumatic, normocephalic, symmetric Mouth: no lip lesion, mucus membranes moist Neck: supple, trachea midline, no masses Cardiovascular: S1S2 reg, no murmur Lungs: CTA bilateral, no rhonchi, no rales, no accessory muscle use Abdominal: soft, nondistended, nontender to palpation, no guarding Ext: muscle strength 5 out of 5 in all 4 extremities grossly, no gross muscle atrophy, no contractures, positive dorsalis pedis pulse bilateral, no edema Neuro: no gross focal neuro deficits Psych: Alert and oriented x3, appropriate affect and mood (Rena Green) Course Vital Signs 11/10/24 11/10/24 04:45 05:53 Temperature 98.1 F 98.3 F Pulse Rate 109 H 77 Respiratory 22 16 Rate Blood Pressure 130/85 118/78 O2 Sat by Pulse 98 100 Oximetry Medical Decision Making <Rena Green - Last Filed: 11/10/24 21:23> - Medical Decision Making Was pt. sent in by a medical professional or institution (, LILLY, DIVISION SUPERVISOR, urgent care, hospital, or [facility]...) When possible be specific @ -[No] Did you speak to anyone other than the patient for history (EMS, parent, family, police, friend...)? What history was obtained from this source @ -[No] Did you review nursing and triage notes (agree or disagree)? Why? @ -[I reviewed and agree with nursing and triage notes] Were old charts reviewed (outside hosp., previous admission, EMS record, old EKG, old radiological studies, urgent care reports/EKG's, [facility] records)? Report findings @ -[No old charts were reviewed] Differential Diagnosis? @ -MDM differential rash: Allergy, dermatitis, viral infection, bacterial infection, trauma... this is not an exhaustive list of differentials EKG interpreted by me (3pts min.). @ -[As above] X-rays interpreted by me (1pt min.). @ -[None done] CT interpreted by me (1pt min.). @ -[None done] U/S interpreted by me (1pt. min.). @ -[None done] What testing was considered but not performed or refused? (CT, X-rays, U/S, labs)? Why? @ -[None] What meds were considered but not given or refused? Why? @ -[None] Did you discuss the management of the patient with other professionals (professionals i.e. LILLY Bloom, DIVISION SUPERVISOR, lab, RT, psych nurse, social work manager, bull gang worker, teacher, credit control officer, rn case management)? Give summary @ -Dr. Cantu, supervising physician Was smoking cessation discussed for >3mins.? @ -[No] Was critical care preformed (if so, how long)? @ -[No] Were there social determinants of health that impacted care today? How? (Homelessness, low income, unemployed, alcoholism, drug addiction, transportation, low edu. Level, literacy, decrease access to med. care, detention, rehab)? @ -[No] Was there de-escalation of care discussed even if they declined (Discuss DNR or withdrawal of care, Hospice)? DNR status @ -[No] What co-morbidities impacted this encounter? (DM, HTN, Smoking, COPD, CAD, Cancer, CVA, ARF, Chemo, Hep., AIDS, mental health diagnosis, sleep apnea, morbid obesity)? @ -[None] Was patient admitted / discharged? Hospital course, mention meds given and route, prescriptions, significant lab abnormalities, going to OR and other pertinent info. @ -Discharge. patient's rash did not worsen and has been stable during visit. Sent home on triamcinolone cream. Undiagnosed new problem with uncertain prognosis? @ -[No] Drug Therapy requiring intensive monitoring for toxicity (Heparin, Nitro, Insulin, Cardizem)? @ -[No] Were any procedures done? @ -[No] Diagnosis/symptom? @ -[default] Acute, or Chronic, or Acute on Chronic? @ -[default] Uncomplicated (without systemic symptoms) or Complicated (systemic symptoms)? @ -[default] Side effects of treatment? @ -[No] Exacerbation, Progression, or Severe Exacerbation? @ -[No] Poses a threat to life or bodily function? How? (Chest pain, [place], [place], pneumonia, PE, COPD, DKA, ARF, appy, cholecystitis, CVA, Diverticulitis, Homicidal, Suicidal, threat to staff... and all critical care pts) @ -[No] (Rena Green) Disposition Is patient prescribed a controlled substance at d/c from ED?: No <Dion Cantu - Last Filed: 11/10/24 05:25> Time of Disposition: 05:50 <Rena Green - Last Filed: 11/10/24 21:23> Clinical Impression: Contact dermatitis Disposition: HOME SELF-CARE Condition: Good Instructions (If sedation given, give patient instructions): Contact Dermatitis (ED) Prescriptions: Triamcinolone 0.1% Cream [Kenalog 0.1% Cream] 1 applicatio TOPICAL BID #15 gm Referrals: Ruslan Almeida MD [Primary Care Provider] - 1-2 days
[2024-11-10] MEDS: TRIAMCINOLONE 0.1% CREAM 80 GM TUBE TOPICAL STA (05:53)
[2024-11-10 06:06] VITALS: BP 118/78; PULSE 77; RESP 16; TEMP 98.3
== END 2024-11-10 05:53 | disposition home or self-care (01) ==
LOC: EC 04:43
DX: L25.9 Unspecified contact dermatitis, unspecified cause (principal); Z87.891 Personal history of nicotine dependence; Z88.6 Allergy status to analgesic agent
CPT/HCPCS: 99282